=== PATIENT | female | born 1985 | race Caucasian/White ===

== ENCOUNTER 2019-06-20 13:06 | Outpatient (CLI) | payer BC, SELFPAY ==
[2019-06-20 13:31] LABS: HCT 39.7 % (36.0-46.0); HGB 13.5 g/dL (12.0-15.5); Mean Corpuscular Hemoglobin 30.3 pg (27.0-33.0); Mean Platelet Volume 10.5 fL (8.0-11.0); Platelet Count 311 x1000/uL (130-400); RBC 4.46 m/cumm (4.00-5.20); RBC Distribution Width 13.8 % (11.7-14.6); White Blood Cell Count 9.34 k/cumm (4.4-10.8)
[2019-06-20 14:52] LABS: HCG Quant, Pregnancy < 1 mIU/mL (1-3)
== END 2019-06-20 13:26 ==
PROVIDERS: PCP Nurse Practitioner Adult Health; Visit Provider Obstetrics & Gynecology
DX: Z01.818 Encounter for other preprocedural examination (principal)
CPT/HCPCS: 36415; 85027; 86850; 86900; 86901; 84702

== ENCOUNTER 2019-06-26 06:14 | Day surgery (SDC) | payer BC, SELFPAY ==
[2019-06-26] VITALS (7 sets, daily range): BP systolic 114–129; BP diastolic 65–78; PULSE 51–78; RESP 11–17; TEMP 36.3–36.9; O2SAT 96–100
[2019-06-26] MEDS: Lactated Ringers 1,000 ML 125 ML IV (07:15)
[2019-06-26] MEDS: Bupivacaine 0.25% Pres-Free 30 ML VIAL (08:11)
--- NOTE | 2019-06-26 08:25 | FALL_PTH ---
PATIENT: Juany Tristan LOC: [facility] U#:[id number] AGE/SX: 34/F ROOM: RE06/26/[address]: Milly Still MD : [id number] BED: DIS: 06/26/2019 SPEC #: [id number] RECD: 06/26/19 12:41 STATUS: [facility] #: [id number] LUDIN: 06/26/19 08:[address]: Milly Still DEPT: Surgical Specimen RECD BY: Ella Monzon ENTERED: 06/26/19 12:43 SP TYPE: Fall OTHR DR: Juany Landon Tissues: 1 - FALLOPIAN TUBE (STERILIZATION) 2 - FALLOPIAN TUBE (STERILIZATION) Procedures: GROSS AND MICRO LEVEL 2 Comments: [id number]
[2019-06-26] MEDS: oxyCODONE 5 mg/Acetaminophen 325 mg TAB PO (10:32)
--- NOTE | 2019-06-26 11:06 | ROE_ITS ---
REPORT OF OPERATIVE PROCEDURE DATE OF PROCEDURE June 26, 2019 PREOPERATIVE DIAGNOSIS Desires permanent sterilization. POSTOPERATIVE DIAGNOSIS Desires permanent sterilization. PROCEDURE Laparoscopic bilateral salpingectomy. SURGEON Milly Still M.D. ANESTHESIA General. COMPLICATIONS None. ESTIMATED BLOOD LOSS 50 cc. FLUIDS 700 cc LR. URINE OUTPUT 200 SPECIMENS Bilateral fallopian tubes. PROCEDURE DESCRIPTION The patient was taken to the Operating Room, where she was properly identified. She was then placed on the Operating Table in a dorsal supine position. General anesthesia was induced without difficult y. The patient was then placed in the dorsal lithotomy position, and prepped and draped in a normal sterile fashion. With all surgical personnel present, a forma time-out procedure was performed, confi rming the patient and the procedure. The patient had SCDs boots on. A red rubber catheter was used to drain the bladder of clear urine. A bivalved speculum was placed. The cervix was visualized, grasped on the anterior lip with a single- tooth tenaculum. The uterine manipulator was advanced without difficulty. The surgeon changed her g loves and attention was then turned to the abdomen where an infraumbilical injection of 0.25% strengt h Marcaine was made. A 5-mm incision was made. The Veress needle was advanced into the peritoneal cavity without difficulty. Location was confirmed with a fluid-filled syringe drop in pressure. The abdomen was then insufflated with CO2 gas. The Veress needle removed and under direct visualizat ion the 5-mm infraumbilical port was advanced without difficulty. The patient was then placed in Trendelenburg position. A survey of the abdomen revealed a normal live and gallbladder. Normal appendix. The ureters were identified bilaterally along their course on the pelvic sidewall. Bilateral ovaries were normal, and tubes were excised at the end of the procedure. Attention was then turned to placing the two lower 5-mm ports by first injecting with 0.25 strength M arcaine, making a 5-mm subcuticular incision and advancing the ports under direct visualization. Attention was then turned to the right, the fallopian tube was grasped on its fimbriated end. Using t he bipolar cautery, the entire tube was excised along the mesosalpinx to the level of the junction of the tube and the uterus. The tube was removed and sent to Pathology for permanent evaluation. There was a small amount of bleeding along the mesosalpinx, which was made hemostatic with cautery. Attention was then turned to the opposite tube, and again in a similar fashion, the fallopian tube wa s identified, grasped by its fimbriated end. Using the bipolar cautery, the tube was excised along t he mesosalpinx to the level of the junction with the uterus. The fallopian tube was excised at this c onjuncture, removed and sent to Pathology for permanent evaluation. The operative sites were then inspected and found to be hemostatic. Pressure was taken down and the o perative area remained hemostatic. The abdomen was desufflated of CO2 gas. Ports removed and the skin closed with #4-0 Monocryl in a subcuticular fashion. Sponge, lap, needle and instrument counts were correct x2. The uterine manipulator was removed, there was no evidence of bleeding. The patient was taken to the Recovery Room in stable condition. CC: [facility]
== END 2019-06-26 11:00 | disposition home or self-care (01) ==
PROVIDERS: PCP Nurse Practitioner Adult Health; Visit Provider Obstetrics & Gynecology
PROC: (CPT 58661; principal; 2019-06-26 07:30)
DX: Z30.2 Encounter for sterilization (principal); N83.8 Other noninflammatory disorders of ovary, fallopian tube and broad ligament
CPT/HCPCS: 58661; 88302; J0131; J1100; J1200; J1885; J2250; J2405; J3010

== ENCOUNTER 2019-09-14 16:54 | Emergency (ER) | payer MEDICAID, SELFPAY ==
[2019-09-14 16:57] VITALS: BP 136/69; PULSE 75; RESP 18; TEMP 36.7; O2SAT 100
[2019-09-14 17:11] LABS: Bilirubin Negative (Negative); Blood Small (Negative); Clarity Cloudy (Clear); Glucose 100 mg/dL (Negative); Ketones Negative (Negative); Leukocyte Esterase Trace (Negative); Nitrite Positive (Negative); Specific Gravity 1.015 (1.005-1.025); pH 8.5 (5-8)
--- NOTE | 2019-09-14 17:26 | ED.GENADUL_ITS ---
Discharge Plan Disposition Patient Disposition: HOME Discharge Details Chief Complaint: Urinary Clinical Impression: UTI (urinary tract infection) Primary Care Provider: Juany Landon ED Provider: Mohamud Pinedo Home Meds and New Rx's Prescriptions: New cephalexin [Keflex] 500 mg capsule 500 mg PO BID Qty: 9 RF: 0 Continued multivitamin [Daily Multi-Vitamin] Tablet 1 tab PO DAILY RF: 0 Denavir 1.5 GM cream 1.5 gm Topical PRN RF: 0 Discharge Instructions Instructions: Urinary Tract Infection in Women (ED) Additional Instructions: Please take full course of antibiotic as prescribed. Stop taking Azo. If symptoms persist, follow-up with your doctor or motorcycle police officer. Return to the ER for any worsening or new concerning symptoms. Discharge Data Discharge Date/Time-TO BE ENTERED AT DEPARTURE: 09/14/19 17:55 Medical Decision Making 34-year-old female here with dysuria, increased urinary frequency over the past 3 days not resolved with [id number] Azo. Patient did have low-grade fever of 99 yesterday. Patient is afebrile and well-appearing today. Urinalysis reviewed and consistent with UTI. Plan to treat with Keflex. Will initiate antibiotic treatment here. HPI General Mode of arrival: ambulatory . Date/Time Provider Initiated Documentation: 09/14/19 17:18 . Limitations to Documentation: no limitations . Information obtained by: patient . HPI Narrative: 34-year-old female here with chief complaint of urinary discomfort. Patient states burning with urination and increased urinary frequency of the past 3 days. Symptoms have persisted despite taking [id number]-[id number] Azo. She did have associated low-grade fever of 99 yesterday. No associated nausea or vomiting. She does have some back discomfort but she states this is chronic. Related Data Home Medications Medication Instructions Recorded Confirmed Denavir 1.5 gm TOPICAL PRN script 11/12/13 09/14/19 multivitamin 1 tab PO DAILY 06/12/19 09/14/19 cephalexin [Keflex] 500 mg PO BID #9 cap 09/14/19 Previous Rx's Medication Instructions Recorded cephalexin [Keflex] 500 mg PO BID #9 cap 09/14/19 Allergies Allergy/AdvReac Type Severity Reaction Status Date / Time Sulfa (Sulfonamide Allergy Severe hives,itching, Verified 07/11/19 09:18 Antibiotics) closing of the throat General Stated Complaint: Urinary MALIKA: 4 Review of Systems Constitutional Constitutional: Reports fever(s) Gastrointestinal Gastrointestinal: Denies nausea and Denies vomiting Genitourinary Genitourinary: Reports as per HPI and Reports dysuria PFSH Medical History Spontaneous early 10/2013 [facility] Quant was 71 Social History Smoking/Tobacco Use Status: Current every day Tobacco Type: e-cigarettes Tobacco: How many years used: 18 Quit status: not considering quitting Alcohol Intake: current Alcohol Intake frequency: a few times a week Drug use: Never Substance use type: does not use Details: Vapes 18mg nicotine Number of Children: 1 What is your relationship status?: Panel score (0-1 are the most socially isolated patients): 0 Seatbelt use: always Do you feel safe at home: Yes Do you feel safe in your relationship?: Yes Female Reproductive History Menstrual control method: progesterone injection History History 1 Para Hx # Term Pregnancies 1 Multiple births Hx # Pregnancies Ectopic pregnancies AB induced Hx Number of Living Children AB spontaneous Exam Const General: cooperative and no acute distress HENMT Mouth: moist mucous membranes Eyes Conjunctivae: normal conjunctivae Sclera: normal sclerae Neck Neck: trachea midline and supple Resp Auscultation: clear to auscultation bilaterally, no rales, no rhonchi and no wheezes Cardio Jugular venous pressure: no JVD Rate: regular rate and not tachycardic Rhythm: regular rhythm GI Palpation: soft, not firm, no guarding, no masses, not rigid and nontender Neuro General: alert, awake and tone normal Course Vital Signs Vital signs: Vital Signs Temperature 36.7 C 09/14/19 16:57 Pulse 75 09/14/19 16:57 Respiratory Rate 18 09/14/19 16:57 Blood Pressure 136/69 09/14/19 16:57 Pulse Oximetry 100 09/14/19 16:57 Temperature 36.7 C 09/14/19 16:57 Temperature Source Skin 09/14/19 16:57 Pulse 75 09/14/19 16:57 Respiratory Rate 18 09/14/19 16:57 Respiratory Effort Non-Labored 09/14/19 16:59 Blood Pressure 136/69 09/14/19 16:57 Blood Pressure Position Sitting 09/14/19 16:57 Pulse Oximetry 100 09/14/19 16:57 Oxygen Delivery Method Room Air 09/14/19 16:57 Oxygen Flow Rate 0 09/14/19 16:57 Pain Level 2 09/14/19 16:57
[2019-09-14 17:28] LABS: Bacteria Moderate HPF (Negative); C & S Indicated? Yes; Casts Negative LPF (Negative); Crystals Negative HPF (Negative); Epithelial Cells Rare HPF (Negative); Mucus Negative (Negative); Other Cells Negative (Negative)
[2019-09-14] MEDS: Cephalexin 500 MG CAP PO (17:33)
== END 2019-09-14 17:55 | disposition home or self-care (01) ==
PROVIDERS: Emergency Provider Student in an Organized Health Care Education/Training Program; PCP Nurse Practitioner Adult Health
DX: N39.0 Urinary tract infection, site not specified (principal); B96.20 Unspecified Escherichia coli [E. coli] as the cause of diseases classified elsewhere
CPT/HCPCS: 87077; 99283; 81003; 81015; 87086; 87186

== ENCOUNTER 2020-01-06 17:16 | Outpatient (REF) | payer MEDICAID, SELFPAY | END 2020-01-06 17:36 | LOC: NCHCN 17:16 | PROVIDERS: PCP Nurse Practitioner Adult Health; Visit Provider Nurse Practitioner Family | DX: F41.8 Other specified anxiety disorders (principal); R30.0 Dysuria | CPT/HCPCS: 87086 ==

== ENCOUNTER 2020-01-19 11:29 | Emergency (ER) | payer MEDICAID, SELFPAY ==
[2020-01-19 11:41] VITALS: BP 138/72; PULSE 75; TEMP 36.7; O2SAT 99
--- NOTE | 2020-01-19 11:55 | DI.RAD_ITS ---
EXAM: XR PORTABLE CHEST AP CLINICAL HISTORY: cough/sob/fever. TECHNIQUE: 2D digital imaging was performed. COMPARISON: No exams were available for comparison FINDINGS: LUNGS: Clear. No pleural abnormality seen. HEART: Normal. MEDIASTINUM: Normal. OTHER FINDINGS: None. IMPRESSION: No acute pulmonary findings. DATA REPOSITORY: RADIATION DOSE DELIVERED:
--- NOTE | 2020-01-19 12:16 | W.ED.GENAD ---
Discharge Plan Disposition Patient Disposition: HOME Condition: Stable Discharge Details Chief Complaint: RespSymp Clinical Impression: Cough Primary Care Provider: Juany Landon ED Provider: Blake Kothari Home Meds and New Rx's Prescriptions: No Action multivitamin [Daily Multi-Vitamin] Tablet 1 tab PO DAILY RF: 0 Denavir 1.5 GM cream 1.5 gm Topical PRN RF: 0 sertraline 50 mg Tablet 50 mg PO DAILY RF: 0 cephalexin [Keflex] 500 mg capsule 500 mg PO BID Qty: 9 RF: 0 Discharge Instructions Instructions: Acute Cough (ED) Additional Instructions: At this time your chest x-ray is unremarkable. At this time your symptoms are concerning for coronavirus. Due to the increased likelihood of your symptoms being from coronavirus the CDC does recommend testing. It takes at least 72 hours for the test results to return. You will be contacted by [facility] staff when your results return. If you do not hear from them in 72 hours, please contact [facility]. Out of an abundance of precaution it is highly recommended that you self quarantine yourself for a total of 14 days or until symptom-free for greater than 24 to 48 hours. It would be prudent to wear a mask at all times, always wash her hands frequently, and follow-up closely with your primary care provider. It is recommended that you call your primary care provider prior to reassessment. If you are going to a health facility, please call/contact them before you arrive. At this time based on your current symptoms the CDC does not recommend admission, and there is no current clinical indication for your admission here at the hospital. However it is vitally important to monitor your symptoms closely, and if you notice any worsening of your symptoms, or any new symptoms such as worsening shortness of breath, difficulty breathing, persistent fever, worsening chills, chest pain, numbness, weakness, or fainting please call and then return immediately to the emergency department for reevaluation. Please call your primary care provider as soon as possible to make them aware of your current situation and for continued monitoring. As always, it was a pleasure participating in your medical care today. Stand Alone Forms: POSITIVE COVID-19/TO BE TESTED, Work Release Medical Decision Making 34-year-old female with 3-day history of fever, cough, shortness of breath. Clinically she appears well, nontoxic. The patient demonstartes some concerning red flags as noted by the CDC for coronavirus including fever, cough, and/or shortness of breath. The patient looks notably clinically well, and does not demonstrate evidence of respiratory distress, significant or severe illness, or sepsis. Per CDC recommendations, coronavirus testing will be performed, I will set the patient up to have testing done through the tent tomorrow. Additionally, patient currently does not demonstrate symptoms indicative of admission or further observation here. At this time based on the patient's current clinical picture symptoms are likely secondary to a non-coronavirus viral illness. Out of an abundance of precaution taking into account the current level of national concern, the patient's entire clinical picture, and CDC recommendations, the patient can be discharged home. Per CDC recommendations we will recommend a 14-day quarantine of the patient I have discussed good handwashing techniques, the importance of a mask, and we have also included CDC recommendations for home monitoring and isolation. I have extensively reviewed the treatment plan and discharge instructions with the patient. I have addressed all patient concerns at this time. The patient was made aware of what symptoms to monitor for that would warrant a return to the emergency department. I also discussed the importance of calling the patients's PCP, as well as the ED for any concern on prior to return. Discussed the plan with the patient, they demonstrate verbal understanding and agreement with our assessment and plan at this time. Chest x-ray obtained in the ER negative. Will test for coronavirus and flu tomorrow. Work note given as well Medical Records Medical records reviewed: Yes I reviewed the patient's medical records. Imaging Data Radiologic Study: Attestation: I personally reviewed and interpreted this imaging study as follows: Imaging: X-Ray My impression: Chest x-ray read by me as negative, confirmed later by virtual radiology HPI General Mode of arrival: ambulatory. Date/Time Provider Initiated Documentation: 01/19/20 11:45. Limitations to Documentation: no limitations. Information obtained by: patient. HPI Narrative: 34-year-old female with no significant past medical history, who does vape daily, presents to the ER for evaluation of cough, subjective shortness of breath, fever for the past 3 days. Denies recent travel or sick contacts. Has not taken any [id number] medications for her symptoms today. Denies headache, ear pain. Does report mild sore throat. Denies abdominal pain, nausea, vomiting, back pain, bowel or bladder symptoms. Denies numbness, tingling, weakness. Denies skin rash. Related Data Home Medications Medication Instructions Recorded Confirmed Denavir 1.5 gm TOPICAL PRN script 11/12/13 01/19/20 multivitamin 1 tab PO DAILY 06/12/19 01/19/20 cephalexin [Keflex] 500 mg PO BID #9 cap 09/14/19 sertraline 50 mg PO DAILY 01/19/20 01/19/20 Previous Rx's Medication Instructions Recorded cephalexin [Keflex] 500 mg PO BID #9 cap 09/14/19 Allergies Allergy/AdvReac Type Severity Reaction Status Date / Time Sulfa (Sulfonamide Allergy Severe hives,itching, Verified 01/19/20 11:43 Antibiotics) closing of the throat General Stated Complaint: RespSymp MALIKA: 4 Review of Systems Constitutional Constitutional: Denies fatigue, Reports fever(s) and Denies weakness Eyes Eyes: Denies eye discharge ENT Ears, Nose, Mouth, and Throat: Reports sore throat Cardiovascular Cardiovascular: Denies chest pain and Reports dyspnea Respiratory Respiratory: Reports cough and Reports dyspnea Gastrointestinal Gastrointestinal: Denies abdominal pain, Denies nausea and Denies vomiting Genitourinary Genitourinary: Denies dysuria Musculoskeletal Musculoskeletal: Reports myalgias, Denies numbness and Denies tingling Integumentary/Breasts Skin/Breast: Denies rash Neurologic Neurologic: Denies numbness, Denies tingling and Denies weakness Endocrine Endocrine: Denies fatigue [facility] Medical History Spontaneous early 10/2013 [facility] [place] 71 Social History Smoking/Tobacco Use Status: Current every day Tobacco Type: e-cigarettes Tobacco: How many years used: 18 Quit status: not considering quitting Alcohol Intake: current Alcohol Intake frequency: a few times a week Drug use: Never Substance use type: does not use Details: Vapes 18mg nicotine Number of Children: 1 What is your relationship status?: Panel score (0-1 are the most socially isolated patients): 0 Seatbelt use: always Do you feel safe at home: Yes Do you feel safe in your relationship?: Yes Female Reproductive History Menstrual control method: progesterone injection History History 1 Para Hx # Term Pregnancies 1 Multiple births Hx # Pregnancies Ectopic pregnancies AB induced Hx Number of Living Children AB spontaneous Exam Const General: cooperative, healthy appearing, comfortable and no acute distress Orientation: alert and awake [facility] Head: normal to inspection, normocephalic and atraumatic Face and sinus: normal facial exam Mouth: moist mucous membranes Throat: posterior oropharynx normal Eyes Conjunctivae: conjunctivae normal Neck Neck: normal visual inspection, full ROM, no lymphadenopathy, no meningeal signs, trachea midline and supple Resp Effort & Inspection: normal respiratory effort, able to speak in complete sentences and cough Quality of cough: dry Auscultation: clear to auscultation bilaterally Cardio Rate: regular rate Rhythm: regular rhythm Skin General skin exam: no rashes or lesions noted Neuro General: patient alert, patient awake, moves all extremities and no focal motor deficits Motor: muscle tone normal throughout Sensory Exam: no sensory deficits noted Psych Appearance: grossly normal Mental Status: mental status grossly normal Course Vital Signs Vital signs: Vital Signs Temperature 36.7 C 01/19/20 11:41 Pulse 75 01/19/20 11:41 Blood Pressure 138/72 01/19/20 11:41 Pulse Oximetry 99 01/19/20 11:41 Temperature 36.7 C 01/19/20 11:41 Temperature Source Temporal Artery Scan 01/19/20 11:41 Pulse 75 01/19/20 11:41 Respiratory Effort Non-Labored 01/19/20 11:44 Respiratory Depth Normal 01/19/20 11:44 Blood Pressure 138/72 01/19/20 11:41 Blood Pressure Position Sitting 01/19/20 11:41 Pulse Oximetry 99 01/19/20 11:41 Oxygen Delivery Method Room Air 01/19/20 11:41 Oxygen Flow Rate 0 01/19/20 11:41 Pain Level 0 01/19/20 11:41
--- NOTE | 2020-01-19 12:21 | DI.VRAD_ITS ---
PROCEDURE INFORMATION: Exam: XR Chest, 1 View Exam date and time: 01/19/2020 11:56 AM Age: 34 years old Clinical indication: Type not specified; Patient HX: Tachycardia, regular chest pain, recent travel TECHNIQUE: Imaging protocol: XR of the chest Views: 1 view. COMPARISON: No relevant prior studies available. FINDINGS: Lungs: Unremarkable. No consolidation. Pleural space: Unremarkable. No pleural effusion. No pneumothorax. Heart/Mediastinum: Unremarkable. No cardiomegaly. Bones/joints: Unremarkable. IMPRESSION: No acute findings. Dictated and Authenticated by: James Wen MD. Ordering:KVNG Lozano MD
== END 2020-01-19 12:46 | disposition home or self-care (01) ==
PROVIDERS: Emergency Provider Physician Assistant; PCP Nurse Practitioner Adult Health
DX: R06.02 Shortness of breath (principal); R50.9 Fever, unspecified; R05 Cough; F17.290 Nicotine dependence, other tobacco product, uncomplicated
CPT/HCPCS: 87449; 99283; U0003; 71045

== ENCOUNTER 2020-01-20 08:27 | Outpatient (CLI) | payer MEDICAID, SELFPAY ==
[2020-01-21 19:42] LABS: SARS-CoV-2 RNA Undetected (Undetected); SARS-CoV-2 Specimen Source Nasopharynx
== END 2020-01-20 08:47 ==
PROVIDERS: PCP Nurse Practitioner Adult Health; Visit Provider Physician Assistant
DX: Z20.828 Contact with and (suspected) exposure to other viral communicable diseases (principal)
CPT/HCPCS: U0003

== ENCOUNTER 2020-05-27 14:39 | Outpatient (REF) | payer MEDICAID, SELFPAY | END 2020-05-27 14:59 | LOC: NCHCN 14:39 | PROVIDERS: PCP Nurse Practitioner Adult Health; Visit Provider Nurse Practitioner Family | DX: R30.0 Dysuria (principal) | CPT/HCPCS: 87086 ==

== ENCOUNTER 2020-06-03 12:37 | Outpatient (REF) | payer MEDICAID, SELFPAY | END 2020-06-03 12:57 | LOC: NCHCN 12:37 | PROVIDERS: PCP Nurse Practitioner Adult Health | DX: R30.0 Dysuria (principal) | CPT/HCPCS: 87480; 87510; 87660 ==

== ENCOUNTER 2021-03-01 14:09 | Outpatient (REF) | payer MEDICAID, SELFPAY ==
--- OUTSIDE RECORDS SUMMARY | 2021-03-01 14:14 | XMS_ITS | Encounter Summary ---
:1985 Author Care Team Providers Name Role Phone Patti Jj Cam SECURITY DIRECTOR Primary Care Provider [phone] [facility] Medical Records Primary Care Provider [phone] Reason for Visit Telehealth visit - Patient at home; [facility] Results for Diagnostic Polysomnogram Assessment and Plan Assessment Note I provided greater than 40 minutes in the care of this patient, more than half the time was spent in [id number] counseling. The patient is home . The provider is in the office . The patient has been positively identifi ed and has consented to a telehealth visit. This visit was performed virtually using synchronous audio-visual connection via Zoom. As such, the physical examination is necessarily limited. The risks and benefits of the use of this alternative livier tform were discussed with the parent and verbal consent was obtained. My assessment and plans are based on such examination. Further evaluation, including in-person examination, may be needed depending on the response to management or today's recommendation. 1. Obstructive sleep apnea syndr ome New Diagnosis of Mild Obstruc tive Sleep Apnea associated with nocturnal hypoxemia and sleep fragmentation, in patient presenting with loud snoring, witnessed apneas, excessive daytime sleepin ess ESS 15/24. She also reports very res tless sleep which is suspicious for PLMD. Comorbidities include nicotine dependenc e, class III obesity, anxiety, low back pain We reviewed sleep study results in detail including apnea hypopnea index, positional data and oxygen data. We reviewed discussion of Obstructiv e Sleep Apnea, including pathophysiology, associated alf cardiovascular, neurocognitive and overall health effects, and importance of treatment. Treatment options discussed. Rod serrato reviewed process of starting treatment and commonly encountered problems and ways to find support and troubleshooting problems. Avoid drowsy driving and drowsy driv ing precautions as applicable. 12/28/20: d/w pt PSG results includi ng low O2 levels. recommend apap 5 to 15cm via KMP. pt agreeable. f/u in ~2 months ? auto-Pap equipment 2. Health education given ? learning about sleeping we ll 3. Periodic limb movement disord er 11/16/20: monitor at PSG. if po sitive, will obtain labs to esequiel first. 12/28/20: moderate PLMD on PSG. no sig rylan usals. will assess after she starts cpap to see if this may improve. if not, consider labs. 4. Psychophysiologic insomnia 11/16/20: certainly RYAN can be contributing. also she doesnt have much unwinding time when she gets home from cle[employer] work at night. advised her to give herself 15 to 30 min unwinding/electroni c free time before intended sleep time. Pharmacologic vs. non pharmacologic options discussed. Patient preferred trying supplements first. Will do trial of Magnesium Gluconate 1000mg daily (or mag glycinate 400mg daily) 12/28/20 tried magnesium MG 250 4 tabs jagjit ly no perceived benefit ended up getting diarrhea so stopped. 5. Daytime hypersomnia 11/16/20 ESS 15, very high, on consult. advised drowsy driving precautions. 12/28/20: ESS 9 today. rec cpap for her os a Discussion Note Remember to always take precautio ns on drowsy driving. If you experience sleepiness while driving, find a safe area to pullman conductor and take a break. Research suggests taking a power nap (15 to 20 vijay katelynn) and/or coffee (or caffeine containi ng food such as dark chocolate) may be effective aides. As always, you should use your judgement on whether to drive at all, if you are sleep deprived or feeling sleepy. Thank you for the kind opportunity to p articipate in your medical care. You expressed good understanding of your diagnosis and treatment, and agreed to proceed with the plan we discussed together. If y ou have any questions or concerns prior to your next appointment, please call Sleep Clinic. Plan of Care Patient Instructions Your sleep study shows Obstructive Sleep Apnea and we discussed your treatment options. You expressed good understanding and agreed to proceed with CPAP/BIPAP therapy. We discussed process of initiating thera py, commonly encountered problems and ways to get help and troubleshoot them. I have sent a script for new machine to the following Durable Medical Equipment Provider. Please contact them in 2 week if you do not hear from them by then. [x ] [employer] - [facility] ry: or They will make an appointment for you to pick up driver the machine and show you how to put on the mask and operate the machine. Making the effort to use your machine ev belem time you sleep is very important, especially as you get used to therapy. Please call them if you have any questions on how to use machine or use your mask. Ca ll them if your mask is not fitting righ t and need to be fitted with a new one. This is important to do as early as possible. Please call Sleep Clinic if you have any other concerns or problems before your next appointment. Remember to bring your entire PAP recreation attendant supervisor including mask, hose, and plug to your future appointme nts. This allows me to provide you with the best patient care and address any of your questions/concerns on therapy. Reminders Provider Appointments Office 15 03/17/2021 Ye Sandoval NP 10:30AM Lab None ? ? recorded. Referral None ? ? recorded. Procedures None ? ? recorded. Surgeries None ? ? recorded. Imaging None ? ? recorded. Medications Name Start Date ? ? Denavir 1 % topical cream ? APPLY TO THE AFFECTED AREA(S) BY TOPICA L ROUTE EVERY 2 HOURS DURING WAKING HOURS FOR 4 DAYS Medications Administered None recorded. Vitals Height Weight BMI 5 ft 8 in 259 lbs 39.4 kg/m2 Results Lab Results None recorded. Allergies Code Code System Name Reaction Severity Onset 893649 RxNorm Bactrim Other Moderate ? Problems Name Status Onset Date Source ? Obesity Active 11/13/2020 ? Anxiety Disorder Active 11/13/2020 ? Nicotine Dependence Active 11/13/2020 ? Skin Tag Active 11/13/2020 ? Lumbago with Sciatica Active 11/13/2020 ? Low Back Pain Active 11/13/2020 ? Somatic Dysfunction of Lumbosacral Region Active 2020 ? Spondylolisthesis Active 11/13/2020 ? Frontal Headache Active 11/13/2020 ? Snoring Active 11/13/2020 ? Dysuria Active 11/13/2020 ? Family History of Alcoholism Active 11/13/2020 ? Disorder of Lumbosacral Intervertebral Disc Active 10/24 ? Procedures None recorded. Vaccine List None recorded. Social History Blind or serious difficulty N seeing E-cigarette/Vape Status Current user of electronic cigarettes Alcohol intake Occasional Notes: 2 beers a week Live alone or with others? with others Animal exposure? Y Notes: rabbit Hard of hearing or deaf in one N or both ears? Caffeine intake Occasional Notes: monster or coffee 1/2 a day Drug Use N Functional Status No Impairment. Past Encounters 12/28/2020 Obstructive Sleep Apnea Syndrome; Health Education Given; Periodic Limb Movement Disorder; Psychophysiologic Insomnia; Daytime Hypersomnia Will Medina MD, Board Certified Sleep Ph ysician: [address] [place] [address] [address], [place] [address], Ph. History of Present Illness Note: <p>
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
</p><p>Past medical history includes nicotine dependence, obesity, anxiety, low back pain</p><p>
</p><p><strong>PREVIOUS SLEEP EVALUATION:</strong>

<span>presents for sleep consultation at kind request of Patti </span>Cam<span> BURNING SUPERVISOR regarding snoring.</span>
<br& gt;
<strong>TODAY:</strong>

{{In-lab Sleep Study# Home SleepStudy}} was {{tolerated# well tolerated unpleasant}} and was {{close to typical# typical not typical}} night sleep for patient.

{{Patient continues to endorse symptoms above.# }}

Patient {{knows*}} {{family member / mom# friend family member friends and family members}} on {{PAP therapy# oral appliance}}.

Patient {{wishes# does not wish}} to try {{PAP therapy# Oral Appliance}}. Feels {{excited motivated*}} to start {{PAP therapy# oral appliance}}.
</p> Review of Systems ? Notes: <p>A 14-point <strong>REVIEW OF SYSTEM</strong> was obtained and reviewed, includes CONSTITUTIONAL, EYE S, ALLERGY, NEUROLOGIC, ENDOCRINE, GI, CARDIOVASCULAR, SKIN, MSK, E NT, , RESPIRATORY, HEMATOLOGIC, PSYCH systems. Pertinent symptoms are discu ssed in history, otherwise negative.</p><p>freq urination</p> Physical Exam ? Notes: <p>GENERAL: {{well appearing # chronically ill appearing}}, appearing {{stated# older than younger than}} age, no acute distress, {{obese# normal tall lean}} build
HEENT: atraumatic skull, anicteric
RESPIRATORY: qu iet respiration, able to speak in full sentences without dyspnea, no accessor y muscle use,
SKIN: no facial skin rash, no facial skin lesions
PSYCH IATRIC: well groomed, fluent speech, good insight, linear thought process, good eye contact, {{balanced# flat}} affect
NEUROLOGIC: alert, oriented, symmetric facial expression

<strong >Clinical Data Reviewed:</strong>

1. {{Modified Pediatric [place] Sleepiness Scale [place] Sleepiness Scale*}}: _15_ out of {{24# 21 due to not driving}} on consult. 9 today

2. {{Sleep study results as abo ve.# Sleep study results not available, requested Unable to obtain s leep study reports No sleep study reports}}

3. {{No per tinent labs available. # Lab results as outlined. Labs pending. }}

</p>
--- OUTSIDE RECORDS SUMMARY | 2021-03-01 14:14 | XMS_ITS ---
:1985 Author Care Team Providers Name Role Phone JORGE H CASSIE TRAINING REPRESENTATIVE Primary Care Provider [phone] [facility] MEDICAL RECORDS Primary Care Provider [phone] Allergies Code Code System Name Reaction Severity Status Onset 618450 RxNorm Bactrim Other Moderate Active ? Medications Name Status Start Date Stop Date ? ? Denavir 1 % topical cream Active ? Not av ailable APPLY TO THE AFFECTED AREA(S) BY TOPICA L ROUTE EVERY 2 HOURS DURING WAKING HOURS FOR 4 DAYS magnesium 250 mg tablet Completed ? 12/29/19 Take 4 tabs daily Multivital Completed ? 11/16/2020 Oral Tab 1 tab qd Nicorette 4 mg buccal lozenge Completed ? Take 1 tablet every 2 hours by oral route. zolpidem 5 mg tablet Completed ? 12/28/2020 FOR NIGHT OF SLEEP STUDY ONLY: take 1 t ablet as needed for insomnia after sleep study set up. may repeat 1 hour later if not effective. Problems Name Status Onset Date Source ? [...] Disc Active 10/24 ? Procedures None recorded. Results Lab Results None recorded. Past Encounters 12/28/2020 Obstructive Sleep Apnea Syndrome; Health Education Given; Periodic Limb Movement Disorder; Psychophysiologic Insomnia; Daytime Hypersomnia Will Medina MD, Board Certified Sleep Ph ysician: [address] [place] [address] [address], [place] [address], Ph. 11/16/2020 Snoring; Periodic Limb Movement Disorder ; Psychophysiologic Insomnia; Daytime Hypersomnia Will Medina MD, Board Certified Sleep Ph ysician: [address] [place] [address] [address], [place] [address], Ph. Social History None recorded. Vaccine List None recorded. Plan of Care Patient Instructions Your sleep [...] hear from them by then. [x ] [employer] - [facility] ry: or They will make an appointment for you to machine operator picker the machine and show you how to [...] appointment. Remember to bring your entire PAP supervisor cutting and boning including mask, hose, and plug to your future appointme nts. This allows me to provide you with the best patient care and address any of your questions/concerns on therapy. We discussed signs and symptoms you are exhibiting that may be due to Obstructive Sleep Apnea or other sleep disorders. We went over sleep conditions that I suspect you may have that will benefit f rom further evaluation. The next step is to diagnose your sleep disorder through sleep study testing. We will get permission from your insurance to do the sleep study. Call us back in 2 to 3 weeks if yo u do not get a call from us about schedu ling your sleep study. Bring all your home medications to the sleep study including any sleep aids. If you have further concerns on falling asleep for the sleep study, we do have Ambien 5 to 10 mg to be used as needed. Severino alison, please note you should make arrange ments for a ride home in case you get morning drowsiness from taking sleep aid. Please call [facility] if you ar e not able to make it to your sleep study Also for difficulty falling asleep and s hutting off your mind, you can try magnesium supplementation. Doctor's Best High Absorption Magnesium 100mg 2 to 4 tabs at night. I also sent a 2nd choice magnesi um product to your pharmacy, if they cov er that, you can use that instead. Reminders Provider Appointments None recorded. ? ? Lab None recorded. ? ? Referral None recorded. ? ? Procedures None recorded. ? ? Surgeries None recorded. ? ? Imaging None recorded. ? ? Vitals 12/28/2020 08:30AM Office 30 Height Weight BMI 172.72 cm 117.48 kg 39.4 kg/m2 11/16/2020 11:15AM New Patient 44 Height Weight BMI Blood Pressure 172.72 cm 128.37 kg 43 kg/m2 158/80 mm[Hg]
[2021-03-03 16:07] LABS: COVID-19 RT-PCR UVMMC Result Negative (Negative)
== END 2021-03-01 14:10 | disposition home or self-care (01) ==
LOC: NCHCN 14:09
PROVIDERS: PCP Nurse Practitioner Adult Health; Visit Provider Family Medicine
DX: Z20.822 Contact with and (suspected) exposure to COVID-19 (principal); B97.89 Other viral agents as the cause of diseases classified elsewhere
CPT/HCPCS: U0003

== ENCOUNTER 2021-03-01 23:06 | Emergency (ER) | payer MEDICAID, SELFPAY ==
[2021-03-01 23:06] VITALS: BP 119/64; PULSE 90; RESP 20; TEMP 39.8; O2SAT 94
[2021-03-01] MEDS: Normal Saline 1,000 ML 1000 ML IV (23:20)
[2021-03-01 23:39] VITALS: TEMP 39.4
[2021-03-01] MEDS: ACETAMINOPHEN 1,000 MG/100 ML BTL 400 MG IVPB (23:39)
[2021-03-01] MEDS: Ketorolac 30 MG/ML VIAL IVP (23:39)
[2021-03-01 23:40] LABS: Abs Immature Grans 0.02 10^3/uL (0.0-0.06); Absolute Basophil Count 0.04 10^3/uL (0.0-0.2); Absolute Eosinophil Count 0.02 10^3/uL (0.0-0.7); Absolute Lymphocyte Count 0.92 10^3/uL (1.2-3.4); Absolute Monocyte Count 0.74 10^3/uL (0.1-0.8); Absolute Neutrophil Count 8.48 10^3/uL (1.2-6.7); Basophils % 0.4; Eosinophils % 0.2; HCT 38.8 % (36.0-46.0); HGB 13.1 g/dL (11.2-15.7); Immature Grans % 0.2; MCH 29.6 pg (27.0-33.0); MCHC 33.8 % (32.0-36.0); MCV 87.6 fL (80-95); MPV 10.9 fL (8.0-11.0); Monocytes % 7.2; Nucleated RBC 0 %; Platelet Count 259 10^3/uL (130-400); RBC 4.43 10^6/uL (3.93-5.22); RDW 12.3 % (11.7-14.6); RDW-SD 39.8 fL; WBC 10.22 10^3/uL (4.4-10.8)
--- NOTE | 2021-03-01 23:43 | W.ED.GENAD ---
Discharge Plan Disposition Patient Disposition: HOME Condition: Good Discharge Details Clinical Impression: Atelectasis of both lungs, UTI (urinary tract infection), Fever Primary Care Provider: Juany Landon ED Provider: Power Salguero Home Meds and New Rx's Prescriptions: New levofloxacin 750 mg tablet 750 mg PO DAILY Qty: 5 RF: 0 Continued acetaminophen [Tylenol] 325 mg Tablet 1,000 mg PO PRN PRNRF: 0 Discharge Instructions Instructions: Urinary Tract Infection in Women (ED) Additional Instructions: At this time your work-up shows evidence of a mild urinary tract infection, and some mild infection in your lungs. Your Covid, flu and RSV test was negative here. We have given you the first dose of the antibiotic levofloxacin here. The prescription for levofloxacin has been sent to your [facility]. Please take the next dose tomorrow. You can take Tylenol and Motrin for your fever. You can take 800 mg of Motrin every 6 hours and 1000 mg of Tylenol every 6 hours to help control your fever. Please drink 10 to 12 cups of water every day. If you notice any worsening of your symptoms, or any new symptoms such as vomiting, diarrhea, worsening fever, neck pain, headache, chills, shortness of breath, chest pain, numbness, weakness, or fainting , please return immediately to the emergency department for reevaluation. Please follow up with your primary care provider as soon as possible for reassessment and reevaluation. As always, it was a pleasure participating in your medical care today. Referrals: Deb Jarvis DO [OSTEOPATHIC DOCTOR] - Juany Landon [Primary Care Provider] - Medical Decision Making This is a 36-year-old female with no significant past medical history who presents today for evaluation of fever, muscle aches, mild shortness of breath. Patient states that all of these came on relatively suddenly yesterday. Shortness of breath began today. She denies any chest pain. She denies any contact with Covid. She did have a Covid test already but the results are not yet back. She denies any cough or urinary complaints. She admits to a very mild frontal headache but no neck pain, neck stiffness or posterior. She has had a fever at home of 103, which has been unresponsive to Tylenol. She did take ibuprofen this morning, she took Tylenol at 6 PM tonight. Patient denies any known exposure to Covid. She did have her first shot of low during the vaccine within the past 2 weeks. No other complaints at this time. No other modifying factors. Patient does admit to seeing cloudy urine occasionally though. She denies any urinary complaints otherwise though. Physical exam is relatively unremarkable. Lung sounds are relatively clear, no neck stiffness, nuchal rigidity, negative Kernig's and Brudzinski's. Calves are nontender. Abdomen nontender. Differential includes COVID-19, she is not hypoxic here but she is definitely febrile. Subjective shortness of breath may be a component of a viral pulmonary etiology. PE is on the differential. UTI is on the differential for the cause of her fever. Clinically she shows no signs concerning for meningitis at this time, and no indication for LP. We will rehydrate, give Ofirmev and Toradol, get basic labs, D-dimer, monitor closely and reassess 2:30 AM Laboratory work-up has returned, no white count or bandemia. Mild left shift, mild lymphopenia. No transaminitis. Electrolytes stable. D-dimer is elevated at 816, CTA was ordered. Lactate is only 1.0. Urinalysis shows small amount of WBCs, small leuk esterase and positive nitrites. Concerning for infectious etiology. Influenza RSV and Covid was negative. CTA result returned, mild atelectasis in the bases of the lungs, but no other acute process. On reassessment after fluids, medicine, and testing the patient has near complete resolution of her symptoms. Current temperature is 98 ?F, headache is completely resolved, she feels well, she does not feel short of breath. Vital signs remained stable with no hypoxemia or tachycardia. Patient feels well and would like to go home. Repeat neurologic exam is normal, repeat physical exam she continues to show no meningeal signs. Suspect UTI and potential early mild atelectasis versus pneumonia as the cause of her fever. Will give Levaquin for both pulmonary and urinary coverage. Recommend continued NSAIDs at home. I did contact the significant other and discussed this with him. We will give the first dose of Levaquin here and a prescription for use. I have extensively reviewed the treatment plan and discharge instructions with the patient. I have addressed all patient concerns at this time. The patient was made aware of what symptoms to monitor for that would warrant a return to the emergency department. Discussed the plan with the patient, they demonstrate verbal understanding and agreement with our assessment and plan at this time. The documentation in this chart was dictated using [employer] dictation software. Please excuse any dictation errors. FINDINGS: Pulmonary arteries: No pulmonary embolism identified. Aorta: No thoracic aortic aneurysm or dissection. Thyroid: Thyroid gland partially excluded from view but grossly unremarkable through its visualized portion. Lungs: Symmetric dependent ground-glass pulmonary density with an appearance most suggestive of atelectasis. No region of pulmonary consolidation. Pleural spaces: No pleural effusion or pneumothorax. Heart: Normal sized heart Lymph nodes: No pathologically enlarged mediastinal or hilar lymph nodes. Clustered mildly prominent left axillary lymph nodes with the largest measuring 1.1 cm x 1.5 cm on image 83 of series 6, nonspecific. Diaphragm: Elevation of the right hemidiaphragm Bones/joints: Lower ribs partially excluded from view and incompletely evaluated. Otherwise, no acute fracture seen among the bones of the chest. Soft tissues: No gross soft tissue mass or fluid collection seen in the chest wall. IMPRESSION: No active disease is seen in the chest. Thank you for allowing us to participate in the care of your patient. Dictated and Authenticated by: Mihir Tovar MD 03/02/2021 2:24 AM Eastern Time ([place] & [place]) HPI General Date/Time Provider Initiated Documentation: 03/01/21 23:10. HPI Narrative: This is a 36-year-old female with no significant past medical history who presents today for evaluation of fever, muscle aches, mild shortness of breath. Patient states that all of these came on relatively suddenly yesterday. Shortness of breath began today. She denies any chest pain. She denies any contact with Covid. She did have a Covid test already but the results are not yet back. She denies any cough or urinary complaints. She admits to a very mild frontal headache but no neck pain. She has had a fever at home of 103, which has been unresponsive to Tylenol. She did take ibuprofen this morning, she took Tylenol at 6 PM tonight. Patient denies any known exposure to Covid. She did have her first shot of low during the vaccine within the past 2 weeks. No other complaints at this time. No other modifying factors Related Data Home Medications Medication Instructions Recorded Confirmed acetaminophen [Tylenol] 1,000 mg PO PRN PRN 03/01/21 03/01/21 levofloxacin 750 mg PO DAILY #5 tab 03/02/21 Previous Rx's Medication Instructions Recorded levofloxacin 750 mg PO DAILY #5 tab 03/02/21 Allergies Allergy/AdvReac Type Severity Reaction Status Date / Time Sulfa (Sulfonamide Allergy Severe hives,itching, Verified 01/19/20 11:43 Antibiotics) closing of the throat General MALIKA: 4 Review of Systems All systems reviewed & are unremarkable except as noted in HPI and below PFSH Medical History Spontaneous early 10/2013 BHG Quant was 71 Social History Smoking/Tobacco Use Status: Current every day Tobacco Type: e-cigarettes Tobacco: How many years used: 18 Quit status: not considering quitting Smoking risk assessment performed?: Yes Alcohol Intake: current Alcohol Intake frequency: a few times a week Drug use: Never Substance use type: does not use Details: Vapes 18mg nicotine Number of Children: 1 What is your relationship status?: Panel score (0-1 are the most socially isolated patients): 0 Seatbelt use: always Do you feel safe at home: Yes Do you feel safe in your relationship?: Yes Female Reproductive History Menstrual control method: progesterone injection History History 1 Para Hx # Term Pregnancies 1 Multiple births Hx # Pregnancies Ectopic pregnancies AB induced Hx Number of Living Children AB spontaneous Exam Narrative Exam Narrative: 1.Const: Well-nourished, Well-developed, appearing stated age 2.Eyes: PERRL, no conjunctival injection, and symmetrical lids. 3.ENT: Atraumatic external nose and ears. Moist MM. Neck: Symmetric, trachea midline, No thyromegaly. No evidence of otitis media. Patient demonstrates good movement of cervical neck. There is no nuchal rigidity, no nuchal tenderness. Patient is able to flex the neck without any difficulty or significant pain. Negative Kernig's and Brudzinski sign. 4.CVS: +S1/S2, No murmurs or gallops. Peripheral pulses 2+ and equal in all extremities. Brisk capillary refill in all extremities. 5.RESP: Unlabored respiratory effort. Clear to auscultation bilaterally. No wheezes rales or rhonchi 6.GI: Soft, Nontender/Nondistended, No hepatosplenomegaly. No guarding or rebound. 7.MSK: Normocephalic/Atraumatic, Extremities w/o deformity or ttp No cyanosis or clubbing, Normal movement of all extremities 8.Skin: Warm, Dry. No rashes or lesions. 9.Neuro: director automotive II-XII grossly intact. Sensation grossly intact, no focal neurologic deficits. All 6 cardinal planes of vision are fully intact. No evidence of rotatory or vertical nystagmus. The patient demonstrated a normal tqiyxt-aizc-tetgmb, good dexterity. There was no evidence of dysdiadochokinesia. Patient was able to ambulate without difficulty. There was no wide-based gait. Romberg testing was normal. Wtpn-wd-uccy testing was normal. Sensation was intact bilaterally as well as muscle strength bilaterally for all extremities. Patient was able to verbalize butter cup with no slurring, or miss pronunciation. 10.Psych: (AAO) x3. Appropriate mood and affect Course Vital Signs Vital signs: Vital Signs Temperature 39.4 C H 03/01/21 23:39 Temperature 39.4 C H 03/01/21 23:39 Lab/Test Results Lab/Test Results: 03/01/21 23:30 Blood Blood Culture - Pending 03/01/21 23:21 Blood Blood Culture - Pending Laboratory Tests Range/Units 03/01/21 03/01/21 23:30 23:30 WBC (4.4-10.8) 10^3/uL 10.22 RBC (3.93-5.22) 10^6/uL 4.43 Hgb (11.2-15.7) g/dL 13.1 Hct (36.0-46.0) % 38.8 MCV (80-95) fL 87.6 MCH (27.0-33.0) pg 29.6 MCHC (32.0-36.0) % 33.8 RDW (11.7-14.6) % 12.3 Plt Count (130-400) 10^3/uL 259 MPV (8.0-11.0) fL 10.9 Immature Gran % 0.2 Neutrophils % 83.0 Lymphocytes % 9.0 Monocytes % 7.2 Eosinophils % 0.2 Basophils % 0.4 Nucleated RBC % % 0 Absolute Neutrophils (1.2-6.7) 10^3/uL 8.48 H Absolute Lymphocytes (1.2-3.4) 10^3/uL 0.92 L Absolute Monocytes (0.1-0.8) 10^3/uL 0.74 Absolute Eosinophils (0.0-0.7) 10^3/uL 0.02 Absolute Basophils (0.0-0.2) 10^3/uL 0.04 VBG Lactate (0.6-1.4) mmol/L 1.0
[2021-03-01 23:46] VITALS: BP 124/63; PULSE 90; RESP 23; O2SAT 95
[2021-03-01 23:53] LABS: ALT 28 U/L (14-59); AST 22 U/L (15-37); Albumin 3.4 g/dL (3.4-5.0); Alkaline Phosphatase 82 U/L (46-116); Anion Gap 11.9 mmol/L (3-11); BUN 7 mg/dL (7-18); Bilirubin, Total 0.5 mg/dL (0.2-1.0); CO2 25.1 mmol/L (21.0-32.0); CREATININE 0.9 mg/dL (0.55-1.02); Chloride 101 mmol/L (98-107); Glucose 150 mg/dL (74-106); Potassium 3.4 mmol/L (3.5-5.1); Sodium 138 mmol/L (136-145); Total Protein 7.5 g/dL (6.4-8.2)
[2021-03-02] VITALS (11 sets, daily range): BP systolic 94–124; BP diastolic 50–94; PULSE 54–89; RESP 16–19; TEMP 37–37.1; O2SAT 93–96
--- NOTE | 2021-03-02 | DI.CT_ITS ---
Exam(s) CT CHEST PE CTA EXAM: CT CHEST PE CTA CLINICAL HISTORY: fever, sob, covid, dimer high, r/o pe. TECHNIQUE: Imaging Protocol: Axial CT angiography was performed with multi-slice acquisition and mu lti-planar and/or 3D reconstructions. CONTRAST MATERIAL: Intravenous: Omnipaque 350 Contrast volume:structured data in ml COMPARISON: No exams were available for comparison FINDINGS: CT angiography of the chest was performed with intravenous infusion of 100 cc of Omnipaque 350. The lungs are clear except for mild dependent atelectasis.. No pleural effusion. Tracheobronchial tr ee appears intact. No evidence of pulmonary embolic disease. Thoracic aorta is of normal diameter, no thoracic aortic an eurysm or dissection, major branch vessels appear intact. No mediastinal or hilar adenopathy. Images obtained through the upper abdomen show unremarkable appearance of the visualized portions of the liver, and spleen. IMPRESSION: Negative CT angiogram of the chest. No evidence of pulmonary embolic disease. RADIATION DOSE DELIVERED: 456.69mGy.cm Total DLP 456.69mGy.cm Total DLP DATA REPOSITORY: All CT scans at this facility are submitted to the National Radiology Data Registry (NRDR) Dose Index Registry (DIR) with the [employer] (ACR). RADIATION OPTIMIZATION: All CT scans at this facility use at least one of these dose optimization te chniques: automated exposure control; mA and/or kV adjustment per patient size (includes targeted exa ms where dose is matched to clinical indication); or iterative reconstruction.
[2021-03-02 00:07] LABS: D-Dimer 816 ng/mlFEU (<500)
[2021-03-02 00:29] LABS: Bilirubin Negative (Negative); Blood Small (Negative); Clarity Sl Cloudy (Clear); Glucose Negative (Negative); Ketones Negative (Negative); Leukocyte Esterase Small (Negative); Nitrite Positive (Negative); Urobilinogen 0.2 EU/dL (Up TO 0.2)
[2021-03-02 00:34] LABS: Bacteria Many HPF (Negative); C & S Indicated? Yes; Casts Negative LPF (Negative); Crystals Negative HPF (Negative); Epithelial Cells Rare HPF (Negative); Mucus Negative (Negative)
[2021-03-02 00:40] LABS: COVID-19 PCR Negative (Negative); Influenza A PCR Negative (Negative); Influenza B PCR Negative (Negative); RSV PCR Negative (Negative)
[2021-03-02] MEDS: Omnipaque 350 MG/ML 100 ML BTL IJ (00:52)
[2021-03-02] MEDS: Normal Saline Flush 10 ML SYR IVP (01:09)
[2021-03-02] MEDS: Normal Saline - Diluent 50 ML VIAL IV (01:09)
--- NOTE | 2021-03-02 02:24 | DI.VRAD_ITS ---
PROCEDURE INFORMATION: Exam: CTA Chest With Contrast Exam date and time: 03/02/2021 1:07 AM Age: 36 years old Clinical indication: Fever and shortness of breath; Patient HX: Fever, SOB, covid, dimer high, R/O pe TECHNIQUE: Imaging protocol: Computed tomographic angiography of the chest with contrast. 3D rendering (Not supervised by radiologist): MIP and/or 3D reconstructed images were created by the technologist. Radiation optimization: All CT scans at this facility use at least one of these dose optimization techniques: automated exposure control; mA and/or kV adjustment per patient size (includes targeted exams where dose is matched to clinical indication); or iterative reconstruction. Contrast material: OMNIPAQUE 350; Contrast volume: 100 ml; Contrast route: INTRAVENOUS (IV); COMPARISON: CR XR PORTABLE CHEST AP 01/19/2020 11:52 AM FINDINGS: Pulmonary arteries: No pulmonary embolism identified. Aorta: No thoracic aortic aneurysm or dissection. Thyroid: Thyroid gland partially excluded from view but grossly unremarkable through its visualized portion. Lungs: Symmetric dependent ground-glass pulmonary density with an appearance most suggestive of atelectasis. No region of pulmonary consolidation. Pleural spaces: No pleural effusion or pneumothorax. Heart: Normal sized heart. Lymph nodes: No pathologically enlarged mediastinal or hilar lymph nodes. Clustered mildly prominent left axillary lymph nodes with the largest measuring 1.1 cm x 1.5 cm on image 83 of series 6, nonspecific. Diaphragm: Elevation of the right hemidiaphragm Bones/joints: Lower ribs partially excluded from view and incompletely evaluated. Otherwise, no acute fracture seen among the bones of the chest. Soft tissues: No gross soft tissue mass or fluid collection seen in the chest wall. IMPRESSION: No active disease is seen in the chest. Dictated and Authenticated by: Mihir Tovar MD. Ordering:TATE Steve MD
[2021-03-02] MEDS: levoFLOXacin 500 MG, levoFLOXacin 250 MG 750 MG PO (02:52)
== END 2021-03-02 03:00 | disposition home or self-care (01) ==
LOC: ER 03-02 03:01
PROVIDERS: Emergency Provider Student in an Organized Health Care Education/Training Program; PCP Nurse Practitioner Family
DX: J98.11 Atelectasis (principal); N39.0 Urinary tract infection, site not specified; R06.02 Shortness of breath; R79.1 Abnormal coagulation profile; Z03.818 Encounter for observation for suspected exposure to other biological agents ruled out
CPT/HCPCS: 36415; 71275; 80053; 87040; 87077; 87637; 96361; 96374; 96375; 99285; 81003; 81015; 83605; 85025; 85379; 87086; 87186; J0131; J1885; J3490

== ENCOUNTER → 2022-08-03 01:42 | Outpatient (CLI) | payer OTHER, MEDICAID, SELFPAY ==
--- NOTE | 2022-08-03 | DI.US_ITS ---
Exam(s) US BREAST RT COMPLETE EXAM: US BREAST RT COMPLETE CLINICAL HISTORY: GALACTORRHEA NOT ASSOCIATED WITH CHILDBIRTH, SKIN LESION TECHNIQUE: Ultrasound performed using standard protocol. COMPARISON: US US BREAST LT COMPLETE from 08/03/2022 FINDINGS: Ultrasound examination of the right breast was performed utilizing whole breast screening protocol. There is a 3 millimeter in diameter simple cyst in the 3 o'clock position in the breast. No solid ma ss identified in the right breast. IMPRESSION: Negative right breast ultrasound, no evidence of malignancy. DATA REPOSITORY:
--- NOTE | 2022-08-03 | DI.US_ITS ---
Exam(s) US BREAST LT COMPLETE EXAM: US BREAST LT COMPLETE CLINICAL HISTORY: GALACTORRHEA NOT ASSOCIATED WITH CHILDBIRTH, SKIN LESION TECHNIQUE: Ultrasound performed using standard protocol. COMPARISON: No exams were available for comparison FINDINGS: Left breast ultrasound was performed utilizing whole breast screening. Patient had a skin lesion in the 12 o'clock position 7 cm from the nipple, there is a small well-circumscribed horizontally orient ed homogeneous 5 millimeter avascular nodule in the subcutaneous tissue associated with the skin lesi on. This may represent a small sebaceous cyst. No suspicious mass identified in the left breast, a couple of small cysts are seen, the largest measuring about 6 millimeters in diameter in the 5 o'cloc k position 4 cm from the nipple. IMPRESSION: No specific evidence of malignancy. Negative left breast ultrasound. DATA REPOSITORY:
--- NOTE | 2022-08-03 09:25 | DI.MAMMO_ITS ---
Exam(s) MAMMO DIAGNOSTIC BI EXAM: MAMMO DIAGNOSTIC BI CLINICAL HISTORY: GALACTORRHEA NOT ASSOCIATED WITH CHILDBIRTH, N64.3; SKIN LESION, L98.9 TECHNIQUE: Mammograms were interpreted according to the usual protocol including computer analysis w [employer] CAD system, tomosynthesis and C-view imaging. COMPARISON: FINDINGS: The breasts are of moderate density with fairly symmetrical distribution of fibroglandular tissue. N o dominant mass or clumped microcalcification is identified in either breast. Today's examination is a baseline diagnostic examination. IMPRESSION: No specific evidence of malignancy at this time. Routine screening examinations are suggested beginn ing at age 40 according to the ACS ACR guidelines BI-RADS Category 1 - Negative Breast Density - Category B - Scattered areas of fibroglandular density
== END ==
PROVIDERS: PCP Nurse Practitioner Family; Visit Provider Nurse Practitioner Family
DX: N64.3 Galactorrhea not associated with childbirth (principal); N60.01 Solitary cyst of right breast
CPT/HCPCS: 76642; 77062; 77066; G0279

== ENCOUNTER 2023-02-01 01:26 | Outpatient (CLI) | payer OTHER, MEDICAID, SELFPAY ==
[2023-02-01] MEDS: Omnipaque 350 MG/ML 500 ML BTL-Imaging package IJ (08:56)
[2023-02-01] MEDS: Normal Saline Flush 10 ML SYR IVP (08:58)
--- NOTE | 2023-02-01 08:58 | DI.CT_ITS ---
Exam(s) CT NECK W EXAM: CT NECK W INDICATION: TONSIL ASYMMETRY, J35.8. COMPARISON: No exams were available for comparison TECHNIQUE: FINDINGS: VISUALIZED PARANASAL SINUSES: Unremarkable. NASOPHARYNX: Unremarkable ORODENTAL: Unremarkable. OROPHARYNX: Right pharyngeal tonsil is larger than the left, measuring approximately 1.6 cm AP by 1.5 cm wide by 2 cm craniocaudal. It exhibits uniform density. No ring enhancement to suggest abscess. No calcifications within the tonsil. The left tonsil exhibits normal size. No nearby enlarged lym ph nodes evident. Uvula is midline. HYPOPHARYNX: Unremarkable. Valleculae and epiglottis and aryepiglottic folds appear normal. VOCAL CORDS: Unremarkable. No masses evident. Subglottic airway appears unremarkable. THYROID GLAND: Unremarkable. Normal size and no obvious nodules. SALIVARY GLANDS: Unremarkable. No significant findings in the parotid and submandibular glands. LYMPH NODES: Minimally prominent ipsilateral jugulodigastric lymph node. No gross lymphadenopathy. OTHER: VISUALIZED LUNG APICES: No significant findings. IMPRESSION: 1. The right pharyngeal tonsil is significantly larger than the left. No obvious abscess appearance nor internal calcification. Close follow-up recommended. 2. Slightly asymmetric jugulodigastric lymph node on the right side. No gross lymphadenopathy evide nt. 3. RADIATION DOSE DELIVERED: 509.32mGy.cm Total DLP DATA REPOSITORY: All CT scans at this facility are submitted to the National Radiology Data Registry (NRDR) Dose Index Registry (DIR) with the [employer] (ACR). RADIATION OPTIMIZATION: All CT scans at this facility use at least one of these dose optimization te chniques: automated exposure control; mA and/or kV adjustment per patient size (includes targeted exa ms where dose is matched to clinical indication); or iterative reconstruction.
== END 2023-02-01 01:46 ==
LOC: DI 01:26
PROVIDERS: PCP Nurse Practitioner Family; Visit Provider Physician Assistant
DX: R59.0 Localized enlarged lymph nodes (principal); J35.8 Other chronic diseases of tonsils and adenoids
CPT/HCPCS: 70491

== ENCOUNTER 2023-06-20 20:31 | Outpatient (REF) | payer OTHER, MEDICAID, SELFPAY ==
--- NOTE | 2023-06-20 12:14 | PAPFT_PTH ---
PATIENT: Juany Tristan LOC: [facility]#:[id number] AGE/SX: 38/F ROOM: RE06/20/[address]: Palmira Hartley : 1985 BED: DIS: 06/20/2023 SPEC #: [id number] RECD: 06/21/23 12:52 STATUS: MOI REGia #: [id number] LUDIN: 06/20/23 12:[address]: Palmira Hartley DEPT: [facility] Cytology RECD BY: Ella Monzon Tissues: 1 - CX/ENDOCX FOR PAP SMEARS Procedures: PAP THIN PREP/UVM Screening HPV DNA PROBE Comments: [id number]
[2023-06-20 20:52] LABS: HGB 14.7 g/dL (11.2-15.7); MCH 29.2 pg (27.0-33.0); MCHC 33.4 % (32.0-36.0); MCV 87 fL (80-95); MPV 10.4 fL (8.0-11.0); Platelet Count 421 10^3/uL (130-400); RBC 5.04 10^6/uL (3.93-5.22); RDW 12.7 % (11.7-14.6); RDW-SD 40.5 fL; WBC 9.63 10^3/uL (4.4-10.8)
[2023-06-20 21:27] LABS: ALT 24 U/L (14-59); AST 17 U/L (15-37); Albumin 4.1 g/dL (3.4-5.0); Alkaline Phosphatase 91 U/L (46-116); Anion Gap 9.7 mmol/L (3-11); BUN 5 mg/dL (7-18); Bilirubin, Total 0.5 mg/dL (0.2-1.0); CO2 27.3 mmol/L (21.0-32.0); CREATININE 0.8 mg/dL (0.55-1.02); Calcium 9.3 mg/dL (8.5-10.1); Calculated LDL 102 mg/dL (<100); Chloride 100 mmol/L (98-107); Cholesterol 179 mg/dL (<200); Estimated GFR 96.06 (mL/min/1.73m2); Ferritin 143 ng/mL (8-252); Glucose 81 mg/dL (74-106); HDL Cholesterol 61 mg/dL (40-60); Potassium 3.6 mmol/L (3.5-5.1); Sodium 137 mmol/L (136-145); TSH (W/Ref FT4) 1.85 uIU/mL (0.36-3.74); Total Protein 7.5 g/dL (6.4-8.2); Triglyceride 80 mg/dL (<150)
[2023-06-20 22:27] LABS: Iron 90 ug/dL (50-170)
== END 2023-06-20 20:32 | disposition home or self-care (01) ==
LOC: NCHCN 20:31
PROVIDERS: PCP Nurse Practitioner Family; Visit Provider Nurse Practitioner Family
DX: Z00.00 Encounter for general adult medical examination without abnormal findings (principal)
CPT/HCPCS: 80053; 80061; 85027; 88142; 82728; 83540; 84443; 87624

== ENCOUNTER 2023-11-24 20:59 | Outpatient (REF) | payer OTHER, MEDICAID, SELFPAY | END 2023-11-24 21:00 | disposition home or self-care (01) | LOC: NCHCN 20:59 | PROVIDERS: PCP Nurse Practitioner Family; Visit Provider Family Medicine | DX: N39.0 Urinary tract infection, site not specified (principal) | CPT/HCPCS: 87086 ==

== ENCOUNTER → 2023-12-22 07:11 | Outpatient (CLI) | payer OTHER, MEDICAID, SELFPAY ==
--- NOTE | 2023-12-22 12:45 | DI.RAD_ITS ---
Exam(s) XR CHEST 2V PA LATERAL EXAM: XR CHEST 2V PA LATERAL CLINICAL HISTORY: R05.9cough, R06.02 sob TECHNIQUE: 2D digital imaging was performed of the chest. Two images were obtained. PA and lateral views were obtained. COMPARISON: CR,XR XR PORTABLE CHEST AP from 01/19/2020 FINDINGS: MEDIASTINUM: Normal. HEART: Normal. PULMONARY VASCULATURE: Normal. LUNGS: Clear. PLEURAL SPACE: No pleural effusion or pneumothorax. BONE:Within normal limits for the patient's age. OTHER FINDINGS:Normal. IMPRESSION: No acute pulmonary findings. DATA REPOSITORY: RADIATION DOSE DELIVERED:
== END ==
PROVIDERS: PCP Nurse Practitioner Family; Visit Provider Nurse Practitioner Acute Care
DX: R05.9 Cough, unspecified (principal); R06.02 Shortness of breath
CPT/HCPCS: 71046

== ENCOUNTER 2024-10-25 22:01 | Outpatient (REF) | payer OTHER, SELFPAY ==
[2024-10-25 22:03] LABS: HCT 45.1 % (36.0-46.0); HGB 15.1 g/dL (11.2-15.7); MCH 29.8 pg (27.0-33.0); MCHC 33.5 % (32.0-36.0); MCV 89 fL (80-95); MPV 10.1 fL (8.0-11.0); Platelet Count 371 10^3/uL (130-400); RBC 5.06 10^6/uL (3.93-5.22); RDW 12.1 % (11.7-14.6); RDW-SD 39.7 fL; WBC 7.07 10^3/uL (4.4-10.8)
--- OUTSIDE RECORDS SUMMARY | 2024-10-25 22:03 | XMS_ITS | Clinical Summary ---
Author Organization [facility] Address [address] [place] [address] Care Team Providers Care Visual Merchandising Coordinator Name Role Phone Juany Landon Primary Care Provider Un available Social History Tobacco Use Types Packs/Day Years Used Date Smoking Tobacco: Never Assessed Interpersonal Safety Answer Date Record ed Physically Hurt Never 05/24/2020 Verbally Threaten Not on file 05/24/2020 Comments Unknown Sex and Gender Information Value Date Recorded Sex Assigned at Not on file Legal Sex Female 18:53 EST Gender Identity Not on file Sexual Orientation Not on file Plan of Treatment Health Maintenance Due Date Last Done Comments Hepatitis C Screen 1985 Hepatitis B Vaccine (1 of 3 - 19+ 3-dose series) 01/23 COVID-19 Vaccine ( season) 2024 Care Teams Visual Merchandising Coordinator Relationship Specialty Start Date End Date Juany Landon ARNP [address] [address] PCP - General 06/28/19
--- OUTSIDE RECORDS SUMMARY | 2024-10-25 22:03 | XMS_ITS | Referral Summary ---
Author Organization [facility] Address [address] [place] [address] Care Team Providers Care Director Of Field Coordination Name Role Phone Juany Landon Primary Care [...] Orientation Not on file Plan of Treatment Not on file Care Teams Director Of Field Coordination Relationship Specialty Start Date End Date Juany Landon ARNP [address] [id number] PCP - General 06/28/19
--- OUTSIDE RECORDS SUMMARY | 2024-10-25 22:04 | XMS_ITS | Encounter Summary ---
Author Organization [facility] [place] [address] [place] [address] Care Team Providers Care Marine Engineering Professor Name Role Phone Palmira Hartley APRN Primary Care Provider [phone] Encounter Details Date Type Department Care Team (Latest Contact Info) Description 08/07/2023 Travel Social History Tobacco Use Types Packs/Day Years Used Date Smoking Tobacco: Former Cigarettes e-Cigarettes Smokeless Tobacco: Never Alcohol Use Standard Drinks/Week Comments Yes 2 (1 standard drink = 0.6 oz pur e alcohol) twisted tea x2/daily DH IPV Inpatient Questions Answer Date Recorded Does Anyone Try to Keep You From Having Contact with Others or Doing Things Outside Your Home? no 07/14/2023 Feels Threatened by Someone no 06/24 Feels Unsafe at Home or Work/School no 07/14/2023 Physical Signs of Abuse Present no 07/14/2023 Sex and Gender Information Value Date Recorded Sex Assigned at Not on file Gender Identity Not on file Sexual Orientation Not on file documented as of this encounter Plan of Treatment Not on file documented as of this encounter Visit Diagnoses Not on filedocumented in this encounter Care Teams Marine Engineering Professor Relationship Specialty Start Date End Date Palmira Hartley APRN [address] [place] [address] PCP - General Family Medicine 02/25/22 documented as of this encounter
--- OUTSIDE RECORDS SUMMARY | 2024-10-25 22:04 | XMS_ITS | Encounter Summary ---
Author Organization [facility] Address [address] [place] [address] Care Team Providers Care Adult Family Home Program Manager Name Role Phone Unknown, Provider Primary Care Provider Juany Reeves Primary Care Provider Un available Encounter Details Date Type Department Care Team (Late st Contact Info) Description 10/25/2016 Historical Results Only [facility] [place] [address] [place] [phone] Mitzi Wiley MD [address] [place] [address]-, [address] [place] [address] Social History Tobacco Use Types Packs/Day Years Used Date Smoking Tobacco: Never Assessed Comments Unknown Sex and Gender Information Value Date Recorded Sex Assigned at Not on file Legal Sex Female 18:53 EST Gender Identity Not on file Sexual Orientation Not on file documented as of this encounter Plan of Treatment Not on file documented as of this encounter Procedures Procedure Name Priority Date/Time Associated Diagnosis Comments GROUP B STREP PCR Routine 10/25/2016 8:10 EST documented in this encounter Results * GROUP B STREP PCR (10/25/2016 8:10 EST) Group B Strep PCR Group B Strep Not-Detect ed by PCR 10/26/2016 14:24 EST [facility] Group B Strep PCR 10/26/2016 14:24 EST [facility] Group B Strep PCR Not Done 10/26/2016 14:24 EST [facility] 10/25/2016 8:10 EST 10/25/2016 8:50 EST Narrative [facility] - 10/26/2016 14:24 EST Does PT Have a Latex Allergy? NO us Mitzi Wiley MD MICROBIOLOGY - GENERAL ORDERA BLES Final Result [facility] documented in this encounter Visit Diagnoses Not on filedocumented in this encounter Care Teams Adult Family Home Program Manager Relationship Specialty Start Date End Date Unknown, Provider, PCP - General 05/20/11 06/27/19 Juany Landon ARNP [address] [address] PCP - General 06/28/19 documented as of this encounter
--- OUTSIDE RECORDS SUMMARY | 2024-10-25 22:04 | XMS_ITS | Encounter Summary ---
Author Organization [facility] Address [address] [place] [address] Care Team Providers Care Manager Insurance Name Role Phone Unknown, Provider Primary Care Provider Adilene jacob Encounter Details Date Type Department Care Team (Late st Contact Info) Description 05/19/2011 Results Only [facility] Laboratory Services - [facility] ([facility]) [address] [place], [place] [address] Erik Billings, [facility] [address] [place] [phone] Social History Tobacco Use Types Packs/Day Years [...] Procedure Name Priority Date/Time Associated Diagnosis Comments PAP TEST- RESULT ONLY Routine 05/19/2011 0:00 EDT documented in this encounter Results * PAP TEST- RESULT ONLY (05/19/2011 0:00 EDT) Pathology Report: CYTOPATHOLOGY REPORT ? Reports generated via electronic interface contain original data; ? however they are lacking the format of the original report. ? Caution should be taken when reading/interpreti ng unformatted reports. ? Name: ? SHAYNA GOODE ? Accession #: ? [id number] ? : ? 1985 (Age: 26) ??F ?Collect Date: ? 05/19/2011 ? Location: ? [facility] ? Receive Date: ? 05/20/2011 ? Provider: ?ERIK DEVON LABOR TRAINING MANAGER ? Copy to: ?JUAN GREENFIELD MANUFACTURING QUALITY ENGINEER ? Specimen/Source: ?Pap Test, Cervix/Endocervix, ThinPrep Imaging System ? with manual evaluation ? Last Menstrual Period: ? 07/21/11 ? SPECIMEN ADEQUACY ? Satisfactory for Evaluation ? - transformation zone component present ? GENERAL CATEGORIZATION ? Negative for Intraepithelial Lesion or Malignancy ? INTERPRETATION ? Shift in gerry present suggestive of bacterial vaginosis. ? Document reviewed and electronically signed by: ? Lynan Mandeep, CT(ASCP) ? Report Date: ??05/24/2011 13:48 ? End of Report ? ALOK PEÑALOZA 05/19/2011 05/20/2011 us Erik Billings LABOR TRAINING MANAGER PATHOLOGY ORDERABLES Final R esult ALOK PEÑALOZA [address] [place] [address] documented in this encounter Visit Diagnoses Not on filedocumented in this encounter Care Teams Manager Insurance Relationship Specialty Start Date End Date Unknown, Provider, PCP - General 05/20/11 06/27/19 documented as of this encounter
--- OUTSIDE RECORDS SUMMARY | 2024-10-25 22:04 | XMS_ITS | Encounter Summary ---
Author Organization [facility] Address [address] [place] [address] Care Team Providers Care Knocker Out Name Role Phone Unknown, Provider Primary Care Provider Unava ilable Encounter Details Date Type Department Care Team (Latest Contact Info) Description 04/29/2016 7:48 EDT - 04/29/2016 23:59 EDT Hospital Encounter [facility] [address] [place] [address] Unknown, Provider, Discharge Disposition: Home or Self Care Social History Tobacco Use Types Packs/Day Years Used Date Smoking Tobacco: Never Assessed Comments Unknown Sex and Gender Information Value Date Recorded Sex Assigned at Not on file Legal Sex Female 18:53 EST Gender Identity Not on file Sexual Orientation Not on file documented as of this encounter Discharge Disposition Disposition Code Departure Means Destination Home or Self Correction documented in this encounter Plan of Treatment Not on file documented as of this encounter Visit Diagnoses Not on filedocumented in this encounter Care Teams Knocker Out Relationship Specialty Start Date End Date Unknown, Provider, PCP - General 05/20/11 06/27/19 documented as of this encounter
--- OUTSIDE RECORDS SUMMARY | 2024-10-25 22:04 | XMS_ITS | Encounter Summary ---
Author Organization [facility] Address [address] [place] [address] Care Team Providers Care Paint Dipper Name Role Phone Unknown, Provider Primary Care Provider Juany Reeves Primary Care Provider Un available Encounter Details Date Type Department Care Team (Late st Contact Info) Description 10/07/2016 Historical Results Only [facility] Lab - Main [address] [id number] Barbra Regan MD [address] [facility] [address] [place] [address] Social History Tobacco Use Types Packs/Day Years [...] Procedure Name Priority Date/Time Associated Diagnosis Comments CREATININE, URINE RANDOM Routine 10/07/2016 11:50 EST documented in this encounter Results * CREATININE, URINE RANDOM (10/07/2016 11:50 EST) URINE CREATININE RANDOM - [facility] 78.60 30 - 125 mg/dL 10/07/2016 12:26 EST [facility] 10/07/2016 11:5 0 EST 10/07/2016 12:00 EST Narrative [facility] - 10/07/2016 12:26 EST Does PT Have a Latex Allergy? NO us Barbra Regan MD URINALYSIS ORDERABLES Final Re sult [facility] documented in this encounter Visit Diagnoses Not on filedocumented in this encounter Care Teams Paint Dipper Relationship Specialty Start Date End Date Unknown, Provider, PCP - General 05/20/11 06/27/19 Juany Landon ARNP [address] [address] PCP - General 06/28/19 documented as of this encounter
--- OUTSIDE RECORDS SUMMARY | 2024-10-25 22:04 | XMS_ITS | Encounter Summary ---
Author Organization [facility] [address] Care Team Providers Care Conciliator Name Role Phone Naeem Palmira GOOD Primary Care Provider [phone] Encounter Details Date Type Department Care Team (Late st Contact Info) Description 07/14/2023 Orders Only [place] [address] Isabelle Salmon MD [facility] [place] [address] Social History Tobacco Use Types Packs/Day Years Used Date Smoking Tobacco: Former Cigarettes e-Cigarettes Smokeless Tobacco: Never Alcohol Use Standard Drinks/Week Comments Yes 2 (1 standard drink = 0.6 oz pur e alcohol) twisted tea x2/daily [facility] Inpatient Questions Answer Date Recorded Does Anyone [...] on filedocumented in this encounter Care Teams Conciliator Relationship Specialty Start Date End Date Palmira Hartley APRN [address] [place] [address] PCP - General Family Medicine 02/25/22 documented as of this encounter
--- OUTSIDE RECORDS SUMMARY | 2024-10-25 22:04 | XMS_ITS | Encounter Summary ---
Author Organization [facility] Address [address] [place] [address] Care Team Providers Care Manufacturing Process Technician Name Role Phone Unknown, Provider Primary Care Provider Juany Reeves Primary Care Provider Un available Encounter Details Date Type Department Care Team (Late st Contact Info) Description 11/07/[address] [facility] - Main [place] [address] [place] [address] [phone] Mitzi Wiley MD [address] [place] [address], [address] [place] [address] Social History Tobacco Use Types [...] Procedure Name Priority Date/Time Associated Diagnosis Comments COMPLETE BLOOD COUNT WITH DIFFERENTIAL (AUTO) Routine 11/07/2016 18:21 EST HEPATITIS B SURFACE ANTIGEN Routine 11/07/2016 18:21 EST BLOOD BANK HOLD Routine 11/07/2016 18:21 EST documented in this encounter Results * HEPATITIS B SURFACE ANTIGEN (11/07/2016 18:21 EST) Hep B Surface Ag Negative 11/07/2016 20:06 [facility] Comment:Expected Values: Neg ative. 11/07/2016 18:2 1 EST 11/07/2016 19:27 EST us Mitzi Wiley MD CHEMISTRY & BLOOD GAS ORDERAB LES Final Result [facility] * (ABNORMAL) COMPLETE BLOOD COUNT WITH DIFFERENTIAL (AUTO) (11/07/2016 18:21 EST) ABSOLUTE NEUTROPHIL COUN - [facility] 8.28(H) 1.7 - 7.0 10e3/ul 11/07/2016 19:35 [facility] BASO # - [facility] 0.02 0.0 - 0.3 10e3/uL 11/07/2016 19:35 [facility] BASO % - [facility] 0 0 - 2 % 11/07/2016 19:35 [facility] EOS # - [facility] 0.13 0.05 - 0.5 10e3/uL 11/07/2016 19:35 [facility] EOS % - [facility] 1 0 - 5 % 11/07/2016 19:35 [facility] GRAN % - [facility] 68 40 - 80 % 11/07/2016 19:35 [facility] HEMATOCRIT - [facility] 32.9(L) 34.0 - 47.0 % 11/07/2016 19:35 [facility] HEMOGLOBIN - [facility] 11.2 11.2 - 15.7 g/dl 11/07/2016 19:35 [facility] IG# - [facility] 0.08(H) 0 - 0.07 10e3/uL 11/07/2016 19:35 [facility] IG% - [facility] 0.7 0 - 0.9 % 11/07/2016 19:35 [facility] LYMPH # - [facility] 3.03(H) 0.9 - 2.9 10e3/uL 11/07/2016 19:35 [facility] LYMPH% - [facility] 25 20 - 40 % 11/07/2016 19:35 [facility] MEAN CORPUSCULAR HGB - [facility] 29.3 26 - 34 pg 11/07/2016 19:35 [facility] MEAN CORPUSCULAR HGB CONC - [facility] 34.0 31 - 36 g/dL 11/07/2016 19:35 [facility] MEAN CELL VOLUME - [facility] 86.1 77 - 100 fl 11/07/2016 19:35 [facility] MONO # - [facility] 0.64 0.3 - 0.9 10e3/uL 11/07/2016 19:35 [facility] MONO% - [facility] 5 0 - 12 % 11/07/2016 19:35 [facility] PLATELET COUNT 296 150 - 400 10e3/ul 11/07/2016 19:35 [facility] RED BLOOD COUNT - [facility] 3.82 3.8 - 5.2 10e6/ul 11/07/2016 19:35 [facility] RED CELL DISTRI WIDTH - [facility] 13.4 11.8 - 15.6 % 11/07/2016 19:35 [facility] WHITE BLOOD COUNT - [facility] 12.2(H) 3.5 - 10.5 10e3/ul 11/07/2016 19:35 [facility] 11/07/2016 18:2 1 EST 11/07/2016 19:27 EST Mitzi Wiley MD HEMATOLOGY & PF4 ORDERABLES F inal Result [facility] * BLOOD BANK HOLD (CLOT) (11/07/2016 18:21 EST) CLOT TO HOLD - [facility] See Note [facility] Comment: CLOT TO HOLD WILL IN 48 HOURS FROM DATE ?AND TIME OF COLLECTION ?BLOOD BANK HISTORY HAS BEEN CHECKED 11/07/2016 18:2 1 EST 11/07/2016 19:27 EST Mitzi Wiley MD BLOOD BANK TESTS Final Result [facility] documented in this encounter Visit Diagnoses Not on filedocumented in this encounter Care Teams Manufacturing Process Technician Relationship Specialty Start Date End Date Unknown, Provider, PCP - General 05/20/11 06/27/19 Juany Landon ARNP [address] [address] PCP - General 06/28/19 documented as of this encounter
--- OUTSIDE RECORDS SUMMARY | 2024-10-25 22:04 | XMS_ITS | Encounter Summary ---
Author Organization [facility] [place] [address] Care Team Providers Care Electric Bath Attendant Name Role Phone Naeem Palmira GOOD Primary Care Provider [phone] Encounter Details Date Type Department Care Team (Late st Contact Info) Description 07/19/2023 Orders Only [place] [address] Isabelle Salmon MD [facility] [place] [address] Social History Tobacco Use Types Packs/Day Years Used Date Smoking Tobacco: Former Cigarettes e-Cigarettes Smokeless Tobacco: Never Alcohol Use Standard Drinks/Week Comments Yes 2 (1 standard drink = 0.6 oz pur e alcohol) twisted tea x2/daily [facility] Inpatient Questions Answer Date Recorded Does Anyone [...] on filedocumented in this encounter Care Teams Electric Bath Attendant Relationship Specialty Start Date End Date Palmira Hartley APRN [address] [place] [address] PCP - General Family Medicine 02/25/22 documented as of this encounter
--- OUTSIDE RECORDS SUMMARY | 2024-10-25 22:04 | XMS_ITS | Encounter Summary ---
Author Organization [facility] Address [address] [place] [address] Care Team Providers Care Relocation Coordinator Name Role Phone Unknown, Provider Primary Care Provider Juany Reeves Primary Care Provider Un available Encounter Details Date Type Department Care Team (Late st Contact Info) Description 11/04/2016 Historical Results Only [facility] - [facility] Lab - Main [place] [address] [place] [address] Queta Tiwari MD [address] [place] [address]-, [address] [place] [address] Social History Tobacco Use Types [...] COMPLETE BLOOD COUNT WITH DIFFERENTIAL (AUTO) Routine 11/04/2016 8:54 EST URIC ACID Routine 11/04/2016 8:54 EST COMPREHENSIVE METABOLIC PANEL (CMP) Routine 11/04/2016 8:54 EST PROTEIN/CREATININE RATIO, URINE Routine 11/04/2016 8:45 EST documented in this encounter Results * URIC ACID (11/04/2016 8:54 EST) Pathologist [facility] URIC ACID - [facility] 3.2 2.6 - 7.2 mg/dl 11/04/2016 9:30 [facility] 11/04/2016 8:54 EST 11/04/2016 9:07 EST Narrative [facility] - 11/04/2016 9:30 EST Does PT Have a Latex Allergy? NO us Queta Tiwari MD CHEMISTRY & BLOOD GAS ORDERAB LES Final Result [facility] * (ABNORMAL) COMPREHENSIVE METABOLIC PANEL (CMP) (11/04/2016 8:54 EST) [facility] Albumin % 2.5(L) 3.4 - 5.0 g/dL 11/04/2016 9:30 [facility] ALKALINE PHOSPHATASE - [facility] 116 41 - 126 U/L 11/04/2016 9:30 [facility] BILIRUBIN TOTAL 0.2 0.0 - 1.0 mg/dL 11/04/2016 9:30 [facility] BUN - [facility] 5(L) 7 - 18 mg/dL 11/04/2016 9:30 [facility] CALCIUM - [facility] 8.8 8.5 - 10.1 mg/dL 11/04/2016 9:30 [facility] Chloride 106 98 - 107 mEq/L 11/04/2016 9:30 [facility] CO2 Total 22 21 - 32 mEq/L 11/04/2016 9:30 [facility] CREATININE 0.57 0.5 - 1.3 mg/dL 11/04/2016 9:30 [facility] eGFR >60 11/04/2016 9:30 [facility] Comment: Chronic renal impairment is defined as GFR <60 Multiply result by 1.210 for patients. eGFR calculated using the IDMS-traceable MDRD Study Equation. ??(effective 08/25/2014) Anion Gap 10 5 - 15 11/04/2016 9:30 [facility] GLUCOSE - [facility] 98 70 - 100 mg/dL 11/04/2016 9:30 [facility] Potassium 3.7 3.5 - 5.0 mEq/L 11/04/2016 9:30 [facility] Sodium 138 135 - 145 mEq/L 11/04/2016 9:30 [facility] TOTAL PROTEIN - [facility] 6.0(L) 6.4 - 8.2 gm/dl 11/04/2016 9:30 [facility] SGOT/AST - [facility] 13 10 - 37 U/L 11/04/2016 9:30 [facility] SGPT/ALT - [facility] 13 12 - 78 U/L 11/04/2016 9:30 [facility] 11/04/2016 8:54 EST 11/04/2016 9:07 EST [facility] - 11/04/2016 9:30 EST Does PT Have a Latex Allergy? NO us Queta Tiwari MD CHEMISTRY & BLOOD GAS ORDERAB LES Final Result [facility] * (ABNORMAL) COMPLETE BLOOD COUNT WITH DIFFERENTIAL (AUTO) (11/04/2016 8:54 EST) ABSOLUTE NEUTROPHIL COUN - [facility] 9.45(H) 1.7 - 7.0 10e3/ul 11/04/2016 9:15 [facility] BASO # - [facility] 0.02 0.0 - 0.3 10e3/uL 11/04/2016 9:15 [facility] BASO % - [facility] 0 0 - 2 % 11/04/2016 9:15 [facility] EOS # - [facility] 0.15 0.05 - 0.5 10e3/uL 11/04/2016 9:15 [facility] EOS % - [facility] 1 0 - 5 % 11/04/2016 9:15 [facility] GRAN % - [facility] 70 40 - 80 % 11/04/2016 9:15 [facility] HEMATOCRIT - [facility] 34.6 34.0 - 47.0 % 11/04/2016 9:15 [facility] HEMOGLOBIN - [facility] 12.1 11.2 - 15.7 g/dl 11/04/2016 9:15 [facility] IG# - [facility] 0.09(H) 0 - 0.07 10e3/uL 11/04/2016 9:15 [facility] IG% - [facility] 0.7 0 - 0.9 % 11/04/2016 9:15 [facility] LYMPH # - [facility] 2.83 0.9 - 2.9 10e3/uL 11/04/2016 9:15 [facility] LYMPH% - [facility] 21 20 - 40 % 11/04/2016 9:15 [facility] MEAN CORPUSCULAR HGB - [facility] 30.0 26 - 34 pg 11/04/2016 9:15 [facility] MEAN CORPUSCULAR HGB CONC - [facility] 35.0 31 - 36 g/dL 11/04/2016 9:15 [facility] MEAN CELL VOLUME - [facility] 85.6 77 - 100 fl 11/04/2016 9:15 [facility] MONO # - [facility] 1.03(H) 0.3 - 0.9 10e3/uL 11/04/2016 9:15 [facility] MONO% - [facility] 8 0 - 12 % 11/04/2016 9:15 [facility] PLATELET COUNT 311 150 - 400 10e3/ul 11/04/2016 9:15 [facility] RED BLOOD COUNT - [facility] 4.04 3.8 - 5.2 10e6/ul 11/04/2016 9:15 [facility] RED CELL DISTRI WIDTH - [facility] 13.3 11.8 - 15.6 % 11/04/2016 9:15 [facility] WHITE BLOOD COUNT - [facility] 13.6(H) 3.5 - 10.5 10e3/ul 11/04/2016 9:15 [facility] 11/04/2016 8:54 EST 11/04/2016 9:08 [facility] - 11/04/2016 9:15 EST Does PT Have a Latex Allergy? NO Queta Tiwari MD HEMATOLOGY & PF4 ORDERABLES F inal Result [facility] * PROTEIN/CREATININE RATIO, URINE (11/04/2016 8:45 EST) URINE PROTEIN: CREAT RATIO - [facility] 0.139 0 - 0.2 11/04/2016 10:41 EST [facility] 11/04/2016 8:45 EST 11/04/2016 9:12 EST Narrative [facility] - 11/04/2016 10:41 EST Does PT Have a Latex Allergy? NO Queta Tiwari MD URINALYSIS ORDERABLES Final R esult Performing Organization Address City/[facility]/ZIP Co de Phone Number [facility] documented in this encounter Visit Diagnoses Not on filedocumented in this encounter Care Teams Relocation Coordinator Relationship Specialty Start Date End Date Unknown, Provider, PCP - General 05/20/11 06/27/19 Juany Landon ARNP [address] [address] PCP - General 06/28/19 documented as of this encounter
--- OUTSIDE RECORDS SUMMARY | 2024-10-25 22:04 | XMS_ITS | Encounter Summary ---
[place] [address] Care Team Providers Care Party Plan Sales Unit Advisor Name Role Phone Palmira Hartley APRN Primary Care Provider [phone] Encounter Details Date Type Department Care Team (Late st Contact Info) Description 07/14/2023 [place] [phone] Katia Ordaz RN Social History Tobacco Use Types Packs/Day Years Used Date Smoking Tobacco: Former Cigarettes e-Cigarettes Smokeless Tobacco: Never Alcohol Use Standard Drinks/Week Comments Yes 2 (1 standard drink = 0.6 oz pur e alcohol) twisted tea x2/daily [facility] Inpatient Questions Answer Date Recorded [...] on file documented as of this encounter Miscellaneous Notes * Telephone Encounter - Katia Ordaz RN - 07/14/2023 4:59 PM EDTSummary: RN called patient to alert to prescription sent to pharmacy. RN called patient to alert to prescription ordered. Patient to greens picker at pharmacy. documented in this encounter Plan of Treatment Not on file documented as of this encounter Visit Diagnoses Not on filedocumented in this encounter Care Teams Party Plan Sales Unit Advisor Relationship Specialty Start Date End Date Palmira Hartley APRN [address] [place] [address] PCP - General Family Medicine 02/25/22 documented as of this encounter
--- OUTSIDE RECORDS SUMMARY | 2024-10-25 22:04 | XMS_ITS | Encounter Summary ---
Author Organization [facility] Address [address] [place] [address] Care Team Providers Care Psych Nurse Name Role Phone Unknown, Provider Primary Care Provider Juany Reeves Primary Care Provider Un available Encounter Details Date Type Department Care Team (Late st Contact Info) Description 10/14/2016 Historical Results Only [facility] Lab - Main [address] [address] Mitzi Wiley MD [address] [place] [address], [address] [place] [address] Social History Tobacco Use Types [...] Procedure Name Priority Date/Time Associated Diagnosis Comments PROTEIN, TOTAL, RANDOM, URINE Routine 10/14/2016 10:59 EST documented in this encounter Results * PROTEIN, TOTAL, RANDOM, URINE (10/14/2016 10:59 EST) URINE PROTEIN RANDOM - [facility] 10.0 0 - 11.9 mg/DL 10/14/2016 14:55 EST [facility] 10/14/2016 10:5 9 EST 10/14/2016 14:11 EST us Mitzi Wiley MD URINALYSIS ORDERABLES Final R esult [facility] documented in this encounter Visit Diagnoses Not on filedocumented in this encounter Care Teams Psych Nurse Relationship Specialty Start Date End Date Unknown, Provider, PCP - General 05/20/11 06/27/19 Juany Landon ARNP [address] [address] PCP - General 06/28/19 documented as of this encounter
--- OUTSIDE RECORDS SUMMARY | 2024-10-25 22:04 | XMS_ITS | Encounter Summary ---
Author Organization [facility] Address [address] [place] [address] Care Team Providers Care Reproduction Production Manager Name Role Phone Unknown, Provider Primary Care Provider Unava ilable Encounter Details Date Type Department Care Team (Late st Contact Info) Description 11/12/2013 Results Only [facility] Laboratory Services - [facility] ([facility] [address], [place] [address] Ita Billings, [facility] [address] [place] [address] [phone] Social History Tobacco Use Types Packs/Day Years [...] Diagnosis Comments PAP TEST- RESULT ONLY Routine 11/12/2013 0:00 EST documented in this encounter Results * PAP TEST- RESULT ONLY (11/12/2013 0:00 EST) Pathology Report: CYTOPATHOLOGY REPORT Reports generated via electronic interface contain original data; however they are lacking the format of the original report. Caution should be taken when reading/interpreti ng unformatted reports. Name: ? SHAYNA GOODE ? Accession #: ? [id number] : ? 1985 (Age: 28) ??F ?Collect Date: ? 11/12/2013 Location: ? [facility] ? Receive Date: ? 11/13/2013 Provider: ?ITA BILLINGS TAG MAKER Copy to: ?NATALIA LARA DO ? Specimen/Source: ?Pap Test, Cervix/Endocervix, ThinPrep Imaging System with manual evaluation Last Menstrual Period: ? 10/11/13 with SAB ? SPECIMEN ADEQUACY ? Satisfactory for Evaluation - transformation zone component present GENERAL CATEGORIZATION ? Negative for Intraepithelial Lesion or Malignancy ? Document reviewed and electronically signed by: ? CARA Dawkins(ASCP) ? Report Date: ??11/15/2013 12:50 End of Report [facility] PE[facility] 11/12/2013 11/13/2013 Ita Billings TAG MAKER PATHOLOGY ORDERABLES Final R esult [facility] [address] [place] [address] documented in this encounter Visit Diagnoses Not on filedocumented in this encounter Care Teams Reproduction Production Manager Relationship Specialty Start Date End Date Unknown, Provider, PCP - General 05/20/11 06/27/19 documented as of this encounter
--- OUTSIDE RECORDS SUMMARY | 2024-10-25 22:04 | XMS_ITS | Encounter Summary ---
[place] [address] Care Team Providers Care Hydroelectric Plant Operator Name Role Phone Palmira Hartley APRN Primary Care Provider [phone] Reason for Visit * Auth/Cert (Routine) Specialty Diagnoses / Procedures Referred By Gregg barraza Referred To Contact Diagnoses Tonsil asymmetry tonsil asymmetry Procedures PRO REMOVAL OF TONSILS, 12+ Y/O TONSILLECTOMY AGE 12 AND OVER (WRVU 3.45) Isabelle Salmon MD [facility] [place] [address] [facility] Referral ID Status Reason Start Date Expiration Date Visits Re quested Visits Authorized [id number] 1 1 Encounter Details Date Type Department Care Team (Late st Contact Info) Description 07/14/2023 10:25 AM EDT Anesthesia Event [facility] [place] [phone] Elle Garcia MD [facility] [place] [address] Anesthesia Record Procedure Summary Procedure Name Responsible Anesthesiologist Anesthesia Start Time Anesthesia Stop Time TONSILLECTOMY AGE 12 AND OVER (WRVU 3.45) (Mouth) Elle Garcia MD 07/14/23 1025 07/14/23 1104 Events Date Time Event Comment 07/14/2023 1025 1025 AN Verify 1025 Start 1027 An Start Data 1030 An Induction 1034 An Intubation 1037 Anesthesia Ready 1101 Extubation/LMA Out 1101 an stop data 1101 Recovery or ICU Handoff Jennifer ent care was transferred to the destination unit staff after review of the patient's medical history, current anesthetic/surgical status and plan, according to the Provider Handoff Checklist. 1104 Stop Meds Name Total Midazolam 2 mg fentaNYL 100 mcg IV Lidocaine 70 mg Propofol 250 mg Propofol INF 277.16 mg Dexmedetomidine 4 mcg Dexamethasone 8 mg Ondansetron 8 mg Succinylcholine 100 mg Labetalol 10 mg lactated ringers infusion 600 mL * Agents Name O2 * Blood No blood administrations on file. Lines, Drains, and Airways Type Details Placement Removal Incision 07/14/23; Bilateral; throat 07/14/23 0000 by Astrid Villa, VANESSA (RETIRED) Peripheral IV Line - Single Lumen 07/14/23; 0951; metacarpal vein (top of hand), right; [id number] catheter system; Anatomical Landmarks, Transillumination; 22 gauge, 3/4 in length; cavalier; distraction, intradermal injection, tolerated well; 07/14/23; 1148 07/14/23 0951 by Josseline Mc RN 07/14/23 1148 by Marleny Granado RN ETT Mask Ventilation: Ea sy (1); ETT Type: Cuffed; ETT Size: 6.5 mm; Mac Blade: 3; Attempts: 1; Secured at Teeth: 19 cm; Inserted by: elle garcia MD; Removal Date: 07/14/23; Removal Time: 1101 07/14/23 1030 by Lela Ivey CRNA 07/14/23 1101 by Elle Garcia MD documented in this encounter Social History Tobacco Use Types Packs/Day Years [...] on file documented as of this encounter OR Notes * Anesthesia Postprocedure Evaluation - Elle Garcia MD - 07/14/2023 11:39 AM EDT Department of Anesthesiology Post-procedure Note Patient: Juany Tristan Procedure Summary Date: 07/14/23 Room / Location: [address] [facility] Anesthesia Start: 1025 Anesthesia Stop: 1104 Procedure: TONSILLECTOMY AGE 12 AND OVER (WRVU 3.45) (Mouth) Diagnosis: Tonsil asymmetry (tonsil asymmetry) Surgeons: Isabelle Salmon MD Responsible Provider: Elle Garcia MD Anesthesia Type: general ASA Status: 2 All Anesthesia Providers: Anesthesiologist: Elle Garcia MD COMMUNITY RELATIONS LIAISON: Lela Ivey CRNA Vitals Value Taken Time BP 128/87 07/14/23 1130 Temp Pulse 73 07/14/23 1139 Resp 18 07/14/23 1115 SpO2 95 % 07/14/23 1139 Pain Level Vitals shown include unvalidated device data. Patient Location: PACU/[facility] Level of Consciousness: Awake and Alert Pain Management: Satisfactory Analgesia PONV: None Cardiovascular Status: At Baseline and Hemodynamically Stable Respiratory Status: At Baseline and Room Air Postoperative Fluid Status: Intravascular EUvolemia Possible Anesthetic Complications: NONE apparent at time of evaluation Final Primary Anesthesia Type: General (The anesthetic type performed was the same as planned.) Comments: ELLE GARCIA MD * Anesthesia Preprocedure Evaluation - Elle Garcia MD - 07/14/2023 9:56 AM EDT Pre-Anesthesia Evaluation for: Juany Tristan a 38 y.o. female. Procedure(s): TONSILLECTOMY AGE 12 AND OVER (WRVU 3.45) Patient Active Problem List Diagnosis Date Noted ??? Alopecia areata 11/13/2012 History reviewed. No pertinent past medical history. History reviewed. No pertinent surgical history. Social History Tobacco Use ??? Smoking status: Former Types: Cigarettes, e-Cigarettes ??? Smokeless tobacco: Never Substance Use Topics ??? Alcohol use: Yes Alcohol/week: 2.0 standard drinks Types: 2 Drinks containing 0.5 oz of alcohol per week Comment: twisted tea x2/daily Social History Substance and Sexual Activity Drug Use Not Currently Allergies Allergen Reactions ??? Bactrim [Sulfamethoxazole-Trimethoprim] ??? Sulfa (Sulfonamide Antibiotics) Medications: MAR and/or home medications have been reviewed. Physical Exam: Preprocedure Vitals Current as of 07/14/23 0956 BP: 127/85 Pulse: 86 Resp: 18 SpO2: 98 Temp: 36.8 ??C (98.2 ??F) Height: 172.7 cm (5' 8) (07/14/23) Weight: 106.6 kg (235 lb) (07/14/23) BMI: 35.73 IBW: 63.9 kg (140 lb 13.3 oz) Last edited 07/14/23 0939 by CC Airway Assessment: Mallampati: II TM distance: >3 FB Neck ROM: full Cardiovascular Assessment: Rhythm: regular Pulmonary Assessment: breath sounds clear to auscultation Dental Assessment: Misc Assessment: IV access: Peripheral line Other exam findings: Large right tonsil Last Filed Perioperative Cognitive Screening None Anesthesia Plan: ASA 2 general, with a(n) intravenous induction 38 y/o here for tonsillectomy PMH: obesity, ADHD, pre-HTN. On Wegovy for weight loss, last dose 07/03. No EtOH or smoking, does vape PSH: tubal, no issues Plan: denies , GA ETT oral DEBBIE The patient was informed of the risks of anesthesia, and consent was obtained. The risks of anesthesia include, but are not limited to, PONV, pain, sore throat, and other rare but serious complications such as major organ damage, allergies, blood transfusions, intraoperative awareness, and dental/lip trauma. Region - Other Informed Consent: Anesthetic plan and risks discussed with patient. Use of blood products discussed with patient who. Plan discussed with COMMUNITY RELATIONS LIAISON. Anesthesia Screening documented in this encounter Plan of Treatment Not on file documented as of this encounter Visit Diagnoses Not on filedocumented in this encounter Administered Medications Inactive Administered Medications - up to 3 most recent administrations Medication Order MAR Action Action Date Dose Rate Site dexAMETHasone (Decadron) injection Intravenous, PRN, Starting on Mon07/14/23 at 1041, Until Mon07/14/23 at 1139, Anesthesia Intra-op, Routine Given 07/14/2023 10:41 AM EDT 8 mg dexmedeTOMIDine (Precedex) (4 mcg/mL) bolus injection (Anesthsia) Intravenous, PRN, Starting on Mon07/14/23 at 1025, Until Mon07/14/23 at 1139, Anesthesia Intra-op, Routine Given 07/14/2023 10:25 AM EDT 4 mcg fentaNYL (pf) (50 mcg/mL) multi-dose injection Intravenous, PRN, Starting on Mon07/14/23 at 1025, Until Mon07/14/23 at 1139, Anesthesia Intra-op, Routine Given 07/14/2023 10:34 AM EDT 50 mcg Given 07/14/2023 10:25 AM EDT 50 mcg labetaloL (Normodyne) (5 mg/mL) multi-dose injection Intravenous, PRN, Starting on Mon07/14/23 at 1040, Until Mon07/14/23 at 1139, Anesthesia Intra-op, Routine Given 07/14/2023 10:40 AM EDT 10 mg lactated ringers infusion 1,000 mL, at 100 mL/hr, Intravenous, CONTINUOUS, Starting on Mon07/14/23 at 0945, Until Mon07/14/23 at 1151, Day of Surgery (Day of Procedure) Restarted 07/14/2023 10:25 AM EDT New Bag 07/14/2023 9:57 AM EDT 1,000 mLs 100 mL/hr lidocaine (pf) (Xylocaine) (20 mg/mL) 2% injection syringe Intravenous, PRN, Starting on Mon07/14/23 at 1025, Until Mon07/14/23 at 1139, Anesthesia Intra-op, Routine Given 07/14/2023 10:25 AM EDT 70 mg midazolam (pf) (Versed) (1 mg/mL) multi-dose injection Intravenous, PRN, Starting on Mon07/14/23 at 1025, Until Mon07/14/23 at 1139, Anesthesia Intra-op, Routine Given 07/14/2023 10:25 AM EDT 2 mg ondansetron (pf) (Zofran) (2 mg/mL) injection Intravenous, PRN, Starting on Mon07/14/23 at 1046, Until Mon07/14/23 at 1139, Anesthesia Intra-op, Routine Given 07/14/2023 10:46 AM EDT 8 mg propofoL (Diprivan) (10 mg/mL) infusion Intravenous, CONTINUOUS PRN, Starting on Mon07/14/23 at 1025, Until Mon07/14/23 at 1139, Anesthesia Intra-op, Routine New Bag 07/14/2023 10:25 AM EDT 100 mcg/kg/min 63.96 mL/hr propofoL (Diprivan) 10 mg/mL bolus injection (Anesthesia) Intravenous, PRN, Starting on Mon07/14/23 at 1031, Until Mon07/14/23 at 1139, Anesthesia Intra-op Given 07/14/2023 10:33 AM EDT 50 mg Given 07/14/2023 10:32 AM EDT 50 mg Given 07/14/2023 10:31 AM EDT 150 mg succinylcholine (Anectine;Quelicin) (20 mg/mL) injection Intravenous, PRN, Starting on Mon07/14/23 at 1030, Until Mon07/14/23 at 1139, Anesthesia Intra-op, Routine Given 07/14/2023 10:30 AM EDT 100 mg documented in this encounter Care Teams Hydroelectric Plant Operator Relationship Specialty Start Date End Date Palmira Hartley APRN [address] [place] [address] PCP - General Family Medicine 02/25/22 documented as of this encounter
--- OUTSIDE RECORDS SUMMARY | 2024-10-25 22:04 | XMS_ITS | Encounter Summary ---
Author Organization [facility] Address [address] [place] [address] Care Team Providers Care Stapler Coil Unit Name Role Phone Unknown, Provider Primary Care Provider Juany Reeves Primary Care Provider Un available Encounter Details Date Type Department Care Team (Late st Contact Info) Description 11/04/2016 Historical Results Only [facility] - Main [address] [address] Queta Tiwari MD [address] [place] [address], [address] [place] [address] Social History Tobacco Use Types [...] Diagnosis Comments PROTEIN, TOTAL, RANDOM, URINE Routine 11/04/2016 8:45 EST documented in this encounter Results * (ABNORMAL) PROTEIN, TOTAL, RANDOM, URINE (11/04/2016 8:45 EST) URINE PROTEIN RANDOM - [facility] 20.5(H) 0 - 11.9 mg/DL 11/04/2016 10:40 EST [facility] 11/04/2016 8:45 EST 11/04/2016 9:12 EST Narrative [facility] - 11/04/2016 10:41 EST Does PT Have a Latex Allergy? NO us Queta Tiwari MD URINALYSIS ORDERABLES Final R esult [facility] documented in this encounter Visit Diagnoses Not on filedocumented in this encounter Care Teams Stapler Coil Unit Relationship Specialty Start Date End Date Unknown, Provider, PCP - General 05/20/11 06/27/19 Juany Landon ARNP [address] [address] PCP - General 06/28/19 documented as of this encounter
--- OUTSIDE RECORDS SUMMARY | 2024-10-25 22:04 | XMS_ITS | Encounter Summary ---
Author Organization [facility] Address [address] [place] [address] Care Team Providers Care Potato Bucker Name Role Phone Unknown, Provider Primary Care Provider Juany Reeves Primary Care Provider Un available Encounter Details Date Type Department Care Team (Late st Contact Info) Description 07/05/2016 Historical Results Only [facility] Radiology Results [address] [place] [phone] Mitzi Wiley MD [address] [facility], [address] [place] [address] Social History Tobacco Use Types [...] Procedure Name Priority Date/Time Associated Diagnosis Comments US OB ROUTINE (GREATER THAN 14 WEEKS) 07/05/2016 15:56 EDT documented in this encounter Results * US OB ROUTINE (GREATER THAN 14 WEEKS) (07/05/2016 15:56 EDT) Anatomical Region Laterality Modality Pelvis Other 07/05/2016 15:5 6 EDT Narrative 07/06/2016 11:32 EDT ? EXAM: ULTRASOUND/OB LEVEL 2 WITH TRANSVAG EX. D/ (1556) ? CLINICAL INFORMATION: ? Z33.1 GROWTH AND DEV, DIONY 11/27/16 BY LMP 02/21/16 ? See attached report. ??Report also available in PACS. ? BBL:kad ?Reported By: Reji Townsend MD ? CC: ? Transcribed Date/Time: 07/06/2016 (1132) ? Specifications Checker: OVIDIO ? Printed Date/Time: 04/05/2019 (8235) ? PAGE 1 ? Signed Report ? Procedure Note Reji Townsend MD - 08/28/2019 EXAM: ULTRASOUND/OB LEVEL 2 WITH TRANSVAG EX. D/ (1556) CLINICAL INFORMATION: Z33.1 GROWTH AND DEV, DIONY 11/27/16 BY LMP 02/21/16 See attached report. Report also available in PACS. BBL:jing Reported By: Reji Townsend MD CC: Transcribed Date/Time: 07/06/2016 (1132) Specifications Checker: OVIDIO Printed Date/Time: 04/05/2019 (6790) PAGE 1 Signed Report us Mitzi Wiley MD IMG OB ORDERABLES Final Re sult documented in this encounter Visit Diagnoses Not on filedocumented in this encounter Care Teams Potato Bucker Relationship Specialty Start Date End Date Unknown, Provider, PCP - General 05/20/11 06/27/19 Juany Landon ARNP [address] [address] PCP - General 06/28/19 documented as of this encounter
--- OUTSIDE RECORDS SUMMARY | 2024-10-25 22:04 | XMS_ITS | Encounter Summary ---
Author Organization [facility] Address [address] [place] [address] Care Team Providers Care Trucking Contractor Name Role Phone Unknown, Provider Primary Care Provider Juany Reeves Primary Care Provider Un available Encounter Details Date Type Department Care Team (Late st Contact Info) Description 10/14/[address] [facility] Lab - Main [place] [address] [place] [phone] Mitzi Wiley MD [address] [place] [address], [address] [place] [address] Social History Tobacco Use Types [...] Associated Diagnosis Comments CREATININE, URINE RANDOM Routine 10/14/2016 10:59 EST documented in this encounter Results * CREATININE, URINE RANDOM (10/14/2016 10:59 EST) URINE CREATININE RANDOM - [facility] 55.70 30 - 125 mg/dL 10/14/2016 14:55 EST [facility] 10/14/2016 10:5 9 EST 10/14/2016 14:11 EST us Mitzi Wiley MD URINALYSIS ORDERABLES Final R esult [facility] documented in this encounter Visit Diagnoses Not on filedocumented in this encounter Care Teams Trucking Contractor Relationship Specialty Start Date End Date Unknown, Provider, PCP - General 05/20/11 06/27/19 Juany Landon ARNP [address] [address] PCP - General 06/28/19 documented as of this encounter
--- OUTSIDE RECORDS SUMMARY | 2024-10-25 22:04 | XMS_ITS | Encounter Summary ---
Author Organization [facility] Address [address] [place] [address] Care Team Providers Care Outside Industrial Sales Representative Name Role Phone Unknown, Provider Primary Care Provider Juany Reeves Primary Care Provider Un available Encounter Details Date Type Department Care Team (Late st Contact Info) Description 10/28/2016 Historical Results Only [facility] - Main [address] [phone] Ellyn Quarles MD [address] [place] [address], [address] [place] [address] Social History Tobacco Use Types [...] Diagnosis Comments PROTEIN, TOTAL, RANDOM, URINE Routine 10/28/2016 8:40 EST documented in this encounter Results * (ABNORMAL) PROTEIN, TOTAL, RANDOM, URINE (10/28/2016 8:40 EST) URINE PROTEIN RANDOM - [facility] 18.3(H) 0 - 11.9 mg/DL 10/28/2016 9:25 EST [facility] 10/28/2016 8:40 EST 10/28/2016 8:51 EST Narrative [facility] - 10/28/2016 10:58 EST Does PT Have a Latex Allergy? NO us Ellyn Quarles MD URINALYSIS ORDERABLES Final Res ult [facility] documented in this encounter Visit Diagnoses Not on filedocumented in this encounter Care Teams Outside Industrial Sales Representative Relationship Specialty Start Date End Date Unknown, Provider, PCP - General 05/20/11 06/27/19 Juany Landon ARNP [address] [address] PCP - General 06/28/19 documented as of this encounter
--- OUTSIDE RECORDS SUMMARY | 2024-10-25 22:04 | XMS_ITS | Encounter Summary ---
Author Organization [facility] Address [address] [place] [address] Care Team Providers Care Lead Clinical Research Coordinator Name Role Phone Unknown, Provider Primary Care Provider Shayna Reeves Primary Care Provider Un available Encounter Details Date Type Department Care Team (Late st Contact Info) Description 04/29/2016 Historical Results Only [facility] Radiology Results [address] [place], [place] [phone] Ludivina Callejas, RECONSIGNMENT CLERK [address] [facility], [address] [place] [address] Social History Tobacco Use Types [...] Priority Date/Time Associated Diagnosis Comments US OB FIRST TRIMESTER (LESS THAN 14 WEEKS) TRANSVAGINAL 04/29/2016 15:13 EDT PAP TEST Routine 04/29/2016 documented in this encounter Results * US OB FIRST TRIMESTER (LESS THAN 14 WEEKS) TRANSVAGINAL (04/29/2016 15:13 EDT) Anatomical Region Laterality Modality Pelvis Other 04/29/2016 15:1 3 EDT Narrative 05/02/2016 9:51 EDT ? EXAM: ULTRASOUND/TRANSVAGINAL - OB (LEVEL EX. D/ (1513) ? CLINICAL INFORMATION: ? DATING AND VIABILITY ? Z34.90 ? See attached report. ??Report also available in PACS. ? DOCUMENT MANAGEMENT ANALYST:dnl ?Reported By: Po Forrest MD ? CC: ? Transcribed Date/Time: 05/02/2016 (950) ? Weir Fisherman: [email or web address] ? Printed Date/Time: 04/05/2019 (0107) ? PAGE 1 ? Signed Report ? Procedure Note Po Forrest MD - 08/28/2019 EXAM: ULTRASOUND/TRANSVAGINAL - OB (LEVEL EX. D/ (1513) CLINICAL INFORMATION: DATING AND VIABILITY Z34.90 See attached report. Report also available in PACS. DOCUMENT MANAGEMENT ANALYST:dnl Reported By: Po Forrest MD CC: Transcribed Date/Time: 05/02/2016 (950) Weir Fisherman: BETTYE Printed Date/Time: 04/05/2019 (0100) PAGE 1 Signed Report us Ludivina Callejas RECONSIGNMENT CLERK IMG US OB ORDERABLES Final Re sult * PAP TEST (04/29/2016) 04/29/2016 05/02/2016 10: 24 EDT Narrative [facility] - 05/06/2016 16:31 EDT ----- ------- Name: RUPASHAYNA ?: [birth year] ?Age/Sex: 34/F ?Unit#: [id number] ? Loc: AGO ? Status: REG POV ?? Reg Date: 04/29/16 ? Pt.Phone Number: ? ----- ------- This is an Amended or Addendum report. Any previous versions are stored internally and are available if necessary by calling the [facility] Pathology Dept at [phone] Specimen: [id number] ?STATUS: SOUT ?Spec Date:04/29/16 ? Physician Copies: ?Ludivina Callejas ? Tissues: ? Cervical/Endo Pap ?SHAYNA HALL CPT: 91227 ?? Units: ??1 ----- ------- ? CYTOLOGY DIAGNOSIS SPECIMEN ADEQUACY: ?Satisfactory for evaluation. Transformation zone component ABSENT. GENERAL CATEGORIZATION: ?Negative for Intraepithelial Lesion or Malignancy DESCRIPTIVE DIAGNOSIS: ? Negative for Intraepithelial Lesion or Malignancy. Comment: ?HPV positive/Pap NIL. HPV 16/18 genotyping addendum to follow. ----- ------- ?HPV DNA RESULTS ?? 04/29/16 1026 HPV DNA RESULT ??POS ? Positive for one or more of HPV types 16, 18, 31, 33, 35, ? 39, 45, 51, 52, 56, 58, 59, 66, or 68. ? Method: Cervista HPV HR (High Risk) DNA test. ----- ------- ? HPV 16 ?? 18 GENOTYPING ?? 07/08/16 0828 HPV 16 DNA ?Negative ? (Negative) ?? 07/08/16 0828 HPV 18 DNA ?Negative ? (Negative) ? Although HPV Genotypes 16 or 18 were Not Detected in this ? patient's sample, the patient may still be at risk for ? disease that could progress to high-grade cervical ? intraepithelial neoplasia or cervical cancer. HPV ? Genotypes ??16 and 18 only account for 65-75% of the cases of ? cervical ??cancer. There are multiple other types of HPV ? associated ??with a High Risk for the progression to cervical ? cancer. ??Therefore, it is important to correlate the HPV ? Genotypes ??results for this patient with the results of ? cytologic ??examination or other diagnostics findings. ----- ------- Patient: SHAYNA GOODE ?#[id number] ? (Continued) ----- ------- Specimen: [id number] ?Received: 05/02/16-1023 ?(Continued) ? HPV 16 ?? 18 GENOTYPING ? (Continued) ? Methodology: Cervista (TM) HPV 16/18 Invader test. ----- ------- ORDER QUERIES: LMP: 02/21/16- ? Y Post ? N ??PREVIOUS ATYPICAL: N BCP/HRT? N Rad Rx? N IUD? N ??PAP PLUS HPV? Y ??REFLEX TO HR-HPV IF ASCUS Y REFLEX TO HPV 16/18 IF HPV POS/PAP NEG Y HPV REGARDLESS? Y ??RFLX HPV IF LSIL ?? Signed Carmen Ambrose CT(ASCP) 05/06/16 By the signature above, the attending physician certifies that he/she has personally conducted a gross and/or microscopic examination of the described specimens and rendered or confirmed the above diagnosis. Test Performed by [facility], [address] [place] [address] Senior Ui Ux Designer: Alysha Kline MD PHD ----- ------- us Ludivina Callejas RECONSIGNMENT CLERK PATHOLOGY ORDERABLES Final Re sult [facility] documented in this encounter Visit Diagnoses Not on filedocumented in this encounter Care Teams Lead Clinical Research Coordinator Relationship Specialty Start Date End Date Unknown, Provider, PCP - General 05/20/11 06/27/19 Shayna Hall ARNP [address] [address] PCP - General 06/28/19 documented as of this encounter
--- OUTSIDE RECORDS SUMMARY | 2024-10-25 22:04 | XMS_ITS | Encounter Summary ---
Author Organization [facility] Address [facility] [place] [address] Care Team Providers Care Assistant Broker Name Role Phone Palmira Hartley APRN Primary Care Provider [phone] Reason for Visit * Consultation (Routine) - Closed Specialty Diagnoses / Procedures Referred By Gregg barraza Referred To Contact Otolaryngology Diagnoses Tonsil asymmetry Palmira Hartley APRN [address] [place] [address] [facility] [address] [place] [phone] Referral ID Status Reason Start Date Expiration Date V isits Requested Visits Authorized [id number] Closed Consult, Test & Treat PCP Updated and/or Approved 04/12/2023 04/12/2024 12 12 Encounter Details Date Type Department Care Team (Late st Contact Info) Description 08/07/2023 3:40 PM EDT Office [place] [address] Isabelle Salmon MD [facility] [place] [address] Tonsil asymmetry Social History Tobacco Use Types Packs/Day Years [...] on file documented as of this encounter Last Filed Vital Signs Vital Sign Reading Time Taken Comments Blood Pressure - - Pulse - - Temperature - - Respiratory Rate - - Oxygen Saturation - - Inhaled Oxygen Concentration - - Weight 107 kg (236 lb) 08/07/2023 3:39 PM EDT Height 172.7 cm (5' 8) 08/07/2023 3:39 PM EDT Body Mass Index 35.88 08/07/2023 3:39 PM EDT documented in this encounter Progress Notes * Isabelle Salmon MD - 08/07/2023 3:40 PM EDT [facility] Otolaryngology - Head and Neck Surgery Isabelle Salmon MD 08/07/23 3:43 PM [place] [address] Office Patient Name: Juany Tristan Date of : 1985 PCP: Palmira Hartley APRN Chief Complaint/History of Present Illness: Juany Tristan is a 38 y.o. year old seen in follow up. History was obtained from the patient as well as through chart review. She is about 2 weeks s/p tonsillectomy for asymmetric tonsils. The tonsils were of symmetric size when comparing them grossly after excision, there was a tonsil stone notedembedded in the right superior tonsil pole. She is recovering well, but did need a few days of oxycodone. No bleeding episodes. Otherwise doing ok. 10 point Review of Systems was normal except for pertinent positives and negatives included in the History of Present Illness. 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 50 mL 0 Wegovy 2.4 mg/0.75 mL Pen Injector dextroamphetamine-amphetamine (Adderall) 5 mg tablet Vyvanse 40 mg Capsule Take 1 capsule by mouth daily. No current facility-administered medications on file prior to visit. Allergies: Bactrim [sulfamethoxazole-trimethoprim] and Sulfa (sulfonamide antibiotics) Surgical History: Past Surgical History: Procedure Laterality Date PRO REMOVAL OF TONSILS, 12+ Y/O N/A 07/14/2023 TONSILLECTOMY AGE 12 AND OVER (WRVU 3.45) performed by Isabelle Salmon MD at [facility] Family and Social History Family History: No family history on file. Social History: Lives in [facility] [address] Social History Socioeconomic History Marital status: Spouse name: Not on file Number of children: Not on file Years of education: Not on file Highest education level: Not on file Occupational History Not on file Tobacco Use Smoking status: Former Types: Cigarettes, e-Cigarettes Smokeless tobacco: Never Vaping Use Vaping Use: Every day Substances: Nicotine Substance and Sexual Activity Alcohol use: Yes Alcohol/week: 2.0 standard drinks of alcohol Types: 2 Drinks containing 0.5 oz of alcohol per week Comment: twisted tea x2/daily Drug use: Not Currently Sexual activity: Not on file Other Topics Concern Not on file Social History Narrative Not on file Social Determinants of Health Financial Resource Strain: Not on file Food Insecurity: Not on file Transportation Needs: Not on file Physical Activity: Not on file Housing Stability: Not on file Physical Exam Temperature: Heart Rate: Blood Pressure: Respiratory Rate: SpO2: General: Awake, alert, and oriented to person, place and time. No acute distress Head and Face: Head is normocephalic, atraumatic. Facial resting tone symmetric. Eyes: Conjugate gaze, ocular motility intact bilaterally. PERRL. Neurologic: Cranial Nerves II-XII grossly intact and symmetric. Ears: External ear and ear canal are without deformity. Hearing is grossly normal. Nose: External nose is midline without deformity or lesion. Anterior rhinoscopy reveals a straight septum, healthy mucosa, turbinates normal in size. Oral: There are no visible or palpable buccal, gingival, lingual, or palatal lesions. The floor of mouth is soft and flat. Oropharynx: Tonsil fossae are well healed with minimal fibrinous exudate. Larynx:No hoarseness or stridor. Skin: Good skin turgor, no pallor, no icterus. Extremities: No gross deformities, no peripheral edema. 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 Electronically signed by: MD Tico, Tavares Mccrary Verified: 07/19/2023 10:27 Pathologist Performed at: -[facility] [place], [place] [address] Roving Machine Operator: Frandy Villanueva MD, FCAP, [place] Certificate: [id number] SPECIMEN(S) SUBMITTED A - RIGHT TONSIL, other (1) B - LEFT TONSIL, other (1) I reviewed the following imaging studies: Procedures ASSESSMENT & RECOMMENDATIONS Juany Tristan is a 38 y.o. s/p tonsillectomy for tonsil asymmetry, doing well. Recommendations: Pathology was reviewed with the patient, she will f/u with us prn. 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
--- OUTSIDE RECORDS SUMMARY | 2024-10-25 22:04 | XMS_ITS | Encounter Summary ---
Author Organization [facility] Address [address] [place] [address] Care Team Providers Care Sweater Designer Name Role Phone Unknown, Provider Primary Care Provider Juany Reeves Primary Care Provider Un available Encounter Details Date Type Department Care Team (Late st Contact Info) Description 10/18/2016 Historical Results Only [facility] Radiology Results [address] [place] [id number] Queta Tiwari MD [address] [place] [address], [address] [place] [address] Social History Tobacco Use Types [...] Priority Date/Time Associated Diagnosis Comments US OB FOLLOWUP 10/18/2016 13:38 EST COMPLETE BLOOD COUNT WITH DIFFERENTIAL (AUTO) Routine 10/18/2016 9:00 EST URIC ACID Routine 10/18/2016 9:00 EST LDH Routine 10/18/2016 9:00 EST COMPREHENSIVE METABOLIC PANEL (CMP) Routine 10/18/2016 9:00 EST PROTEIN/CREATININE RATIO, URINE Routine 10/18/2016 8:44 EST PROTEIN, TOTAL, RANDOM, URINE Routine 10/18/2016 8:44 EST CREATININE, URINE RANDOM Routine 10/18/2016 8:44 EST documented in this encounter Results * US OB FOLLOWUP (10/18/2016 13:38 EST) Anatomical Region Laterality Modality Pelvis Other 10/18/2016 13:3 8 EST Narrative 10/19/2016 11:50 EST ? EXAM: ULTRASOUND/OB LEVEL 2 FOLLOW UP ? EX. D/ (1338) ? CLINICAL INFORMATION: ? 013.3 ELEVATED BLOOD PRESSURE AFFECTING ? IN THIRD TRIMESTER, ANTEPARTUM ? CHECK GROWTH AND DEVELOPMENT ? See attached report. ??Report also available in PACS. ? DELIVERY DRIVER/SUPERVISOR:kad ?Reported By: Po Forrest MD ? CC: ? Transcribed Date/Time: 10/19/2016 (1150) ? Organ Tuner: [email or web address] ? Printed Date/Time: 04/06/2019 (0008) ? PAGE 1 ? Signed Report ? Procedure Note Po Forrest MD - 08/28/2019 EXAM: ULTRASOUND/OB LEVEL 2 FOLLOW UP EX. D/ (1337) CLINICAL INFORMATION: 013.3 ELEVATED BLOOD PRESSURE AFFECTING IN THIRD TRIMESTER, ANTEPARTUM CHECK GROWTH AND DEVELOPMENT See attached report. Report also available in PACS. DELIVERY DRIVER/SUPERVISOR:[email or web address] Reported By: Po Forrest MD CC: Transcribed Date/Time: 10/19/2016 (5130) Organ Tuner: OVIDIO Printed Date/Time: 04/06/2019 (5455) PAGE 1 Signed Report us Queta Tiwari MD [facility] OB ORDERABLES Final Re sult * URIC ACID (10/18/2016 9:00 EST) [facility] URIC ACID - [facility] 3.0 2.6 - 7.2 mg/dl 10/18/2016 9:33 EST [facility] 10/18/2016 9:00 EST 10/18/2016 9:09 EST Narrative [facility] - 10/18/2016 9:33 EST Does PT Have a Latex Allergy? NO Barbra Regan MD CHEMISTRY & BLOOD GAS ORDERABL ES Final Result Performing Organization Address City/[facility]/ZIP Co de Phone Number [facility] * LDH (10/18/2016 9:00 EST) [facility] LDH - [facility] 150 100 - 190 U/L 10/18/2016 9:33 EST [facility] 10/18/2016 9:00 EST 10/18/2016 9:09 EST [facility] - 10/18/2016 9:33 EST Does PT Have a Latex Allergy? NO Barbra Regan MD CHEMISTRY & BLOOD GAS ORDERABL ES Final Result [facility] * (ABNORMAL) COMPREHENSIVE METABOLIC PANEL (CMP) (10/18/2016 9:00 EST) [facility] Albumin % 2.6(L) 3.4 - 5.0 g/dL 10/18/2016 9:33 [facility] ALKALINE PHOSPHATASE - [facility] 110 41 - 126 U/L 10/18/2016 9:33 [facility] BILIRUBIN TOTAL 0.2 0.0 - 1.0 mg/dL 10/18/2016 9:33 [facility] BUN - [facility] 5(L) 7 - 18 mg/dL 10/18/2016 9:33 [facility] CALCIUM - [facility] 8.6 8.5 - 10.1 mg/dL 10/18/2016 9:33 [facility] Chloride 108(H) 98 - 107 mEq/L 10/18/2016 9:33 [facility] CO2 Total 22 21 - 32 mEq/L 10/18/2016 9:33 [facility] CREATININE 0.49(L) 0.5 - 1.3 mg/dL 10/18/2016 9:33 [facility] eGFR >60 10/18/2016 9:33 [facility] Comment: Chronic renal impairment is defined as GFR <60 Multiply result by 1.210 for patients. eGFR calculated using the IDMS-traceable MDRD Study Equation. ??(effective 08/25/2014) Anion Gap 9 5 - 15 10/18/2016 9:33 [facility] GLUCOSE - [facility] 93 70 - 100 mg/dL 10/18/2016 9:33 [facility] Potassium 3.7 3.5 - 5.0 mEq/L 10/18/2016 9:33 [facility] Sodium 139 135 - 145 mEq/L 10/18/2016 9:33 [facility] TOTAL PROTEIN - [facility] 6.8 6.4 - 8.2 gm/dl 10/18/2016 9:33 [facility] SGOT/AST - [facility] 9(L) 10 - 37 U/L 10/18/2016 9:33 [facility] SGPT/ALT - [facility] 13 12 - 78 U/L 10/18/2016 9:33 [facility] 10/18/2016 9:00 EST 10/18/2016 9:09 EST [facility] - 10/18/2016 9:33 EST Does PT Have a Latex Allergy? NO us Barbra eRgan MD CHEMISTRY & BLOOD GAS ORDERABL ES Final Result [facility] * (ABNORMAL) COMPLETE BLOOD COUNT WITH DIFFERENTIAL (AUTO) (10/18/2016 9:00 EST) ABSOLUTE NEUTROPHIL COUN - [facility] 10.42(H) 1.7 - 7.0 10e3/ul 10/18/2016 9:16 [facility] BASO # - [facility] 0.03 0.0 - 0.3 10e3/uL 10/18/2016 9:16 [facility] BASO % - [facility] 0 0 - 2 % 10/18/2016 9:16 [facility] EOS # - [facility] 0.17 0.05 - 0.5 10e3/uL 10/18/2016 9:16 [facility] EOS % - [facility] 1 0 - 5 % 10/18/2016 9:16 [facility] GRAN % - [facility] 73 40 - 80 % 10/18/2016 9:16 [facility] HEMATOCRIT - [facility] 35.0 34.0 - 47.0 % 10/18/2016 9:16 [facility] HEMOGLOBIN - [facility] 12.2 11.2 - 15.7 g/dl 10/18/2016 9:16 [facility] IG# - [facility] 0.14(H) 0 - 0.07 10e3/uL 10/18/2016 9:16 [facility] IG% - [facility] 1.0(H) 0 - 0.9 % 10/18/2016 9:16 [facility] LYMPH # - [facility] 2.67 0.9 - 2.9 10e3/uL 10/18/2016 9:16 [facility] LYMPH% - [facility] 19(L) 20 - 40 % 10/18/2016 9:16 [facility] MEAN CORPUSCULAR HGB - [facility] 30.0 26 - 34 pg 10/18/2016 9:16 [facility] MEAN CORPUSCULAR HGB CONC - [facility] 34.9 31 - 36 g/dL 10/18/2016 9:16 [facility] MEAN CELL VOLUME - [facility] 86.2 77 - 100 fl 10/18/2016 9:16 [facility] MONO # - [facility] 0.92(H) 0.3 - 0.9 10e3/uL 10/18/2016 9:16 [facility] MONO% - [facility] 6 0 - 12 % 10/18/2016 9:16 [facility] PLATELET COUNT 316 150 - 400 10e3/ul 10/18/2016 9:16 [facility] RED BLOOD COUNT - [facility] 4.06 3.8 - 5.2 10e6/ul 10/18/2016 9:16 [facility] RED CELL DISTRI WIDTH - [facility] 13.1 11.8 - 15.6 % 10/18/2016 9:16 [facility] WHITE BLOOD COUNT - [facility] 14.4(H) 3.5 - 10.5 10e3/ul 10/18/2016 9:16 [facility] 10/18/2016 9:00 EST 10/18/2016 9:10 EST [facility] - 10/18/2016 9:16 EST Does PT Have a Latex Allergy? NO Barbra Regan MD HEMATOLOGY & PF4 ORDERABLES Fi nal Result [facility] * PROTEIN/CREATININE RATIO, URINE (10/18/2016 8:44 EST) URINE PROTEIN: CREAT RATIO - [facility] 0.175 0 - 0.2 10/18/2016 9:41 [facility] 10/18/2016 8:44 EST 10/18/2016 9:19 EST Narrative [facility] - 10/18/2016 9:41 EST Does PT Have a Latex Allergy? NO us Barbra Regan MD URINALYSIS ORDERABLES Final Re sult [facility] * (ABNORMAL) PROTEIN, TOTAL, RANDOM, URINE (10/18/2016 8:44 EST) URINE PROTEIN RANDOM - [facility] 27.8(H) 0 - 11.9 mg/DL 10/18/2016 9:41 EST [facility] 10/18/2016 8:44 EST 10/18/2016 9:19 EST Narrative [facility] - 10/18/2016 9:41 EST Does PT Have a Latex Allergy? NO us Barbra Regan MD URINALYSIS ORDERABLES Final Re sult Performing Organization Address [facility]/ZIP Co de Phone Number [facility] * (ABNORMAL) CREATININE, URINE RANDOM (10/18/2016 8:44 EST) URINE CREATININE RANDOM - [facility] 158.00(H) 30 - 125 mg/dL 10/18/2016 9:41 EST [facility] 10/18/2016 8:44 EST 10/18/2016 9:19 EST Narrative [facility] - 10/18/2016 9:41 EST Does PT Have a Latex Allergy? NO us Barbra Regan MD URINALYSIS ORDERABLES Final Re sult Performing Organization Address City/[facility]/ZIP Co de Phone Number [facility] documented in this encounter Visit Diagnoses Not on filedocumented in this encounter Care Teams Sweater Designer Relationship Specialty Start Date End Date Unknown, Provider, PCP - General 05/20/11 06/27/19 Juany Landon ARNP [address] [place] [address] PCP - General 06/28/19 documented as of this encounter
--- OUTSIDE RECORDS SUMMARY | 2024-10-25 22:04 | XMS_ITS | Encounter Summary ---
Author Organization [facility] Address [address] [place] [address] Care Team Providers Care Credit Investigator Name Role Phone Unknown, Provider Primary Care Provider Juany Reeves Primary Care Provider Un available Encounter Details Date Type Department Care Team (Late st Contact Info) Description 10/07/2016 Historical Results Only [facility] - Main [address] [address] Barbra Regan MD [address] [facility] [address] [place] [address] Social History Tobacco Use Types Packs/Day Years [...] Diagnosis Comments PROTEIN, TOTAL, RANDOM, URINE Routine 10/07/2016 11:50 EST documented in this encounter Results * PROTEIN, TOTAL, RANDOM, URINE (10/07/2016 11:50 EST) URINE PROTEIN RANDOM - [facility] 11.9 0 - 11.9 mg/DL 10/07/2016 12:26 EST [facility] 10/07/2016 11:5 0 EST 10/07/2016 12:00 EST Narrative [facility] - 10/07/2016 12:26 EST Does PT Have a Latex Allergy? NO us Barbra Regan MD URINALYSIS ORDERABLES Final Re sult [facility] documented in this encounter Visit Diagnoses Not on filedocumented in this encounter Care Teams Credit Investigator Relationship Specialty Start Date End Date Unknown, Provider, PCP - General 05/20/11 06/27/19 Juany Landon ARNP [address] [place] [address] PCP - General 06/28/19 documented as of this encounter
--- OUTSIDE RECORDS SUMMARY | 2024-10-25 22:04 | XMS_ITS | Encounter Summary ---
Author Organization [facility] Address [address] [place] [address] Care Team Providers Care Benefits Processor Name Role Phone Unknown, Provider Primary Care Provider Juany Reeves Primary Care Provider Un available Encounter Details Date Type Department Care Team (Late st Contact Info) Description 12/29/[address] [facility] - Main [address] [id number] Mitzi Wiley MD [address] [place] [address], [address] [place] [address] Social History Tobacco Use Types [...] Procedure Name Priority Date/Time Associated Diagnosis Comments CHLAMYDIA/GC AMPLIFIED PROBE, URINE Routine 12/29/2016 11:47 EST documented in this encounter Results * CHLAMYDIA/GC AMPLIFIED PROBE, URINE (12/29/2016 11:47 EST) Chlamydia trachomatis Result SEE COMMENTS () 12/30/2016 12:46 EST [facility] Comment: No Chlamydia trachomatis DNA detected by corporate associate attorney mediated amplification. This test was developed and its performance characteristics determined by [facility]. It has not been cleared or approved by the US Food and Drug Administration. FDA does not require this test to go through premarket FDA review. This test is used for clinical purposes. It should not be regarded as investigational or for research. This laboratory is certified under the Clinical Laboratory Improvement Amendments (CLIA) as qualified to perform high complexity clinical laboratory testing. A first catch urine specimen is acceptable for detection of Gonorrhea and Chlamydia, but might detect up to 10% fewer infections when compared with vaginal and endocervical swab samples. GC Result SEE COMMENTS () 12/30/2016 12:46 [facility] Comment: No Neisseria gonorrhoeae DNA detected by corporate associate attorney mediated amplification. This test was developed and its performance characteristics determined by [facility]. It has not been cleared or approved by the US Food and Drug Administration. FDA does not require this test to go through premarket FDA review. This test is used for clinical purposes. It should not be regarded as investigational or for research. This laboratory is certified under the Clinical Laboratory Improvement Amendments (CLIA) as qualified to perform high complexity clinical laboratory testing. A first catch urine specimen is acceptable for detection of Gonorrhea and Chlamydia, but might detect up to 10% fewer infections when compared with vaginal and endocervical swab samples. Test Performed by: [place] [address] Locomotive Driver: Skip Hernandez MD , Ph D SPECIMEN DESCRIP - [facility]INE () 12/30/2016 12:46 [facility] 12/29/2016 11:4 7 EST 12/29/2016 14:45 EST Mitzi Wiley MD MICROBIOLOGY - GENERAL DILLON RODRIGUEZ Final Result [facility] documented in this encounter Visit Diagnoses Not on filedocumented in this encounter Care Teams Benefits Processor Relationship Specialty Start Date End Date Unknown, Provider, PCP - General 05/20/11 06/27/19 Juany Landon ARNP [address] [address] PCP - General 06/28/19 documented as of this encounter
--- OUTSIDE RECORDS SUMMARY | 2024-10-25 22:04 | XMS_ITS | Encounter Summary ---
Author Organization [facility] Address [address] [place] [address] Care Team Providers Care Emery Grinder Name Role Phone Unknown, Provider Primary Care Provider Unasugar ilable Encounter Details Date Type Department Care Team (Late st Contact Info) Description 06/07/2012 Results Only [facility] - [facility] ([facility]) [address] [place], [place] [address] Erik Billings, [facility] [address] [place] [phone] Social History Tobacco Use Types Packs/Day Years [...] Diagnosis Comments PAP TEST- RESULT ONLY Routine 06/07/2012 0:00 EDT documented in this encounter Results * PAP TEST- RESULT ONLY (06/07/2012 0:00 EDT) Pathology Report: CYTOPATHOLOGY REPORT Reports generated via electronic interface contain original data; however they are lacking the format of the original report. Caution should be taken when reading/interpreti ng unformatted reports. Name: ? SHAYNA GOODE ? Accession #: ? [id number] : ? 1985 (Age: 27) ??F ?Collect Date: ? 06/07/2012 Location: ? [facility] ? Receive Date: ? 06/08/2012 Provider: ?ERIK BILLINGS PAPER PRODUCTS MACHINE OPERATOR Copy to: ? Specimen/Source: ?Pap Test, Cervix/Endocervix, ThinPrep Imaging System with manual evaluation Last Menstrual Period: ? 05/28/12 ? SPECIMEN ADEQUACY ? Satisfactory for Evaluation - transformation zone component present GENERAL CATEGORIZATION ? Negative for Intraepithelial Lesion or Malignancy INTERPRETATION ? Shift in gerry present suggestive of bacterial vaginosis. ? Document reviewed and electronically signed by: ? CARA Jaquez(ASCP) ? Report Date: ??06/15/2012 10:45 End of Report [facility] 06/07/2012 06/08/2012 Erik Billings PAPER PRODUCTS MACHINE OPERATOR PATHOLOGY ORDERABLES Final R esult [facility] [address] [place] [address] documented in this encounter Visit Diagnoses Not on filedocumented in this encounter Care Teams Emery Grinder Relationship Specialty Start Date End Date Unknown, Provider, PCP - General 05/20/11 06/27/19 documented as of this encounter
--- OUTSIDE RECORDS SUMMARY | 2024-10-25 22:04 | XMS_ITS | Encounter Summary ---
[place] [address] Care Team Providers Care Care Taker Name Role Phone Palmira Hartley APRN Primary Care Provider [phone] Reason for Visit * Auth/Cert (Routine) Specialty Diagnoses / Procedures Referred By Gregg barraza Referred To Contact Diagnoses Tonsil asymmetry tonsil asymmetry Procedures PRO REMOVAL OF TONSILS, 12+ Y/O TONSILLECTOMY AGE 12 AND OVER (WRVU 3.45) Isabelle Salmon MD [facility] [place] [address] [facility] Referral ID Status Reason Start Date Expiration Date Visits Re quested Visits Authorized [id number] 1 1 Encounter Details Date Type Department Care Team (Latest Contact Info) Description 07/14/2023 9:15 AM EDT - 07/14/2023 11:50 AM EDT Hospital Encounter Outpatient [place] [address] Isabelle Salmon MD [facility] [place] [address] [address] Tonsil asymmetry Discharge Disposition: Home Social History Tobacco Use Types Packs/Day Years Used Date Smoking Tobacco: Former Cigarettes e-Cigarettes Smokeless Tobacco: Never Tobacco Cessation:Counseling Given: Not Answered Alcohol Use Standard Drinks/Week Comments Yes 2 [...] Sign Reading Time Taken Comments Blood Pressure 128/87 07/14/2023 11:30 AM EDT Pulse 73 07/14/2023 11:30 AM EDT Temperature 36.5 ??C (97.7 ??F) 07/14/2023 11:00 AM E DT Respiratory Rate 18 07/14/2023 11:15 AM EDT Oxygen Saturation 95% 07/14/2023 11:30 AM EDT Inhaled Oxygen Concentration - - Weight 106.6 kg (235 lb) 07/14/2023 9:39 AM EDT Height 172.7 cm (5' 8) 07/14/2023 9:39 AM EDT Body Mass Index 35.73 07/14/2023 9:39 AM EDT documented in this encounter Discharge Instructions * Discharge Instructions* Josseline Mc RN - 07/14/2023 9:59 AM EDT General Anesthesia Discharge Instructions Go home and rest. You may be sleepy for several hours. Take it easy as sudden position changes may cause nausea and/or dizziness. Use caution on stairs. Do not smoke if you are alone. Follow a light to regular diet as tolerated today. If nausea occurs, start with clear liquids, and progress slowly to a regular diet. Do not drive, operate machinery, drink alcoholic beverages or make any legal decisions after havinggeneral anesthesia. The medications given change your reaction time and alter your judgement. IV site -- slight redness is normal, you can use warm compresses. If tenderness and redness increases or foul drainage occurs, please contact your M.D. Patients who have had endotracheal tubes/LMA (tubes used by the anesthesia staff to ensure a safe airway during your operation) may have a sore throat. This is normal and cold liquids or soothing lozenges will help ease this discomfort. Narcotic pain medications can cause constipation, please ask the surgeons office what they recommend for prevention of this. Some non-pharmaceutical means of constipation prevention include increasing intake of fluids, eating more fruits and vegetables as well as fruit juices. If you are uncomfortable and/or unable to urinate within 8 hours of discharge and it is before 5 pm, call your physician. If it is after 5pm go to the closest emergency room or call the hospital portable sawmill operator at [phone] and ask for physician operations and maintenance manager covering for your physician. Questions or problems after 5pm or on a weekend: Call the [facility] portable sawmill operator at and ask for the physician operations and maintenance manager covering for your doctor. At ~ 9:30 am you received 975 mg of acetaminophen- Your next dose should not be taken before 6-8 hours have passed. Next dose not before- 3:30 pm You should not take more than a total of 3000 mg of acetaminophen in a 24 hour period. * Patient Instructions* Isabelle Salmon MD - 07/14/2023 10:53 AM EDT Go home and rest Avoid heavy lifting, straining, and bending for 2 weeks [place] streaks in your saliva is normal, but notify us or go to the nearest ER if you cough up shani blood or clots. Soft diet for 2 weeks. Staying hydrated is melchor! Try to be sipping liquids at all times. The more dehydrated you get, the worse the pain gets, the less you want to drink, and things snowball from there. Take regularly scheduled doses of tylenol and ibuprofen for pain. Call Dr. Salmon's office if you think you may need something stronger. Ear pain is normal after this type of surgery A low grade fever is also normal in the days after surgery. Notify us if your fever is above 101.3For occurs more than 72 hours after surgery. documented in this encounter Medications at Time of Discharge Medication Sig Dispensed Refills Start Date End Date Wegovy 2.4 mg/0.75 mL Pen Injector 05/29/2023 dextroamphetamine-ampheta mine (Adderall) 5 mg tablet 01/10/2023 Vyvanse 40 mg Capsule Take 1 capsule by mouth daily. 10/05/2021 documented as of this encounter Progress Notes * Marleny Granado RN - 07/14/2023 11:52 AM EDT Pt c/o throat pain, swelling. She was encouraged to drink water and was given a popsicle for comfort. VSS, no c/o nausea or dizziness. Discharge instructions and medications reviewed with patient and escort. All questions answered andwritten copy sent home with patient. Patient ambulated to car for discharge accompanied by [facility] staff member. All belongings with pt at discharge. documented in this encounter H&P Notes * Isabelle Salmon MD - 07/14/2023 10:13 AM EDT INTERVAL H&P S: Juany Tristan's condition unchanged since H&P originally performed Denies any new ED visits, hospitalizations, trauma, or new events. Has been overall doing well. O: Patient Vitals for the past 24 hrs: BP Temp Temp src Pulse Resp SpO2 Height Weight 07/14/23 0939 127/85 36.8 ??C (98.2 ??F) Temporal 86 18 98 % 172.7 cm (5' 8) 106.6 kg (235 lb) NAD, A&Ox3 Non-labored respirations, clear to auscultation bilaterally Regular rate and rhythm, no murmur on auscultation Site marked AP: 38 y.o. female with tonsil asymmetry. - After extensive discussion of the risks, benefits, and alteratives of surgical intervention, the patient consented to proceed with surgery. - IV antibiotics ordered - Proceed to OR for: Procedure(s): TONSILLECTOMY AGE 12 AND OVER (WRVU 3.45) Isabelle Salmon MD documented in this encounter Miscellaneous Notes * Op Note - Isabelle Salmon MD - 07/14/2023 10:39 AM EDT [facility] Operative Note Patient Name: Juany Tristan : [id number] MR#: [id number] Case Date: 07/14/2023 Surgeon: Surgeon(s) and Role: * Isabelle Salmon MD - Primary Preoperative diagnosis: tonsil asymmetry Postoperative diagnosis: tonsil asymmetry Procedure(s) (LRB): TONSILLECTOMY AGE 12 AND OVER (WRVU 3.45) (N/A) Anesthesia: General Estimated Blood Loss: Specimens removed during surgery: Order Name Source Comment Collection Info Order Time SPECIMEN TO PATHOLOGY tonsil asymmetry RIGHT TONSIL other No 07/14/2023 10:44 AM Time specimen removed from patient: 10:43 AM Number of tissue samples (in container) 1 SPECIMEN TO PATHOLOGY tonsil asymmetry LEFT TONSIL other 07/14/2023 10:45 AM Time specimen removed from patient: 10:45 AM Number of tissue samples (in container) 1 Drains: * No LDAs found * Surgical Closure: n/a Disposition: awakened from anesthesia, extubated and taken to the recovery room in a stable condition, having suffered no apparent untoward event. Condition: doing well without problems (Please see the Surgical Encounter Summary for any Implant and Specimen details pertinent to this patient.) HPI/Surgical Indications: 38 y/o with tonsil asymmetry right > left. Procedure Description: After informed consent was obtained, patient was brought to the operating room and placed supine on the operating room table. A time-out was performed and confirmed amongst theoperating room staff. General anesthesia was administered. Patient was prepped and draped in standard sterile fashion. McIvor retractor was used to expose the oropharynx, this was then suspended on to towels. Upon examination there were found to be no aberrant carotid arteries and no submucous cleft. The right tonsilwas grasped with a Allis clamp and retracted medially. Protected tip bovie cautery was used to makean incision through the anterior superior tonsillar pole and carried in an avascular plane until the tonsil was freed from the tonsil bed. Any areas of bleeding were cauterized with suction tip bovie. The left tonsil was grasped with an Allis clamp and removed in identical fashion. Oropharynx was then irrigated with normal saline, stomach was suctioned using an orogastric tube, and patient awoke from general anesthesia in stable condition, extubated. Surgical Infection Prevention Bundle Used? N/A Attestation: Case Date: 07/14/2023 I performed this procedure without the involvement of a resident. Isabelle Salmon MD 07/14/2023 documented in this encounter Plan of Treatment Not on file documented as of this encounter Procedures Procedure Name Priority Date/Time Associated Diagnosis Comments SPECIMEN TO PATHOLOGY Routine 07/14/2023 10:45 AM EDT SURGICAL PATHOLOGY REPORT Routine 07/14/2023 10:44 AM EDT SPECIMEN TO PATHOLOGY Routine 07/14/2023 10:44 AM EDT Removal Of Tonsils, 12+ Y/O (68049) 07/14/2023 10:26 AM EDT Tonsil asymmetry TONSILLECTOMY OVER AGE 12 Routine 07/14/2023 9:18 AM EDT Tonsil asymmetry documented in this encounter Results * Specimen to Pathology (07/14/2023 10:45 AM EDT) AP Specimen 07/14/2023 10:4 5 AM EDT 07/14/2023 10:45 AM EDT Narrative [facility] - 07/14/2023 10:45 AM EDT Specimen requisition ordered. ??Separate Pathology report to follow Isabelle Salmon MD PATHOLOGY/CYTOLOGY O RDERABLES [facility] [place] [address] * Surgical Pathology Report (07/14/2023 10:44 AM EDT) Final Diagnosis [id number] ? Location: [facility] The signing pathologist has (i) examined the relevant preparation(s) for the specimen(s) and (ii) rendered or confirmed the diagnosis(es). . 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 Electronically signed by: ?MD Tico, Tavares Mccrary Verified: ??07/19/2023 10:27 ??Pathologist Performed at: ??-[facility] Dept. of Pathology, [place] [address] [facility] Specialist: Frandy Villanueva MD, FCAP, ??CLIA Certificate: [id number] SPECIMEN(S) SUBMITTED A - RIGHT TONSIL, other (1) B - LEFT TONSIL, other (1) CLINICAL INFORMATION Tonsil asymmetry SPECIMEN PROCESSING A - Labeled/Fixative: Right tonsil, fresh. Quantity/Size: Single, 3.5 x 1.8 x 1.8 cm. Tissue Description: [place]-pink, rubbery, focally hemorrhagic tonsil. Cut surfaces are congested, redding-pink with deep tonsillar crypts with fragmented grumous contents. Sections/Processi ng: Gravel Hauler sections in 2 cassettes labeled A1-A2. B - Labeled/Fixative: Left tonsil, fresh. Quantity/Size: Single, 2.5 x 1.8 x 1.5 cm. Tissue Description: [place]-pink, rubbery, focally hemorrhagic tonsil. Cut surfaces are congested, redding-pink with deep tonsillar crypts with fragmented grumous contents. Sections/Processi ng: Gravel Hauler sections in 2 cassettes labeled B1-B2. ??pps 07/19/2023 10:27 AM EDT [facility] BILATERAL PALATINE TONSILS / Unknown 07/14/2023 10:44 AM EDT 07/14/2023 10:44 AM EDT BILATERAL PALATINE TONSILS / Unknown 07/14/2023 10:44 AM EDT 07/14/2023 10:44 AM EDT Isabelle Salmon MD PATHOLOGY/CYTOLOGY O MARTIN [facility] [place] [address] [facility] [place] [place] [address] * Specimen to Pathology (07/14/2023 10:44 AM EDT) AP Specimen 07/14/2023 10:4 4 AM EDT 07/14/2023 10:44 AM EDT Narrative [facility] - 07/14/2023 10:44 AM EDT Specimen requisition ordered. ??Separate Pathology report to follow Isabelle Salmon MD PATHOLOGY/CYTOLOGY O MARTIN Performing Organization Address City/[facility]/ZIP Co de Phone Number [facility] [place] [address] documented in this encounter Visit Diagnoses Diagnosis Tonsil asymmetry Other chronic disease of tonsils and adenoids documented in this encounter Administered Medications Inactive Administered Medications - up to 3 most recent administrations Medication Order MAR Action Action Date Dose Rate Site acetaminophen (Tylenol) tablet 975 mg 975 mg, Oral, ONCE, 1 dose, On Mon07/14/23 at 0945, Administer with a SIP of water only. Maximum dose of acetaminophen is 4,000 mg from all sources in 24 hours., Day of Surgery (Day of Procedure), Routine Given 07/14/2023 9:35 AM EDT 975 mg lactated ringers infusion 1,000 mL, at 100 mL/hr, Intravenous, CONTINUOUS, Starting on Mon07/14/23 at 0945, Until Mon07/14/23 at 1151, Day of Surgery (Day of Procedure) Restarted 07/14/2023 10:25 AM EDT New Bag 07/14/2023 9:57 AM EDT 1,000 mLs 100 mL/hr documented in this encounter Active and Recently Administered Medications Times are shown in EDT. Scheduled Medication Order 07/12/2023 07/13/2023 07/14/2023 acetaminophen (Tylenol) tablet 975 mg (COMPLETED) 975 mg, Oral, ONCE, 1 dose, On Mon07/14/23 at 0945, Administer with a SIP of water only. Maximum dose of acetaminophen is 4,000 mg from all sources in 24 hours., Day of Surgery (Day of Procedure), Routine 0935 (Given - Provid er: Josseline Mc RN) Continuous Medication Order 07/12/2023 07/13/2023 07/14/2023 lactated ringers infusion (CANCELED) 1,000 mL, at 100 mL/hr, Intravenous, CONTINUOUS, Starting on Mon07/14/23 at 0945, Until Mon07/14/23 at 1151, Day of Surgery (Day of Procedure) 0957 (New Bag - Prov ider: Josseline Mc RN)1024 (Paused - Provider: Lela Ivey CRNA - Comment: Switch to gravity)1025 (Restarted - Provider: Lela Ivey CRNA)1046 (Anesthesia Volume Adjustment - Provider: Lela Ivey CRNA) documented in this encounter Care Teams Care Taker Relationship Specialty Start Date End Date Palmira Hartley APRN [address] [place] [address] PCP - General Family Medicine 02/25/22 documented as of this encounter
--- OUTSIDE RECORDS SUMMARY | 2024-10-25 22:04 | XMS_ITS | Encounter Summary ---
[place] [address] Care Team Providers Care Lens Inserter Name Role Phone Palmira Hartley APRN Primary Care Provider [phone] Reason for Visit * Auth/Cert (Routine) Specialty Diagnoses / Procedures Referred By Gregg barraza Referred To Contact Diagnoses Tonsil asymmetry tonsil asymmetry Procedures PRO REMOVAL OF TONSILS, 12+ Y/O TONSILLECTOMY AGE 12 AND OVER (WRVU 3.45) Isabelle Salmon MD [facility] [place] [address] [facility] Referral ID Status Reason Start Date Expiration Date Visits Re quested Visits Authorized [id number] 1 1 Encounter Details Date Type Department Care Team (Late st Contact Info) Description 07/14/2023 10:33 AM EDT - 07/14/2023 11:53 AM EDT Surgery [place] [address] Isabelle Salmon MD [facility] [address] TONSILLECTOMY AGE 12 AND OVER (WRVU 3.45) Social History Tobacco Use Types Packs/Day Years [...] closest emergency room or call the hospital planishing hammer operator at [phone] and ask for physician instructional support services director covering for your physician. Questions or problems after 5pm or on a weekend: Call the [facility] planishing hammer operator at and ask for the physician instructional support services director covering for your doctor. At ~ 9:30 [...] lifting, straining, and bending for 2 weeks [place] streaks in your saliva is normal, but [...] Salmon MD - 07/14/2023 10:39 AM EDT [facility] [place] Operative Note Patient Name: Juany Tristan : [id number] MR#: [id number] Case Date: 07/14/2023 Surgeon: Surgeon(s) and Role: [...] AM EDT Removal Of Tonsils, 12+ Y/O (27468) 07/14/2023 10:26 AM EDT Tonsil asymmetry TONSILLECTOMY OVER AGE 12 Routine 07/14/2023 9:18 AM EDT Tonsil asymmetry documented in this encounter Results * Specimen to Pathology (07/14/2023 10:45 AM EDT) AP Specimen 07/14/2023 10:4 5 AM EDT 07/14/2023 10:45 AM EDT Narrative [facility] - 07/14/2023 10:45 AM EDT Specimen requisition ordered. ??Separate Pathology report to follow Isabelle Salmon MD PATHOLOGY/CYTOLOGY O RDERABLES [facility] [place] [address] * Surgical Pathology Report (07/14/2023 10:44 AM EDT) Final Diagnosis [id number] ? Location: [facility] The signing pathologist has [...] Mccrary Verified: ??07/19/2023 10:27 ??Pathologist Performed at: ??-[facility] Dept. of Pathology, [place] [address] Web Project Manager: Frandy Villanueva MD, FCAP, ??CLIA Certificate: [id number] SPECIMEN(S) SUBMITTED A - RIGHT TONSIL, other (1) B - LEFT TONSIL, other (1) CLINICAL INFORMATION Tonsil asymmetry SPECIMEN PROCESSING A - Labeled/Fixative: Right tonsil, fresh. Quantity/Size: Single, 3.5 x 1.8 x 1.8 cm. Tissue Description: [place]-pink, rubbery, focally hemorrhagic tonsil. Cut surfaces are congested, redding-pink with deep tonsillar crypts with fragmented grumous contents. Sections/Processi ng: Director Manufacturing Engineering sections in 2 cassettes labeled A1-A2. B - Labeled/Fixative: Left tonsil, fresh. Quantity/Size: Single, 2.5 x 1.8 x 1.5 cm. Tissue Description: [place]-pink, rubbery, focally hemorrhagic tonsil. Cut surfaces are congested, redding-pink with deep tonsillar crypts with fragmented grumous contents. Sections/Processi ng: Director Manufacturing Engineering sections in 2 cassettes labeled B1-B2. ??pps 07/19/2023 10:27 AM EDT [facility] BILATERAL PALATINE TONSILS / Unknown 07/14/2023 10:44 AM EDT 07/14/2023 10:44 AM EDT BILATERAL PALATINE TONSILS / Unknown 07/14/2023 10:44 AM EDT 07/14/2023 10:44 AM EDT Isabelle Salmon MD PATHOLOGY/[place] [address] [facility] [place] [address] * Specimen to Pathology (07/14/2023 10:44 AM EDT) AP Specimen 07/14/2023 10:4 4 AM EDT 07/14/2023 10:[address] [facility] - 07/14/2023 10:44 AM EDT Specimen requisition ordered. ??Separate Pathology report to follow Isabelle Salmon MD PATHOLOGY/CYTOLOGY O MARTIN Performing Organization Address City/[facility]/ZIP Co de Phone Number [facility] [place] [address] documented in this encounter Visit Diagnoses Diagnosis Tonsil asymmetry Other chronic disease of tonsils and adenoids Tonsil asymmetry Other chronic disease of tonsils [...] CRNA) documented in this encounter Care Teams Lens Inserter Relationship Specialty Start Date End Date Palmira Hartley APRN [address] [place] [address] PCP - General Family Medicine 02/25/22 documented as of this encounter
--- OUTSIDE RECORDS SUMMARY | 2024-10-25 22:04 | XMS_ITS | Encounter Summary ---
Author Organization [facility] Address [address] [place] [address] Care Team Providers Care Farrowing Manager Name Role Phone Unknown, Provider Primary Care Provider Juany Reeves Primary Care Provider Un available Encounter Details Date Type Department Care Team (Late st Contact Info) Description 10/28/[address] [facility] - [facility] Lab - Main [place] [address] [place] [address] [phone] Ellyn Quarles MD [address] [place] [address], [address] [place] [address] Social History Tobacco Use Types [...] COMPLETE BLOOD COUNT WITH DIFFERENTIAL (AUTO) Routine 10/28/2016 9:16 EST URIC ACID Routine 10/28/2016 9:16 EST BUN Routine 10/28/2016 9:16 EST ALT Routine 10/28/2016 9:16 EST AST Routine 10/28/2016 9:16 EST CREATININE Routine 10/28/2016 9:16 EST PROTEIN/CREATININE RATIO, URINE Routine 10/28/2016 8:40 EST documented in this encounter Results * URIC ACID (10/28/2016 9:16 EST) Pathologist [facility] URIC ACID - [facility] 3.0 2.6 - 7.2 mg/dl 10/28/2016 9:37 EST [facility] 10/28/2016 9:16 EST 10/28/2016 9:20 EST [facility] - 10/28/2016 10:59 EST Does PT Have a Latex Allergy? NO AOT: 10/28/16 1058: CREAT Ellyn Quarles MD CHEMISTRY & BLOOD GAS ORDERABLE S Final Result Performing Organization Address City/[facility]/ZIP Co de Phone Number [facility] * (ABNORMAL) ALT (10/28/2016 9:16 EST) Pathologist [facility] SGPT/ALT - [facility] 11(L) 12 - 78 U/L 10/28/2016 9:37 EST [facility] 10/28/2016 9:16 EST 10/28/2016 9:20 EST [facility] - 10/28/2016 10:59 EST Does PT Have a Latex Allergy? NO AOT: 10/28/16 1058: CREAT us Ellyn Quarles MD CHEMISTRY & BLOOD GAS ORDERABLE S Final Result [facility] * AST (10/28/2016 9:16 EST) Pathologist [facility] SGOT/AST - [facility] 11 10 - 37 U/L 10/28/2016 9:37 EST [facility] 10/28/2016 9:16 EST 10/28/2016 9:20 EST [facility] - 10/28/2016 10:59 EST Does PT Have a Latex Allergy? NO AOT: 10/28/16 1058: CREAT Ellyn Quarles MD CHEMISTRY & BLOOD GAS ORDERABLE S Final Result Performing Organization Address [facility]/ZIP Co de Phone Number [facility] * CREATININE (10/28/2016 9:16 EST) [facility] CREATININE 0.50 0.5 - 1.3 mg/dL 10/28/2016 10:59 EST [facility] eGFR >60 10/28/2016 10:59 EST [facility] Comment: Chronic renal impairment is defined as GFR <60 Multiply result by 1.210 for patients. eGFR calculated using the IDMS-traceable MDRD Study Equation. ??(effective 08/25/2014) 10/28/2016 9:16 EST 10/28/2016 9:20 EST [facility] - 10/28/2016 10:59 EST Does PT Have a Latex Allergy? NO AOT: 10/28/16 1058: CREAT Ellyn Quarles MD CHEMISTRY & BLOOD GAS ORDERABLE S Final Result Performing Organization Address [facility] de Phone Number [facility] * (ABNORMAL) BUN (10/28/2016 9:16 EST) [facility] BUN [facility] 6(L) 7 - 18 mg/dL 10/28/2016 9:37 EST [facility] 10/28/2016 9:16 EST 10/28/2016 9:20 EST Narrative [facility] - 10/28/2016 10:59 EST Does PT Have a Latex Allergy? NO AOT: 10/28/16 1058: CREAT Ellyn Quarles MD CHEMISTRY & BLOOD GAS ORDERABLE S Final Result Performing Organization Address [facility]/ZIP Co de Phone Number [facility] * (ABNORMAL) COMPLETE BLOOD COUNT WITH DIFFERENTIAL (AUTO) (10/28/2016 9:16 EST) ABSOLUTE NEUTROPHIL COUN - [facility] 8.35(H) 1.7 - 7.0 10e3/ul 10/28/2016 9:29 [facility] BASO # - [facility] 0.02 0.0 - 0.3 10e3/uL 10/28/2016 9:29 [facility] BASO % - [facility] 0 0 - 2 % 10/28/2016 9:29 [facility] EOS # - [facility] 0.16 0.05 - 0.5 10e3/uL 10/28/2016 9:29 [facility] EOS % - [facility] 1 0 - 5 % 10/28/2016 9:29 [facility] GRAN % - [facility] 72 40 - 80 % 10/28/2016 9:29 [facility] HEMATOCRIT - [facility] 35.2 34.0 - 47.0 % 10/28/2016 9:29 [facility] HEMOGLOBIN - [facility] 12.0 11.2 - 15.7 g/dl 10/28/2016 9:29 [facility] IG# - [facility] 0.10(H) 0 - 0.07 10e3/uL 10/28/2016 9:29 [facility] IG% - [facility] 0.9 0 - 0.9 % 10/28/2016 9:29 [facility] LYMPH # - [facility] 2.19 0.9 - 2.9 10e3/uL 10/28/2016 9:29 [facility] LYMPH% - [facility] 19(L) 20 - 40 % 10/28/2016 9:29 [facility] MEAN CORPUSCULAR HGB - [facility] 29.5 26 - 34 pg 10/28/2016 9:29 [facility] MEAN CORPUSCULAR HGB CONC - [facility] 34.1 31 - 36 g/dL 10/28/2016 9:29 [facility] MEAN CELL VOLUME - [facility] 86.5 77 - 100 fl 10/28/2016 9:29 [facility] MONO # - [facility] 0.76 0.3 - 0.9 10e3/uL 10/28/2016 9:29 [facility] MONO% - [facility] 7 0 - 12 % 10/28/2016 9:29 EST [facility] PLATELET COUNT 312 150 - 400 10e3/ul 10/28/2016 9:29 EST [facility] RED BLOOD COUNT - [facility] 4.07 3.8 - 5.2 10e6/ul 10/28/2016 9:29 [facility] RED CELL DISTRI WIDTH - [facility] 13.3 11.8 - 15.6 % 10/28/2016 9:29 [facility] WHITE BLOOD COUNT - [facility] 11.6(H) 3.5 - 10.5 10e3/ul 10/28/2016 9:29 [facility] 10/28/2016 9:16 EST 10/28/2016 9:20 EST Narrative [facility] - 10/28/2016 9:29 EST Does PT Have a Latex Allergy? NO us Ellyn Quarles MD HEMATOLOGY & PF4 ORDERABLES Fin al Result [facility] * PROTEIN/CREATININE RATIO, URINE (10/28/2016 8:40 EST) URINE PROTEIN: CREAT RATIO - [facility] 0.147 0 - 0.2 10/28/2016 9:25 EST [facility] 10/28/2016 8:40 EST 10/28/2016 8:51 EST Narrative [facility] - 10/28/2016 10:58 EST Does PT Have a Latex Allergy? NO us Ellyn Quarles MD URINALYSIS ORDERABLES Final Res ult [facility] documented in this encounter Visit Diagnoses Not on filedocumented in this encounter Care Teams Farrowing Manager Relationship Specialty Start Date End Date Unknown, Provider, PCP - General 05/20/11 06/27/19 Juany Landon ARNP [address] [address] PCP - General 06/28/19 documented as of this encounter
--- OUTSIDE RECORDS SUMMARY | 2024-10-25 22:04 | XMS_ITS | Encounter Summary ---
Author Organization [facility] Address [address] [place] [address] Care Team Providers Care Paint Sprayer Sandblaster Name Role Phone Unknown, Provider Primary Care Provider Juany Reeves Primary Care Provider Un available Encounter Details Date Type Department Care Team (Late st Contact Info) Description 11/04/2016 Historical Results Only [facility] Lab - Main [address] [address] Queta Tiwari MD [address] [place] [address], [address] [place] [address] Social History Tobacco Use Types [...] Associated Diagnosis Comments CREATININE, URINE RANDOM Routine 11/04/2016 8:45 EST documented in this encounter Results * (ABNORMAL) CREATININE, URINE RANDOM (11/04/2016 8:45 EST) URINE CREATININE RANDOM - [facility] 147.00(H) 30 - 125 mg/dL 11/04/2016 10:40 EST [facility] 11/04/2016 8:45 EST 11/04/2016 9:12 EST Narrative [facility] - 11/04/2016 10:41 EST Does PT Have a Latex Allergy? NO us Queta Tiwari MD URINALYSIS ORDERABLES Final R esult [facility] documented in this encounter Visit Diagnoses Not on filedocumented in this encounter Care Teams Paint Sprayer Sandblaster Relationship Specialty Start Date End Date Unknown, Provider, PCP - General 05/20/11 06/27/19 Juany Landon ARNP [address] [address] PCP - General 06/28/19 documented as of this encounter
--- OUTSIDE RECORDS SUMMARY | 2024-10-25 22:04 | XMS_ITS | Encounter Summary ---
Author Organization [facility] Address [address] [place] [address] Care Team Providers Care Boulevard Glassware Replacer Name Role Phone Unknown, Provider Primary Care Provider Adilene jacob Encounter Details Date Type Department Care Team ([facility] st Contact Info) Description 06/26/2019 Results Only [facility] [phone] Cheryl Still MD [address] [place] [id number] Social History Tobacco Use Types Packs/Day Years [...] Procedure Name Priority Date/Time Associated Diagnosis Comments SURGICAL PATHOLOGY Routine 06/26/2019 16 :59 EDT documented in this encounter Results * SURGICAL PATHOLOGY (06/26/2019 16:59 EDT) Pathology Report: SURGICAL PATHOLOGY REPORT Reports generated via electronic interface contain original data; however they are lacking the format of the original report. Caution should be taken when reading/interpret ing unformatted reports. Name: ? SHAYNA GOODE ? Accession #: ? [id number] ? : ? 1985 (Age: 34) ??F ? Collect Date: ? 06/26/2019 ? Location: ? [facility] ? Receive Date: ? 06/26/2019 ? Provider: CHERYL STILL MD Copy to: SHAYNA RAFAEL FITNESS FLOOR ATTENDANT ? Final Pathologic Diagnosis: A. FALLOPIAN TUBE, RIGHT, RESECTION: - Fallopian tube with intact lumen and fimbriated end. - Paratubal cysts. B. FALLOPIAN TUBE, LEFT, RESECTION: - Fallopian tube with intact lumen and fimbriated end. Document reviewed and electronically signed by: Albert Nash MD Report ??Date: 06/30/2019 07:52 By the signature above, the attending physician certifies that he/she has personally conducted a gross and/or microscopic examination of the described specimens and rendered or confirmed the above diagnosis. Specimen(s) Received: A. ??Right fallopian tube B. ??Left fallopian tube Clinical History: Desire for permanent sterilization Gross Description: A. ?Received in formalin labelled with proper patient identification (initials S, J) and R fallopian tube is a 6.0 cm in length x 0.4 cm in diameter fimbriated fallopian tube. The serosa is smooth and herbal amin with a single pedunculated paratubal cyst (0.7 cm in greatest dimension). Sectioning reveals a patent, unremarkable lumen. Brazing Machine Operator Automatic sections, to include bisected fimbria, are submitted in A1-A2. B. ?Received in formalin labelled with proper patient identification (initials S, J) and L fallopian tube is a 5.5 cm in length x 0.5 cm in diameter fimbriated fallopian tube. The serosa is smooth and pink-redding. Sectioning reveals a patent, unremarkable lumen. Brazing Machine Operator Automatic sections, to include bisected fimbria, are submitted in B1-B2. RENETTA Garcia (ASCP) 06/27/2019 8:24 AM End of Report [facility] 06/26/2019 16:5 9 EDT 06/26/2019 16:59 EDT us Cheryl Still MD PATHOLOGY ORDERABLES Final Resul t [facility] [address] [place] [address] documented in this encounter Visit Diagnoses Not on filedocumented in this encounter Care Teams Boulevard Glassware Replacer Relationship Specialty Start Date End Date Unknown, Provider, PCP - General 05/20/11 06/27/19 documented as of this encounter
--- OUTSIDE RECORDS SUMMARY | 2024-10-25 22:04 | XMS_ITS | Encounter Summary ---
[place] [address] Care Team Providers Care Lamp Replacer Name Role Phone Palmira Hartley APRN Primary Care Provider [phone] Encounter Details Date Type Department Care Team (Late st Contact Info) Description 07/19/2023 Telephone [place] [phone] Katia Ordaz RN Social History Tobacco Use Types Packs/Day Years Used Date Smoking Tobacco: Former Cigarettes e-Cigarettes Smokeless Tobacco: Never Alcohol Use Standard Drinks/Week Comments Yes 2 (1 standard drink = 0.6 oz pur e alcohol) twisted tea x2/daily [facility] Inpatient Questions Answer Date Recorded [...] Telephone Encounter - Katia Ordaz RN - 07/19/2023 3:00 PM EDTSummary: RN called patient to alert to prescription sent to pharmacy. RN called patient to alert to prescription sent to pharmacy. Patient to call if additional assistance needed. documented in this encounter Plan of Treatment Not on file documented as of this encounter Visit Diagnoses Not on filedocumented in this encounter Care Teams Lamp Replacer Relationship Specialty Start Date End Date Palmira Hartley APRN [address] [place] [address] PCP - General Family Medicine 02/25/22 documented as of this encounter
--- OUTSIDE RECORDS SUMMARY | 2024-10-25 22:04 | XMS_ITS | Encounter Summary ---
Author Organization [facility] Address [address] [place] [address] Care Team Providers Care Diesel Instructor Name Role Phone Unknown, Provider Primary Care Provider Juany Reeves Primary Care Provider Un available Encounter Details Date Type Department Care Team (Late st Contact Info) Description 10/28/2016 Historical Results Only [facility] Lab - Main [address] [id number] Ellyn Quarles MD [address] [place] [address], [address] [place] [address] Social History Tobacco Use Types [...] Associated Diagnosis Comments CREATININE, URINE RANDOM Routine 10/28/2016 8:40 EST documented in this encounter Results * CREATININE, URINE RANDOM (10/28/2016 8:40 EST) URINE CREATININE RANDOM - [facility] 124.00 30 - 125 mg/dL 10/28/2016 9:24 EST [facility] 10/28/2016 8:40 EST 10/28/2016 8:51 EST Narrative [facility] - 10/28/2016 10:58 EST Does PT Have a Latex Allergy? NO us Ellyn Quarles MD URINALYSIS ORDERABLES Final Res ult [facility] documented in this encounter Visit Diagnoses Not on filedocumented in this encounter Care Teams Diesel Instructor Relationship Specialty Start Date End Date Unknown, Provider, PCP - General 05/20/11 06/27/19 Juany Landon ARNP [address] [address] PCP - General 06/28/19 documented as of this encounter
--- OUTSIDE RECORDS SUMMARY | 2024-10-25 22:04 | XMS_ITS | Encounter Summary ---
Author Organization [facility] Address [address] [place] [address] Care Team Providers Care Hand Glass Cutter Name Role Phone Unknown, Provider Primary Care Provider Unava ilable Encounter Details Date Type Department Care Team (Latest Contact Info) Description 06/26/2019 15:52 EDT - 06/26/2019 23:59 EDT Hospital Encounter [address] [address] Unknown, Provider, Discharge Disposition: Home or Self [...] Code Departure Means Destination Home or Self Group Home documented in this encounter Plan of Treatment Not on file documented as of this encounter Visit Diagnoses Not on filedocumented in this encounter Care Teams Hand Glass Cutter Relationship Specialty Start Date End Date Unknown, ProviderMD PCP - General 05/20/11 06/27/19 documented as of this encounter
--- OUTSIDE RECORDS SUMMARY | 2024-10-25 22:04 | XMS_ITS | Encounter Summary ---
[place] [address] Care Team Providers Care Fruit Raiser Name Role Phone Palmira Hartley APRN Primary Care Provider [phone] Encounter Details Date Type Department Care Team (Late st Contact Info) Description 06/27/2023 [place] [phone] Maral Damico Social History Tobacco Use Types Packs/Day Years Used Date Smoking Tobacco: Former Cigarettes Smokeless Tobacco: Never Sex and Gender Information Value Date Recorded Sex Assigned at Not on file Gender Identity Not on file Sexual Orientation Not on file documented as of this encounter Miscellaneous Notes * Telephone Encounter - Maral Arevalo - 06/27/2023 9:03 AM EDT NURSES PLEASE CALL PATIENT IN REGARDS TO A MEDICATION QUESTION. SHE IS ON A MEDICATION THAT HAS STUDIES OF VOMITTING UNDER ANESTHESIA AND HER PCP WANTS HER TO STOP IT BUT SHE WANTS TO CONFIRM FOR HOWLONG PRIOR. PLEASE CALL RONAL. THANKS! documented in this encounter Plan of Treatment Not on file documented as of this encounter Visit Diagnoses Not on filedocumented in this encounter Care Teams Fruit Raiser Relationship Specialty Start Date End Date Palmira Hartley APRN [address] [place] [address] PCP - General Family Medicine 02/25/22 documented as of this encounter
--- OUTSIDE RECORDS SUMMARY | 2024-10-25 22:04 | XMS_ITS | Encounter Summary ---
[place] [address] Care Team Providers Care Specimen Preparation Assistant Name Role Phone Palmira Hartley APRN Primary Care Provider Encounter Details Date Type Department Care Team (Late st Contact Info) Description 07/14/2023 Telephone [place] [phone] Katia Ordaz RN Social History Tobacco Use Types Packs/Day Years Used Date Smoking Tobacco: Former Cigarettes e-Cigarettes Smokeless Tobacco: Never Alcohol Use Standard Drinks/Week Comments Yes 2 (1 standard drink = 0.6 oz pur e alcohol) twisted tea x2/daily [facility] Inpatient Questions Answer Date Recorded [...] Encounter - Katia Ordaz RN - 07/14/2023 3:14 PM EDTSummary: RN Returned call to patient requesting stronger pain medication following surgery. RN Returned call to patient requesting stronger pain medication following surgery. Informed would relay message and call back when response known. documented in this encounter Plan of Treatment Not on file documented as of this encounter Visit Diagnoses Not on filedocumented in this encounter Care Teams Specimen Preparation Assistant Relationship Specialty Start Date End Date Palmira Hartley APRN [address] [place] [address] PCP - General Family Medicine 02/25/22 documented as of this encounter
--- OUTSIDE RECORDS SUMMARY | 2024-10-25 22:04 | XMS_ITS | Encounter Summary ---
Author Organization [facility] Address [address] [place] [address] Care Team Providers Care Case Consultant Name Role Phone Unknown, Provider Primary Care Provider Juany Reeves Primary Care Provider Un available Encounter Details Date Type Department Care Team (Late st Contact Info) Description 10/14/[address] [facility] Lab - Main [address] [place] [address] Mitzi Wiley MD [address] [place] [address]-, [address] [place] [address] Social History Tobacco Use Types [...] COMPLETE BLOOD COUNT WITH DIFFERENTIAL (AUTO) Routine 10/14/2016 12:45 EST URIC ACID Routine 10/14/2016 12:45 EST COMPREHENSIVE METABOLIC PANEL (CMP) Routine 10/14/2016 12:45 EST PROTEIN/CREATININE RATIO, URINE Routine 10/14/2016 10:59 EST documented in this encounter Results * (ABNORMAL) URIC ACID (10/14/2016 12:45 EST) Pathologist [facility] URIC ACID - [facility] 2.4(L) 2.6 - 7.2 mg/dl 10/14/2016 13:10 [facility] 10/14/2016 12:4 5 EST 10/14/2016 12:45 EST Narrative [facility] - 10/14/2016 13:10 EST ORDERED ROUT, NURSE WANTED STAT AFTER PATIENT DRAWN. COMMENTS: Preg 33.6 with elevated BP Does PT Have a Latex Allergy? NO us Mitzi Wiley MD CHEMISTRY & BLOOD GAS ORDERAB LES Final Result [facility] * (ABNORMAL) COMPREHENSIVE METABOLIC PANEL (CMP) (10/14/2016 12:45 EST) [facility] Albumin % 2.5(L) 3.4 - 5.0 g/dL 10/14/2016 13:10 [facility] ALKALINE PHOSPHATASE - [facility] 101 41 - 126 U/L 10/14/2016 13:10 [facility] BILIRUBIN TOTAL 0.2 0.0 - 1.0 mg/dL 10/14/2016 13:10 [facility] BUN - [facility] 6(L) 7 - 18 mg/dL 10/14/2016 13:10 [facility] CALCIUM - [facility] 8.8 8.5 - 10.1 mg/dL 10/14/2016 13:10 [facility] Chloride 105 98 - 107 mEq/L 10/14/2016 13:10 [facility] CO2 Total 22 21 - 32 mEq/L 10/14/2016 13:10 [facility] CREATININE 0.45(L) 0.5 - 1.3 mg/dL 10/14/2016 13:10 [facility] eGFR >60 10/14/2016 13:10 [facility] Comment: Chronic renal impairment is defined as GFR <60 Multiply result by 1.210 for patients. eGFR calculated using the IDMS-traceable MDRD Study Equation. ??(effective 08/25/2014) Anion Gap 11 5 - 15 10/14/2016 13:10 [facility] GLUCOSE - [facility] 79 70 - 100 mg/dL 10/14/2016 13:10 [facility] Potassium 3.9 3.5 - 5.0 mEq/L 10/14/2016 13:10 [facility] Sodium 138 135 - 145 mEq/L 10/14/2016 13:10 [facility] TOTAL PROTEIN - [facility] 5.9(L) 6.4 - 8.2 gm/dl 10/14/2016 13:10 [facility] SGOT/AST - [facility] 14 10 - 37 U/L 10/14/2016 13:10 [facility] SGPT/ALT - [facility] 15 12 - 78 U/L 10/14/2016 13:10 [facility] 10/14/2016 12:4 5 EST 10/14/2016 12:45 EST [facility] - 10/14/2016 13:10 EST ORDERED ROUT, NURSE WANTED STAT AFTER PATIENT DRAWN. COMMENTS: Preg 33.6 with elevated BP Does PT Have a Latex Allergy? NO us Mitzi Wiley MD CHEMISTRY & BLOOD GAS ORDERAB LES Final Result [facility] * (ABNORMAL) COMPLETE BLOOD COUNT WITH DIFFERENTIAL (AUTO) (10/14/2016 12:45 EST) ABSOLUTE NEUTROPHIL COUN - [facility] 9.29(H) 1.7 - 7.0 10e3/ul 10/14/2016 12:51 [facility] BASO # - [facility] 0.02 0.0 - 0.3 10e3/uL 10/14/2016 12:51 [facility] BASO % - [facility] 0 0 - 2 % 10/14/2016 12:51 [facility] EOS # - CV 0.16 0.05 - 0.5 10e3/uL 10/14/2016 12:51 [facility] EOS % - [facility] 1 0 - 5 % 10/14/2016 12:51 [facility] GRAN % - [facility] 70 40 - 80 % 10/14/2016 12:51 [facility] HEMATOCRIT - CV 33.9(L) 34.0 - 47.0 % 10/14/2016 12:51 [facility] HEMOGLOBIN - CV 11.6 11.2 - 15.7 g/dl 10/14/2016 12:51 [facility] IG# - [facility] 0.13(H) 0 - 0.07 10e3/uL 10/14/2016 12:51 [facility] IG% - [facility] 1.0(H) 0 - 0.9 % 10/14/2016 12:51 [facility] LYMPH # - [facility] 2.84 0.9 - 2.9 10e3/uL 10/14/2016 12:51 [facility] LYMPH% - [facility] 21 20 - 40 % 10/14/2016 12:51 [facility] MEAN CORPUSCULAR HGB - CV 29.6 26 - 34 pg 10/14/2016 12:51 [facility] MEAN CORPUSCULAR HGB CONC - CV 34.2 31 - 36 g/dL 10/14/2016 12:51 [facility] MEAN CELL VOLUME - [facility] 86.5 77 - 100 fl 10/14/2016 12:51 [facility] MONO # - [facility] 0.87 0.3 - 0.9 10e3/uL 10/14/2016 12:51 [facility] MONO% - [facility] 7 0 - 12 % 10/14/2016 12:51 [facility] PLATELET COUNT 318 150 - 400 10e3/ul 10/14/2016 12:51 [facility] RED BLOOD COUNT - [facility] 3.92 3.8 - 5.2 10e6/ul 10/14/2016 12:51 [facility] RED CELL DISTRI WIDTH - [facility] 13.1 11.8 - 15.6 % 10/14/2016 12:51 [facility] WHITE BLOOD COUNT - [facility] 13.3(H) 3.5 - 10.5 10e3/ul 10/14/2016 12:51 EST [facility] 10/14/2016 12:4 5 EST 10/14/2016 12:46 EST Narrative [facility] - 10/14/2016 12:51 EST COMMENTS: Preg 33.6 with elevated BP Does PT Have a Latex Allergy? NO Mitzi Wiley MD HEMATOLOGY & PF4 ORDERABLES F inal Result Performing Organization Address City/[facility]/ZIP Co de Phone Number [facility] * PROTEIN/CREATININE RATIO, URINE (10/14/2016 10:59 EST) URINE PROTEIN: CREAT RATIO - [facility] 0.179 0 - 0.2 10/14/2016 14:56 EST [facility] 10/14/2016 10:5 9 EST 10/14/2016 14:11 EST Mitzi Wiley MD URINALYSIS ORDERABLES Final R esult [facility] documented in this encounter Visit Diagnoses Not on filedocumented in this encounter Care Teams Case Consultant Relationship Specialty Start Date End Date Unknown, Provider, PCP - General 05/20/11 06/27/19 Juany Landon ARNP [address] [address] PCP - General 06/28/19 documented as of this encounter
--- OUTSIDE RECORDS SUMMARY | 2024-10-25 22:04 | XMS_ITS | Encounter Summary ---
[place] [address] Care Team Providers Care Chemical Preparer Name Role Phone Palmira Hartley APRN Primary Care Provider [phone] Encounter Details Date Type Department Care Team (Late st Contact Info) Description 07/19/2023 Telephone [place] [phone] Katia Ordaz RN Social History Tobacco Use Types Packs/Day Years Used Date Smoking Tobacco: Former Cigarettes e-Cigarettes Smokeless Tobacco: Never Alcohol Use Standard Drinks/Week Comments Yes 2 (1 standard drink = 0.6 oz pur e alcohol) twisted tea x2/daily [facility] Inpatient Questions Answer Date Recorded Does Anyone [...] Encounter - Katia Ordaz RN - 07/19/2023 9:25 AM EDTSummary: RN Returned call to patient requesting additional pain medication. RN Returned call to patient requesting additional pain medication. Patient informs pain is impairing sleep. RN informed would relay to provider. Patient to await call back. documented in this encounter Plan of Treatment Not on file documented as of this encounter Visit Diagnoses Not on filedocumented in this encounter Care Teams Chemical Preparer Relationship Specialty Start Date End Date Palmira Hartley APRN [address] [place] [address] PCP - General Family Medicine 02/25/22 documented as of this encounter
--- OUTSIDE RECORDS SUMMARY | 2024-10-25 22:04 | XMS_ITS | Encounter Summary ---
Author Organization [facility] Address [address] [place] [address] Care Team Providers Care Experience Designer Name Role Phone Juany Landon Primary Care Provider Un available Reason for Visit * Reason Onset Date Comments Other 09/02/2019 needs all vacina tions for her new job. Encounter Details Date Type Department Care Team (Late st Contact Info) Description 09/02/[address] [facility] [address] [place], [place] [id number] Queta Tiwari MD [address] [facility], [address] [place] [address] Other (needs all vacinations for her new job. ) Social History Tobacco Use Types Packs/Day Years Used Date Smoking Tobacco: Never Assessed Comments Unknown Sex and Gender Information Value Date Recorded Sex Assigned at Not on file Legal Sex Female 18:53 EST Gender Identity Not on file Sexual Orientation Not on file documented as of this encounter Miscellaneous Notes * Telephone Encounter - Genevieve Farooq RN - 09/02/2019 1706 EST L/M for pt to call her PCP in regards to her questions. documented in this encounter Plan of Treatment Not on file documented as of this encounter Visit Diagnoses Not on filedocumented in this encounter Care Teams Experience Designer Relationship Specialty Start Date End Date Juany Landon ARNP [address] [address] PCP - General 06/28/19 documented as of this encounter
--- OUTSIDE RECORDS SUMMARY | 2024-10-25 22:04 | XMS_ITS | Encounter Summary ---
Author Organization [facility] Address [address] [place] [address] Care Team Providers Care Geotechnicial Properties Technician Name Role Phone Unknown, Provider Primary Care Provider Juany Reeves Primary Care Provider Un available Encounter Details Date Type Department Care Team (Late st Contact Info) Description 11/11/2016 Historical Results Only [facility] Lab - Main [address] [address] Mitzi Wiley MD [address] [place] [address], [address] [place] [address] Social History Tobacco Use Types [...] Procedure Name Priority Date/Time Associated Diagnosis Comments TYPE AND SCREEN Routine 11/11/2016 0:05 EST documented in this encounter Results * TYPE AND SCREEN (11/11/2016 0:05 EST) [facility] BLOOD TYPE [facility] A Positive [facility] Antibody Screen NEGATIVE [facility] Comment: PATIENT'S RESPONSES INDICATE A HISTORY OF SURGERY, TRANSFUSION OR WITHIN THE LAST 3 MONTHS. FOR BLOOD PRODUCTS, THIS SPECIMEN WILL OUTDATE 72 HOURS FROM THE TIME IT WAS COLLECTED. ??ANY BLOOD PRODUCTS ORDERED AFTER 72 HOURS MUST BE WORKED UP ON A NEW SPECIMEN. Specimen Expires: 11-14-16 [id number] [facility] 11/11/2016 0:05 EST 11/11/2016 0:09 EST Narrative [facility] - 11/10/2016 23:43 EST Does PT Have a Latex Allergy? NO IS THIS A PREOPERATIVE PATIENT? Y IF YES, DATE OF SURGERY: 11/10/16 Mitzi Wiley MD BLOOD BANK TESTS Final Result [facility] documented in this encounter Visit Diagnoses Not on filedocumented in this encounter Care Teams Geotechnicial Properties Technician Relationship Specialty Start Date End Date Unknown, Provider, PCP - General 05/20/11 06/27/19 Juany Landon ARNP [address] [address] PCP - General 06/28/19 documented as of this encounter
--- OUTSIDE RECORDS SUMMARY | 2024-10-25 22:04 | XMS_ITS | Encounter Summary ---
[place] [address] Care Team Providers Care Garde Manager Name Role Phone Palmira Hartley APRN Primary Care Provider [phone] Encounter Details Date Type Department Care Team (Late st Contact Info) Description 07/17/2023 Telephone [facility] [place] [phone] Farzaneh Palomino RN Social History Tobacco Use Types Packs/Day [...] on filedocumented in this encounter Care Teams Garde Manager Relationship Specialty Start Date End Date Palmira Hartley APRN [address] [place] [address] PCP - General Family Medicine 02/25/22 documented as of this encounter
--- OUTSIDE RECORDS SUMMARY | 2024-10-25 22:04 | XMS_ITS | Encounter Summary ---
Author Organization [facility] Address [address] [place] [address] Care Team Providers Care Plush Finisher Name Role Phone Unknown, Provider Primary Care Provider Juany Reeves Primary Care Provider Un available Encounter Details Date Type Department Care Team (Late st Contact Info) Description 09/19/2016 Historical Results Only [facility] Radiology Results [address] [place], [place] [phone] Ludivina Callejas, [employer] [address] [facility], [address] [place] [address] Social History Tobacco Use Types [...] Date/Time Associated Diagnosis Comments US OB FOLLOWUP 09/19/2016 9:52 EST documented in this encounter Results * US OB FOLLOWUP (09/19/2016 9:52 EST) Anatomical Region Laterality Modality Pelvis Other 09/19/2016 9:52 EST Narrative 09/21/2016 10:52 EST ? EXAM: ULTRASOUND/OB LEVEL 2 FOLLOW UP ? EX. D/ (0952) ? CLINICAL INFORMATION: ? SIZE greater DATES ? Z33.1 ? See attached report. ??Report also available in PACS. ? [email or web address] ?Reported By: Rob Palma MD ? CC: ? Transcribed Date/Time: 09/21/2016 (1052) ? Manager Respiratory Care: OVIDIO ? Printed Date/Time: 04/06/2019 (0008) ? PAGE 1 ? Signed Report ? Procedure Note Rob Palma E - 08/28/2019 EXAM: ULTRASOUND/OB LEVEL 2 FOLLOW UP EX. D/ (0952) CLINICAL INFORMATION: SIZE greater DATES Z33.1 See attached report. Report also available in PACS. [email or web address] Reported By: Rob Palma MD CC: Transcribed Date/Time: 09/21/2016 (1052) Manager Respiratory Care: OVIDIO Printed Date/Time: 04/06/2019 (0008) PAGE 1 Signed Report us Ludivina Callejas [employer] IMG US OB ORDERABLES Final Re sult documented in this encounter Visit Diagnoses Not on filedocumented in this encounter Care Teams Plush Finisher Relationship Specialty Start Date End Date Unknown, Provider, PCP - General 05/20/11 06/27/19 Juany Landon ARNP [address] [place] [address] PCP - General 06/28/19 documented as of this encounter
--- OUTSIDE RECORDS SUMMARY | 2024-10-25 22:04 | XMS_ITS | Encounter Summary ---
Author Organization [facility] Address [address] [place] [address] Care Team Providers Care Line Service Technician Name Role Phone Unknown, Provider Primary Care Provider Unava ilable Encounter Details Date Type Department Care Team (Latest Contact Info) Description 09/19/2016 6:17 EST - 09/19/2016 23:59 EST Hospital Encounter [facility] [address] [place] [address] Unknown, Provider, Discharge Disposition: Home or Self [...] Code Departure Means Destination Home or Self Fpc documented in this encounter Plan of Treatment Not on file documented as of this encounter Visit Diagnoses Not on filedocumented in this encounter Care Teams Line Service Technician Relationship Specialty Start Date End Date Unknown, Provider, PCP - General 05/20/11 06/27/19 documented as of this encounter
--- OUTSIDE RECORDS SUMMARY | 2024-10-25 22:04 | XMS_ITS | Clinical Summary ---
Author Organization [facility] [place] [address] Care Team Providers Care Market Specialist Name Role Phone Palmira Hartley APRN Primary Care Provider [phone] Allergies Active Allergy Reactions Criticality Noted Date Comments Sulfamethoxazole-Trimethoprim 2021 Sulfa (Sulfonamide Antibiotics) 0 03/2022 Medications Medication Sig Dispensed Refills Start Date End Date Status Vyvanse 40 mg Capsule Take 1 capsule by mouth daily. 10/05/2021 Active Wegovy 2.4 mg/0.75 mL Pen Injector 05/29/2023 Active dextroamphetamine-amph etamine (Adderall) 5 mg tablet 01/10/2023 Active oxyCODONE (Roxicodone) 5 mg/5 mL Solution Take 5 mLs by mouth every 4 hours as needed for Pain. 50 mL 07/19/2023 Active Active Problems Problem Noted Date Diagnosed Date Alopecia areata 11/13/2012 Social History Tobacco Use Types Packs/Day Years [...] on file Sexual Orientation Not on file Last Filed Vital Signs Vital Sign Reading Time Taken Comments Blood Pressure 128/87 07/14/2023 11:30 AM EDT Pulse 73 07/14/2023 11:30 AM EDT Temperature 36.5 ??C (97.7 ??F) 07/14/2023 11:00 AM E DT Respiratory Rate 18 07/14/2023 11:15 AM EDT Oxygen Saturation 95% 07/14/2023 11:30 AM EDT Inhaled Oxygen Concentration - - Weight 107 kg (236 lb) 08/07/2023 3:39 PM EDT Height 172.7 cm (5' 8) 08/07/2023 3:39 PM EDT Body Mass Index 35.88 08/07/2023 3:39 PM EDT Plan of Treatment Health Maintenance Due Date Last Done Comments HIV screen 01/23/2002 Hepatitis C Screening 01/23/2002 Lipid Screening 01/23/2002 Hepatitis B vaccine (0-59 yrs) (1) 01/23/2003 Tetanus/Diphtheria/Pertussis Vaccines (1 - Tdap) 01/23 HPV test 01/23/2014 PAP Smear 01/23/2014 Breast Cancer Share Decision Needed 2024 Breast Cancer screening 2024 Diabetes Screening (HgbA1C or Glucose) 2024 Covid-19 Vaccine ( season) 2024 Influenza (Flu) vaccine (1 o f 1 - Influenza standard series) 06/23/2024 Care Teams Market Specialist Relationship Specialty Start Date End Date Palmira Hartley APRN [address] [place] [address] PCP - General Family Medicine 02/25/22
--- OUTSIDE RECORDS SUMMARY | 2024-10-25 22:04 | XMS_ITS | Encounter Summary ---
Author Organization [facility] [place] [address] Care Team Providers Care Drawbench Operator Name Role Phone NaeemPalmira FLORENTINO Primary Care Provider [phone] Reason for Visit * Reason Onset Date Comments Medication Refill 07/17/2023 Encounter Details Date Type Department Care Team (Late st Contact Info) Description 07/17/2023 Refill [place] [address] Isabelle Salmon MD [facility] [place] [address] Social History Tobacco Use Types Packs/Day Years Used Date Smoking Tobacco: Former Cigarettes e-Cigarettes Smokeless Tobacco: Never Alcohol Use Standard Drinks/Week Comments Yes 2 (1 standard drink = 0.6 oz pur e alcohol) twisted tea x2/daily [facility] In[facility] Questions Answer Date Recorded Does [...] on filedocumented in this encounter Care Teams Drawbench Operator Relationship Specialty Start Date End Date Palmira Hartley APRN [address] [place] [address] PCP - General Family Medicine 02/25/22 documented as of this encounter
--- OUTSIDE RECORDS SUMMARY | 2024-10-25 22:04 | XMS_ITS | Encounter Summary ---
[place] [address] Care Team Providers Care Urologist Physician Name Role Phone Palmira Hartley APRN Primary Care Provider [phone] Encounter Details Date Type Department Care Team (Late st Contact Info) Description 06/28/2023 Telephone [place] [phone] Katia Odraz RN Social History Tobacco Use Types Packs/Day Years Used Date Smoking Tobacco: Former Cigarettes Smokeless Tobacco: Never Sex and Gender Information Value Date Recorded Sex Assigned at Not on file Gender Identity Not on file Sexual Orientation Not on file documented as of this encounter Miscellaneous Notes * Telephone Encounter - Katia Ordaz RN - 06/28/2023 9:24 AM EDTSummary: RN returned call to patient with question regarding medication use prior to surgery. RN returned call to patient with question regarding medication use prior to surgery. Patient takes Wegovy, and has learned this can cause vomiting under anesthesia. Her PCP is asking for recommendation as to hold time prior to surgery. RN informed patient to follow provider guidance, and plan to seek clarification from anesthesiology. documented in this encounter Plan of Treatment Not on file documented as of this encounter Visit Diagnoses Not on filedocumented in this encounter Care Teams Urologist Physician Relationship Specialty Start Date End Date Palmira Hartley APRN [address] [place] [address] PCP - General Family Medicine 02/25/22 documented as of this encounter
--- OUTSIDE RECORDS SUMMARY | 2024-10-25 22:04 | XMS_ITS | Encounter Summary ---
Author Organization [facility] Address [address] [place] [address] Care Team Providers Care Outside Laborer Name Role Phone DipeshJuany OLLIE Primary Care Provider Un available Encounter Details Date Type Department Care Team (Late st Contact Info) Description 03/02/2021 Lab Requisition [facility] Pathology & Laboratory Medicine - [address] [address] Outr Resulting Lab, Provider Social History Tobacco Use Types Packs/Day Years [...] Procedure Name Priority Date/Time Associated Diagnosis Comments ZZCOVID-19 TEST [facility] PCR Today 03/01/2021 10:05 EDT COVID-19 TESTING Routine 03/01/2021 10:0 5 EDT documented in this encounter Results * COVID-19 TEST [facility] PCR (03/01/2021 10:05 EDT) Swab ENTIRE NASOPHARYNX / Unknown 03/01/2021 10:05 EDT 03/02/2021 16:14 EDT us Provider Outr Resulting Lab MICROBIOLOGY - GENER AL ORDERABLES Final Result Performing Organization Address City/State/[facility] Co de Phone Number [facility] [address] [place] [address] * COVID-19 TESTING (03/01/2021 10:05 EDT) COVID-19 rt-PCR Result Negative Negative 03/03/2021 16:01 EDT [facility] Comment: This test has not been FDA cleared or approved. This test has been authorized by FDA under an EUA for use by authorized laboratories. This test has been authorized only for detection of nucleic acid from 2019-nCoV, not for any other viruses or pathogens. This test is only authorized for the duration of the declaration that circumstances exist justifying the authorization of emergency use of in vitro diagnostic tests for detection and/or diagnosis of 2019-nCoV under section 564(b)(1) of Act, 21 U.S.C ?? 360bbb-3(b) (1), unless the authorization is terminated or revoked sooner. Negative results do not preclude 2019-nCoV infection and should not be used as the sole basis for treatment or other patient management decisions. Negative results must be combined with clinical observations, patient history, and epidemiological information. This test was developed and its performance characteristics determined by [facility]. It has not been cleared or approved by the US Food and Drug Administration. FDA does not require this test to go through premarket FDA review. This test is used for clinical purposes. It should not be regarded as investigational or for research. This laboratory is certified under the Clinical Laboratory Improvement Amendments (CLIA) as qualified to perform high complexity clinical laboratory testing. This test is based on the [facility] COVID-19 Emergency Use Authorization (EUA) assay, with minor modification as defined by the FDA Performed on the Pixowl 7 Pro RT-PCR System. Performing Lab [facility] 03/03/2021 16:01 EDT [facility] Swab 03/01/2021 10:0 5 EDT 03/02/2021 16:14 EDT Provider Outr Resulting Lab MICROBIOLOGY - GENER AL ORDERABLES Final Result [facility] [address] [place] [address] documented in this encounter Visit Diagnoses Not on filedocumented in this encounter Care Teams Outside Laborer Relationship Specialty Start Date End Date Juany Landon ARNP [address] [address] PCP - General 06/28/19 documented as of this encounter
--- OUTSIDE RECORDS SUMMARY | 2024-10-25 22:04 | XMS_ITS | Encounter Summary ---
Author Organization [facility] Address [address] [place] [address] Care Team Providers Care Double Reamer Operator Name Role Phone Unknown, Provider Primary Care Provider Juany Reeves Primary Care Provider Un available Encounter Details Date Type Department Care Team (Late st Contact Info) Description 09/02/2016 Historical Results Only [facility] - Main [address] [id number] Ellyn Quarles MD [address] [place] [address], [address] [place] [address] Social History Tobacco Use Types [...] Procedure Name Priority Date/Time Associated Diagnosis Comments [facility] - CV Routine 09/02/2016 12 :44 EST HEMOGLOBIN - [facility] Routine 09/02/2016 12: 44 EST documented in this encounter Results * [facility] - CV (09/02/2016 12:44 EST) ONE H[facility] - CV 127 88 - 139 mg/dL 09/02/2016 13:57 EST [facility] Comment: ACOG RECOMMENDED GUIDELINES Greater than or equal to ??140 mg/dL suspect gestational diabetes. ?? Recommend confirmation with 3 hr GTT 09/02/2016 12:4 4 EST 09/02/2016 12:44 EST Narrative [facility] - 09/02/2016 13:57 EST Does PT Have a Latex Allergy? NO us Ellyn Quarles MD CHEMISTRY & BLOOD GAS ORDERABLE S Final Result [facility] * [facility] (09/02/2016 12:44 EST) [facility] 11.6 11.2 - 15.7 g/dl 09/02/2016 13:40 EST [facility] 09/02/2016 12:4 4 EST 09/02/2016 12:44 EST Narrative [facility] - 09/02/2016 13:40 EST Does PT Have a Latex Allergy? NO us Ellyn Quarles MD HEMATOLOGY & PF4 ORDERABLES Fin al Result [facility] documented in this encounter Visit Diagnoses Not on filedocumented in this encounter Care Teams Double Reamer Operator Relationship Specialty Start Date End Date Unknown, Provider, PCP - General 05/20/11 06/27/19 Juany Landon ARNP [address] [address] PCP - General 06/28/19 documented as of this encounter
--- OUTSIDE RECORDS SUMMARY | 2024-10-25 22:04 | XMS_ITS | Encounter Summary ---
Author Organization [facility] Address [address] [place] [address] Care Team Providers Care Tooth Cutter Name Role Phone Unknown, Provider Primary Care Provider Juany Reeves Primary Care Provider Un available Encounter Details Date Type Department Care Team (Late st Contact Info) Description 10/07/2016 Historical Results Only [facility] - Main [address] [id number] Barbra Regan MD [address] [facility] [address] [place] [address] Social History Tobacco Use Types Packs/Day Years [...] Procedure Name Priority Date/Time Associated Diagnosis Comments PROTEIN/CREATININE RATIO, URINE Routine 10/07/2016 11:50 EST COMPLETE BLOOD COUNT WITH DIFFERENTIAL (AUTO) Routine 10/07/2016 11:20 EST [facility] Routine 10/07/2016 11:20 EST COMPREHENSIVE METABOLIC PANEL (CMP) Routine 10/07/2016 11:20 EST documented in this encounter Results * PROTEIN/CREATININE RATIO, URINE (10/07/2016 11:50 EST) URINE PROTEIN: CREAT RATIO - [facility] 0.151 0 - 0.2 10/07/2016 12:26 EST [facility] 10/07/2016 11:5 0 EST 10/07/2016 12:00 EST Narrative [facility] - 10/07/2016 12:26 EST Does PT Have a Latex Allergy? NO Barbra Regan MD URINALYSIS ORDERABLES Final Re sult [facility] * [facility] (10/07/2016 11:20 EST) [facility]DH - [facility] 155 100 - 190 U/L 10/07/2016 11:50 [facility] 10/07/2016 11:2 0 EST 10/07/2016 11:27 EST Narrative [facility] - 10/07/2016 11:50 EST Does PT Have a Latex Allergy? NO Barbra Regan MD CHEMISTRY & BLOOD GAS ORDERABL ES Final Result Performing Organization Address City/[facility]/ZIP Co de Phone Number [facility] * (ABNORMAL) COMPREHENSIVE METABOLIC PANEL (CMP) (10/07/2016 11:20 EST) [facility] Albumin % 2.5(L) 3.4 - 5.0 g/dL 10/07/2016 11:50 [facility] ALKALINE PHOSPHATASE - [facility] 95 41 - 126 U/L 10/07/2016 11:50 [facility] BILIRUBIN TOTAL 0.1 0.0 - 1.0 mg/dL 10/07/2016 11:50 [facility] BUN - [facility] 7 7 - 18 mg/dL 10/07/2016 11:50 [facility] CALCIUM - [facility] 8.6 8.5 - 10.1 mg/dL 10/07/2016 11:50 [facility] Chloride 105 98 - 107 mEq/L 10/07/2016 11:50 [facility] CO2 Total 23 21 - 32 mEq/L 10/07/2016 11:50 [facility] CREATININE 0.46(L) 0.5 - 1.3 mg/dL 10/07/2016 11:50 [facility] eGFR >60 10/07/2016 11:50 [facility] Comment: Chronic renal impairment is defined as GFR <60 Multiply result by 1.210 for patients. eGFR calculated using the IDMS-traceable MDRD Study Equation. ??(effective 08/25/2014) Anion Gap 11 5 - 15 10/07/2016 11:50 [facility] GLUCOSE - [facility] 81 70 - 100 mg/dL 10/07/2016 11:50 [facility] Potassium 3.5 3.5 - 5.0 mEq/L 10/07/2016 11:50 [facility] Sodium 139 135 - 145 mEq/L 10/07/2016 11:50 [facility] TOTAL PROTEIN - [facility] 6.4 6.4 - 8.2 gm/dl 10/07/2016 11:50 [facility] SGOT/AST - [facility] 13 10 - 37 U/L 10/07/2016 11:50 [facility] SGPT/ALT - [facility] 15 12 - 78 U/L 10/07/2016 11:50 [facility] 10/07/2016 11:2 0 EST 10/07/2016 11:27 EST [facility] - 10/07/2016 11:50 EST Does PT Have a Latex Allergy? NO us Barbra Regan MD CHEMISTRY & BLOOD GAS ORDERABL ES Final Result [facility] * (ABNORMAL) COMPLETE BLOOD COUNT WITH DIFFERENTIAL (AUTO) (10/07/2016 11:20 EST) ABSOLUTE NEUTROPHIL COUN - [facility] 8.99(H) 1.7 - 7.0 10e3/ul 10/07/2016 11:31 [facility] BASO # - [facility] 0.02 0.0 - 0.3 10e3/uL 10/07/2016 11:31 [facility] BASO % - [facility] 0 0 - 2 % 10/07/2016 11:31 [facility] EOS # - [facility] 0.14 0.05 - 0.5 10e3/uL 10/07/2016 11:31 [facility] EOS % - [facility] 1 0 - 5 % 10/07/2016 11:31 [facility] GRAN % - [facility] 72 40 - 80 % 10/07/2016 11:31 [facility] HEMATOCRIT - [facility] 32.4(L) 34.0 - 47.0 % 10/07/2016 11:31 [facility] HEMOGLOBIN - [facility] 11.3 11.2 - 15.7 g/dl 10/07/2016 11:31 [facility] IG# - [facility] 0.12(H) 0 - 0.07 10e3/uL 10/07/2016 11:31 [facility] IG% - [facility] 1.0(H) 0 - 0.9 % 10/07/2016 11:31 [facility] LYMPH # - [facility] 2.34 0.9 - 2.9 10e3/uL 10/07/2016 11:31 [facility] LYMPH% - [facility] 19(L) 20 - 40 % 10/07/2016 11:31 [facility] MEAN CORPUSCULAR HGB - [facility] 30.0 26 - 34 pg 10/07/2016 11:31 [facility] MEAN CORPUSCULAR HGB CONC - [facility] 34.9 31 - 36 g/dL 10/07/2016 11:31 [facility] MEAN CELL VOLUME - [facility] 85.9 77 - 100 fl 10/07/2016 11:31 [facility] MONO # - [facility] 0.82 0.3 - 0.9 10e3/uL 10/07/2016 11:31 [facility] MONO% - [facility] 7 0 - 12 % 10/07/2016 11:31 [facility] PLATELET COUNT 308 150 - 400 10e3/ul 10/07/2016 11:31 [facility] RED BLOOD COUNT - [facility] 3.77(L) 3.8 - 5.2 10e6/ul 10/07/2016 11:31 EST [facility] RED CELL DISTRI WIDTH - [facility] 13.0 11.8 - 15.6 % 10/07/2016 11:31 EST [facility] WHITE BLOOD COUNT - [facility] 12.4(H) 3.5 - 10.5 10e3/ul 10/07/2016 11:31 EST [facility] 10/07/2016 11:2 0 EST 10/07/2016 11:28 EST Narrative [facility] - 10/07/2016 11:31 EST Does PT Have a Latex Allergy? NO us Barbra Regan MD HEMATOLOGY & PF4 ORDERABLES Fi nal Result [facility] documented in this encounter Visit Diagnoses Not on filedocumented in this encounter Care Teams Tooth Cutter Relationship Specialty Start Date End Date Unknown, Provider, PCP - General 05/20/11 06/27/19 Juany Landon ARNP [address] [address] PCP - General 06/28/19 documented as of this encounter
--- OUTSIDE RECORDS SUMMARY | 2024-10-25 22:05 | XMS_ITS | Encounter Summary ---
Author Organization [facility] [place] [address] Care Team Providers Care Diet Counselor Name Role Phone Palmira Hartley APRN Primary Care Provider [phone] Reason for Visit * Reason Comments Alopecia * Consultation (Routine) - Closed Specialty Diagnoses / Procedures Referred By Gregg barraza Referred To Contact Dermatology Diagnoses Nonscarring hair loss, unspecified Alopecia; Est. Patient-Notes Received Procedures Consult Palmira Hartley APRN [address] [place] [address] Po Dooley MD [address] [place] [address], [facility] [address] Referral ID Status Reason Start Date Expiration Date V isits Requested Visits Authorized [id number] Closed Consult, Test & Treat PCP Updated and/or Approved 12/28/2021 12/28/2022 12 12 Encounter Details Date Type Department Care Team (Late st Contact Info) Description 02/25/2022 1:45 PM EDT Office Visit Dermatology at [address] [address] Po Dooley MD [address] [place] [address], [facility] [address] Alopecia areata Social History Tobacco Use Types Packs/Day Years Used Date Smoking Tobacco: Former Cigarettes Smokeless Tobacco: Never Sex and Gender Information Value Date Recorded Sex Assigned at Not on file Gender Identity Not on file Sexual Orientation Not on file documented as of this encounter Progress Notes * Po Dooley MD - 02/25/2022 1:45 PM EDT Problem: 1. Follow up hair loss 2. History of alopecia areata 2012 Juany follows up and is now 37. She notes about in late November early December she developed a repeat check patch behind her right ear, on the right inferior postauricular scalp. 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 She has had no alopecia areata since I last saw her in 2012. Physical examination reveals a pleasant 37-year-old woman who has a 2.5 x 0.75 cm alopecic patch behind her right ear. There are some amin hairs that are growing out from it and extend several centimeters. Exclaimation point hairs are also present. Careful examination of the rest of her scalp shows no other areas of hairloss / alopecia areata. She has no eyebrow / eyelash or other involvement. She has a very thick head of hair on her scalp. Assessment plan: Alopecia areata localized to single alopecic patch right inferior postauricular scalp 1. Today site was injected with Kenalog 5 mg/mL 0.3 mils injected 2. Reassured patient that I expect complete resolution. 3. Discussed alopecia areata support groups online where she might obtain more information about this condition. 4. Return to clinic as needed. CC: Palmira Hartley APRN documented in this encounter Plan of Treatment Not on file documented as of this encounter Visit Diagnoses Diagnosis Alopecia areata documented in this encounter Care Teams Diet Counselor Relationship Specialty Start Date End Date Palmira Hartley APRN [address] [place] [address] PCP - General Family Medicine 02/25/22 documented as of this encounter
--- OUTSIDE RECORDS SUMMARY | 2024-10-25 22:05 | XMS_ITS | Encounter Summary ---
Author Organization [facility] [place] [address] Care Team Providers Care Wilderness Guide Name Role Phone Marcelo Sauer DO, David Primary Care Provider [phone] Reason for Visit * Reason Comments Alopecia Encounter Details Date Type Department Care Team (Late st Contact Info) Description 11/13/2012 2:00 PM EST Office Visit Dermatology [address] [facility] [address] [place], [place] [id number] Po Dooley MD [address] [place] [address] RD, [facility] [place] [address] Alopecia areata (Primary Dx) Social History Tobacco Use Types Packs/Day Years Used Date Smoking Tobacco: Never Sex and Gender Information Value Date Recorded Sex Assigned at Not on file Gender Identity Not on file Sexual Orientation Not on file documented as of this encounter Progress Notes * Po Dooley MD - 11/13/2012 2:36 PM EST Problem alopecia. Juany is a 27-year-old woman who is referred today by Tristan Robertson D.O., for evaluation and treatment as appropriate for her alopecia. She states that on two occasions now she has had punched out single localized areas of total hair loss that developed after times of stress. The first was on the left lateral parietal scalp; that was a year ago. It has totally grown back, although it first grew back with white hair, which then colored. The second and more recent site was on her right parietal scalp. Both she states were about an inch or so in diameter. The patient states that she never had any issues with her hair as a child. Her aunt apparently has a history of alopecia areata but currently is in remission. The patient states that she has thick head of hair but thinks that at the time of the alopecia areata her hair seemed to shed a lot. Physical examination reveals a pleasant 27-year-old who has thick brown hair covering her entire scalp. Today there are no areas of hair loss or hair thinning. A hair pull is negative. The scalp is free of dermatitis and scaling. She has no findings/hair loss of the eyebrows or eyelashes. She denies any loss of arm or leg or genital hair. She states that she wonders what can be done to prevent this. Assessment and Plan: Alopecia areata. a. Discussed diagnosis, pathogenesis, and etiology as we understand it. b. Given the patient's reassurance that she has actually a good prognosis, probably low chance for multiple recurrences, and explained that this will go into remission at time. For now, however, with significant stress she might experience recurrence. c. Given rapid and complete regrowth of hair following her two episodes, would not recommend today that I give her any corticosteroid cream or other topical for treatment. Explained that there really is nothing prophylactically that can be taken to prevent it. Reassured her that diet, her medical health, her shampoos all are not associated with this condition. Reassured her that she is likely to always have a mild case and doubt there will be progression towards any significant hair thinning/loss. Return to clinic p.r.n. for new lesions/concerns. Copy: Tristan oRbertson D.O. documented in this encounter Plan of Treatment Not on file documented as of this encounter Visit Diagnoses Diagnosis Alopecia areata- Primary documented in this encounter Care Teams Wilderness Guide Relationship Specialty Start Date End Date Tristan Robertson DO PCP - General 10/31/12 02/24/22 documented as of this encounter
--- OUTSIDE RECORDS SUMMARY | 2024-10-25 22:05 | XMS_ITS | Encounter Summary ---
Author Organization [facility] [place] [address] Care Team Providers Care Straddle Truck Operator Name Role Phone Palmira Hartley APRN Primary Care Provider [phone] Encounter Details Date Type Department Care Team (Latest Contact Info) Description 05/30/2023 Travel Social History Tobacco Use Types Packs/Day [...] on filedocumented in this encounter Care Teams Straddle Truck Operator Relationship Specialty Start Date End Date Palmira Hartley APRN [address] [place], [place] [address] PCP - General Family Medicine 02/25/22 documented as of this encounter
--- OUTSIDE RECORDS SUMMARY | 2024-10-25 22:05 | XMS_ITS | Encounter Summary ---
[place] [address] Care Team Providers Care Blockers Skiver Name Role Phone Palmira Hartley APRN Primary Care Provider [phone] Reason for Referral * Consultation (Routine) - Closed Specialty Diagnoses / Procedures Referred By Gregg barraza Referred To Contact Otolaryngology Diagnoses Tonsil asymmetry Palmira Hartley APRN [address] [place] [address] [facility] Otolaryngology [address] [place] [phone] Referral ID Status Reason Start Date Expiration Date V isits Requested Visits Authorized [id number] Closed Consult, Test & Treat PCP Updated and/or Approved 04/12/2023 04/12/2024 12 12 Encounter Details Date Type Department Care Team (Late st Contact Info) Description 04/19/2023 Transcribe Orders [facility]DH Incoming Referrals [phone] Palmira Hartley APRN [address] [place], [place] [id number] Tonsil asymmetry Social History Tobacco Use Types Packs/Day Years Used Date Smoking Tobacco: Former Cigarettes Smokeless Tobacco: Never Sex and Gender Information Value Date Recorded Sex Assigned at Not on file Gender Identity Not on file Sexual Orientation Not on file documented as of this encounter Plan of Treatment Scheduled Referrals Name Type Priority Associated Diagnoses Orde r Schedule Referral to ENT Outpatient Referral Routine Tonsil asymmetry Ordered: 04/19/2023 documented as of this encounter Visit Diagnoses Diagnosis 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
--- OUTSIDE RECORDS SUMMARY | 2024-10-25 22:05 | XMS_ITS | Encounter Summary ---
[place] [address] Care Team Providers Care Grocery Sacker Name Role Phone Palmira Hartley APRN Primary Care Provider [phone] Encounter Details Date Type Department Care Team (Late st Contact Info) Description 06/22/2023 Telephone [place] [id number] Maral Damico Social History Tobacco Use Types Packs/Day Years Used Date Smoking Tobacco: Former Cigarettes Smokeless Tobacco: Never Sex and Gender Information Value Date Recorded Sex Assigned at Not on file Gender Identity Not on file Sexual Orientation Not on file documented as of this encounter Miscellaneous Notes * Telephone Encounter - Maral Arevalo - 06/22/2023 9:19 AM EDT Aries, Patient is scheduled to have surgery on 07/14/2023. Follow up appointment is as follows: Not indicated in case Thank you!! documented in this encounter Plan of Treatment Not on file documented as of this encounter Visit Diagnoses Not on filedocumented in this encounter Care Teams Grocery Sacker Relationship Specialty Start Date End Date Palmira Hartley APRN [address] [place] [address] PCP - General Family Medicine 02/25/22 documented as of this encounter
--- OUTSIDE RECORDS SUMMARY | 2024-10-25 22:05 | XMS_ITS | Encounter Summary ---
Author Organization Formerly [facility] [place] [address] Care Team Providers Care Glass Grinder Name Role Phone Palmira Hartley APRN Primary Care Provider [phone] Reason for Visit * Reason Comments Other Had surgery schedule d in [place] for tonsillectomy. Has had ct scan and a layrngoscopy. Has taken 10 oral abx has done nothing for swelling of R tonsil. * Consultation (Routine) - Closed Specialty Diagnoses / Procedures Referred By Gregg barraza Referred To Contact Otolaryngology Diagnoses Tonsil asymmetry Palmira Hartley APRN [address] [place] [address] [facility] [address] [place] [phone] Referral ID Status Reason Start Date Expiration Date V isits Requested Visits Authorized [id number] Closed Consult, Test & Treat PCP Updated and/or Approved 04/12/2023 04/12/2024 12 12 Encounter Details Date Type Department Care Team (Late st Contact Info) Description 05/30/2023 10:20 AM EDT Office [place] [phone] Tito Lamb III, MD [facility] [place] [address] Tonsil asymmetry Social History Tobacco Use Types Packs/Day Years Used Date Smoking Tobacco: Former Cigarettes Smokeless Tobacco: Never Tobacco Cessation:Counseling Given: Not Answered Sex and Gender Information Value Date Recorded Sex Assigned at Not on file Gender Identity Not on file Sexual Orientation Not on file documented as of this encounter Last Filed Vital Signs Vital Sign Reading Time Taken Comments Blood Pressure - - Pulse - - Temperature - - Respiratory Rate - - Oxygen Saturation - - Inhaled Oxygen Concentration - - Weight 106.2 kg (234 lb 1.6 oz) 023 10:11 AM EDT Height 172.7 cm (5' 8) 05/30/2023 10:1 1 AM EDT Body Mass Index 35.59 05/30/2023 10:11 AM EDT documented in this encounter Progress Notes * Tito Lamb III, MD - 05/30/2023 10:20 AM EDT Images from the original note were not included. Otolaryngology Outpatient Consultation Note Date of Visit: 05/30/2023 Location of Visit: Otolaryngology Clinic, [facility] Patient: Juany Tristan ([id number]; 1985) Primary Care Provider: Palmira Hartley APRN Referring Provider: Palmira Hartley Reason for Visit: Juany is a 38 y.o. female seen at the request of Palmira Hartley in consultation forasymmetric tonsils. History of Present Illness: Juany reports a many month history of a feeling of a hair ball in the right side of her throat. She was found to have significantly asymmetric tonsils R>>L, and had been scheduled for a tonsillectomy elsewhere, which has not been accomplished. Past Medical History: No past medical history on file. Past Surgical History: No past surgical history on file. Medications: Current Outpatient Medications on File Prior to Visit Medication Sig Dispense Refill Wegovy 2.4 mg/0.75 mL Pen Injector dextroamphetamine-amphetamine (Adderall) 5 mg tablet Vyvanse 40 mg Capsule Take 1 capsule by mouth daily. [DISCONTINUED] Wegovy 0.25 mg/0.5 mL Pen Injector No current facility-administered medications on file prior to visit. Allergies: Bactrim [sulfamethoxazole-trimethoprim] and Sulfa (sulfonamide antibiotics) Social History: Lives in [place] [address], Tobacco:Vape Alcohol:Yes Other: Immunizations UTD. Family History: No family history on file. Review of Systems: Pertinent positive findings discussed above. No other findings on review of constitutional, visual, cardiovascular, respiratory, gastrointestinal, genitourinary, musculoskeletal, dermatologic, neurological, psychiatric, endocrine, hematologic or immunologic systems. Physical Examination: Vitals: Height 172.7 cm (5' 8), weight 106.2 kg (234 lb 1.6 oz). General: No acute distress. Face: Full and symmetric facial movement. No dysmorphic facial features. Eyes: Periocular structures and conjunctiva healthy without lesions. Pupils are equal, round, and reactive to light. Extraocular movement is full and intact. No dysconjugate gaze. No evidence of nystagmus. Ears: Auricles symmetric without lesions. External auditory canals clear. Right tympanic membrane normal, right middle ear normal. Left tympanic membrane normal, left middle ear notmal. Nose: Patent anteriorly with adequate airflow, healthy pink mucosa. Septum is midline without significant deviation. Inferior turbinates normal. Mouth: Lips and gingiva pink, moist, without lesions. Dentition healthy. Tongue and floor of mouth soft without lesions or masses. Hard palate without lesions. Pharynx: Soft palate without lesions. Uvula is intact. Oropharynx symmetric. Larynx: Vocal mobility and morphology normal. Neck: Soft, supple, without significant lymphadenopathy. Thyroid gland without masses or asymmetry.Trachea midline without deviation. Lymphatic: Negative for additional peripheral lymphadenopathy or lymphedema. Neurologic: Cranial nerves II-XII intact and symmetric. Procedure - Otologic Microscopic Examination: External auditory canal visualized utilizing a Stierlen microscope. Findings: unremrkable Procedure - Flexible Fiberoptic Laryngoscopy: Topical anesthetic applied to the nasal cavity. Patient tolerated the procedure well without complication. Findings: Nasal Cavity: normal Nasopharynx: Normal Oropharynx: Marked asymmetry of the tonsils with enlargement of the rightno Larynx: Normal vocal mobility and morphology Hypopharynx: Normal Imaging Studies CT Neck: (Personally reviewed by me) Impression: Marked tonsil asymmetry. Recommendations: I agree that tonsillectomy is indicated for this degree of asymmetry if only for pathologic evaluation. Tonsillectomy in this case is an elective procedure. The risks, benefits, and alternatives to tonsillectomy were discussed, including but not limited to, complications arising from general anesthesia, , bleeding, infection, dental and /or temporomandibular joint injury, voice change, velopharyngeal insufficiency, edema, airway obstruction, difficulty swallowing, and postoperative bleeding necessitating further surgery. The patient had ample opportunity to ask questions, appears to comprehend, will consider, and will call should they wish to proceed. She is aware another member of the department will be performing the procedure and is comfortable with meeting the day of the procedure. documented in this encounter Plan of Treatment Not on file documented as of this encounter Visit Diagnoses Diagnosis Tonsil asymmetry Other chronic disease of tonsils and adenoids documented in this encounter Care Teams Glass Grinder Relationship Specialty Start Date End Date Palmira Hartley APRN [address] [place] [address] PCP - General Family Medicine 02/25/22 documented as of this encounter
[2024-10-25 22:28] LABS: Iron 62 ug/dL (50-170); Total Iron Binding Capacity 327 ug/dL (250-450); Transferrin Sat 19 % (15-50)
[2024-10-25 22:34] LABS: ALT 26 U/L (14-59); AST 24 U/L (15-37); Albumin 3.9 g/dL (3.4-5.0); Alkaline Phosphatase 100 U/L (46-116); Anion Gap 10.6 mmol/L (3-11); BUN 5 mg/dL (7-18); Bilirubin, Total 0.28 mg/dL (0.2-1.0); CO2 27.4 mmol/L (21.0-32.0); CREATININE 0.8 mg/dL (0.55-1.02); Calcium 9.4 mg/dL (8.5-10.1); Chloride 103 mmol/L (98-107); Estimated GFR 95.46 (mL/min/1.73m2); Glucose 93 mg/dL (74-106); Sodium 141 mmol/L (136-145); Total Protein 7.6 g/dL (6.4-8.2)
[2024-10-26 04:49] LABS: Ferritin 118 ng/mL (8-252)
[2024-10-30 11:24] LABS: Testosterone, Total 19 ng/dL (8-60)
== END 2024-10-25 22:02 | disposition home or self-care (01) ==
LOC: NCHCN 22:01
PROVIDERS: PCP Nurse Practitioner Family; Visit Provider Nurse Practitioner Family
DX: L65.9 Nonscarring hair loss, unspecified (principal)
CPT/HCPCS: 80053; 84403; 85027; 82728; 83540; 83550; 84443

== ENCOUNTER 2024-11-05 16:34 | Outpatient (REF) | payer OTHER, SELFPAY ==
--- OUTSIDE RECORDS SUMMARY | 2024-11-05 16:35 | XMS_ITS | Encounter Summary ---
Author Organization [facility] Address [address] [place] [address] Care Team Providers Care Circular Sawyer Stone Name Role Phone Unknown, Provider Primary Care Provider Juany Reeves Primary Care Provider Un available Encounter Details Date Type Department Care Team (Late st Contact Info) Description 10/28/2016 Historical Results Only [facility] Lab - Main [address] [id number] Ellyn Quarles MD [address] [place] [address], [address] [place] [address] Social History Tobacco Use Types [...] (10/28/2016 8:40 EST) URINE PROTEIN RANDOM - [facility] 18.3(H) 0 - 11.9 mg/DL 10/28/2016 9:25 EST [facility] 10/28/2016 8:40 EST 10/28/2016 8:51 EST Narrative [facility] - 10/28/2016 10:58 EST Does PT Have a Latex Allergy? NO us Ellyn Quarles MD URINALYSIS ORDERABLES Final Res ult [facility] documented in this encounter Visit Diagnoses Not on filedocumented in this encounter Care Teams Circular Sawyer Stone Relationship Specialty Start Date End Date Unknown, Provider, PCP - General 05/20/11 06/27/19 Juany Landon ARNP [address] [address] PCP - General 06/28/19 documented as of this encounter
--- OUTSIDE RECORDS SUMMARY | 2024-11-05 16:35 | XMS_ITS | Encounter Summary ---
Author Organization [facility] Address [address] [place] [address] Care Team Providers Care Foreign Language Interpreter Name Role Phone Unknown, Provider Primary Care Provider Juany Reeves Primary Care Provider Un available Encounter Details Date Type Department Care Team (Late st Contact Info) Description 11/04/2016 Historical Results Only [facility] - [facility] Lab - Main [place] [address] [place] [address] Queta Tiwari MD [address] [place] [address]-, [address] [place] [address] Social History Tobacco Use Types [...] * URIC ACID (11/04/2016 8:54 EST) Pathologist [facility] URIC ACID - [facility] 3.2 2.6 - 7.2 mg/dl 11/04/2016 9:30 [facility] 11/04/2016 8:54 EST 11/04/2016 9:07 EST Narrative [facility] - 11/04/2016 9:30 EST Does PT Have a Latex Allergy? NO us Queta Tiwari MD CHEMISTRY & BLOOD GAS ORDERAB LES Final Result [facility] * (ABNORMAL) COMPREHENSIVE METABOLIC PANEL (CMP) (11/04/2016 8:54 EST) [facility] Albumin % 2.5(L) 3.4 - 5.0 g/dL 11/04/2016 9:30 [facility] ALKALINE PHOSPHATASE - [facility] 116 41 - 126 U/L 11/04/2016 9:30 [facility] BILIRUBIN TOTAL 0.2 0.0 - 1.0 mg/dL 11/04/2016 9:30 [facility] BUN - [facility] 5(L) 7 - 18 mg/dL 11/04/2016 9:30 [facility] CALCIUM - [facility] 8.8 8.5 - 10.1 mg/dL 11/04/2016 9:30 [...] 9:30 [facility] GLUCOSE - [facility] 98 70 - 100 mg/dL 11/04/2016 9:30 [facility] Potassium 3.7 3.5 - 5.0 mEq/L 11/04/2016 9:30 [facility] Sodium 138 135 - 145 mEq/L 11/04/2016 9:30 [facility] TOTAL PROTEIN - [facility] 6.0(L) 6.4 - 8.2 gm/dl 11/04/2016 9:30 [facility] SGOT/AST - [facility] 13 10 - 37 U/L 11/04/2016 9:30 [facility] SGPT/ALT - [facility] 13 12 - 78 U/L 11/04/2016 9:30 [facility] 11/04/2016 8:54 EST 11/04/2016 9:07 EST [facility] - 11/04/2016 9:30 EST Does PT Have a Latex Allergy? NO us Queta Tiwari MD CHEMISTRY & BLOOD GAS ORDERAB LES Final Result [facility] * (ABNORMAL) COMPLETE BLOOD [...] 9:15 [facility] HEMOGLOBIN - [facility] 12.1 11.2 - 15.7 g/dl 11/04/2016 9:15 [...] [facility] MEAN CORPUSCULAR HGB - [facility] 30.0 26 - 34 pg 11/04/2016 9:15 [facility] MEAN CORPUSCULAR HGB CONC - [facility] 35.0 31 - 36 g/dL 11/04/2016 9:15 [facility] MEAN CELL VOLUME - [facility] 85.6 77 - 100 fl 11/04/2016 9:15 [facility] MONO # - [facility] 1.03(H) 0.3 - 0.9 10e3/uL 11/04/2016 9:15 [facility] MONO% - [facility] 8 0 - 12 % 11/04/2016 9:15 [facility] PLATELET COUNT 311 150 - 400 10e3/ul 11/04/2016 9:15 [facility] RED BLOOD COUNT - [facility] 4.04 3.8 - 5.2 10e6/ul 11/04/2016 9:15 [facility] RED CELL DISTRI WIDTH - [facility] 13.3 11.8 - 15.6 % 11/04/2016 9:15 [facility] WHITE BLOOD COUNT - [facility] 13.6(H) 3.5 - 10.5 10e3/ul 11/04/2016 9:15 [facility] 11/04/2016 8:54 EST 11/04/2016 9:08 [facility] - 11/04/2016 9:15 EST Does PT Have a Latex Allergy? NO Queta Tiwari MD HEMATOLOGY & PF4 ORDERABLES F inal Result [facility] * PROTEIN/CREATININE RATIO, URINE (11/04/2016 8:45 EST) URINE PROTEIN: CREAT RATIO - [facility] 0.139 0 - 0.2 11/04/2016 10:41 EST [facility] 11/04/2016 8:45 EST 11/04/2016 9:12 EST Narrative [facility] - 11/04/2016 10:41 EST Does PT Have a Latex Allergy? NO Queta Tiwari MD URINALYSIS ORDERABLES Final R esult Performing Organization Address City/[facility]/ZIP Co de Phone Number [facility] documented in this encounter Visit Diagnoses Not on filedocumented in this encounter Care Teams Foreign Language Interpreter Relationship Specialty Start Date End Date Unknown, Provider, PCP - General 05/20/11 06/27/19 Juany Landon ARNP [address] [address] PCP - General 06/28/19 documented as of this encounter
--- OUTSIDE RECORDS SUMMARY | 2024-11-05 16:35 | XMS_ITS | Encounter Summary ---
Author Organization [facility] Address [address] [place] [address] Care Team Providers Care Staff Nurse Name Role Phone Unknown, Provider Primary Care Provider Juany Reeves Primary Care Provider Un available Encounter Details Date Type Department Care Team (Late st Contact Info) Description 11/04/2016 Historical Results Only [facility] Lab - Main [address] [address] Queta Tiwari MD [address] [place] [address], [address] [place] [address] Social History Tobacco Use Types [...] (11/04/2016 8:45 EST) [place]INE PROTEIN [place]ANDOM [place] [facility] 20.5(H) 0 - 11.9 mg/DL 11/04/2016 10:40 EST [facility] 11/04/2016 8:45 EST 11/04/2016 9:12 EST Narrative [facility] - 11/04/2016 10:41 EST Does PT Have a Latex Allergy? NO us Queta Tiwari MD URINALYSIS ORDERABLES Final R esult [facility] documented in this encounter Visit Diagnoses Not on filedocumented in this encounter Care Teams Staff Nurse Relationship Specialty Start Date End Date Unknown, Provider, PCP - General 05/20/11 06/27/19 Juany Landon ARNP [address] [address] PCP - General 06/28/19 documented as of this encounter
--- OUTSIDE RECORDS SUMMARY | 2024-11-05 16:35 | XMS_ITS | Referral Summary ---
Author Organization [facility] Address [address] [place] [address] Care Team Providers Care Occupational Health Coordinator Name Role Phone Juany Landon Primary [...] of Treatment Not on file Care Teams Occupational Health Coordinator Relationship Specialty Start Date End Date Juany Landon ARNP [address] [address] PCP - General 06/28/19
--- OUTSIDE RECORDS SUMMARY | 2024-11-05 16:35 | XMS_ITS | Encounter Summary ---
Author Organization [facility] Address [address] [place] [address] Care Team Providers Care Rn International Name Role Phone Unknown, Provider Primary Care Provider Juany Reeves Primary Care Provider Un available Encounter Details Date Type Department Care Team (Late st Contact Info) Description 11/11/2016 Historical Results Only [facility] Lab - Main [address] [address] Mitzi Wiley MD [address] [place] [address], [address] [place] [address] Social History Tobacco Use Types [...] * TYPE AND SCREEN (11/11/2016 0:05 EST) [facility] BLOOD TYPE [facility] A Positive [facility] Antibody Screen NEGATIVE [facility] Comment: PATIENT'S RESPONSES INDICATE A HISTORY OF SURGERY, TRANSFUSION OR WITHIN THE LAST 3 MONTHS. FOR BLOOD PRODUCTS, THIS SPECIMEN WILL OUTDATE 72 HOURS FROM THE TIME IT WAS COLLECTED. ??ANY BLOOD PRODUCTS ORDERED AFTER 72 HOURS MUST BE WORKED UP ON A NEW SPECIMEN. Specimen Expires: [id number] [facility] 11/11/2016 0:05 EST 11/11/2016 0:[address] [facility] - 11/10/2016 23:43 EST Does PT Have a Latex Allergy? NO IS THIS A PREOPERATIVE PATIENT? Y IF YES, DATE OF SURGERY: 11/10/16 Mitzi Wiley MD BLOOD BANK TESTS Final Result [facility] documented in this encounter Visit Diagnoses Not on filedocumented in this encounter Care Teams Rn International Relationship Specialty Start Date End Date Unknown, Provider, PCP - General 05/20/11 06/27/19 Juany Landon ARNP [address] [address] PCP - General 06/28/19 documented as of this encounter
--- OUTSIDE RECORDS SUMMARY | 2024-11-05 16:35 | XMS_ITS | Encounter Summary ---
Author Organization [facility] Address [address] [place] [address] Care Team Providers Care Casino Duty Manager Name Role Phone Juany Landon Primary Care Provider Un available Reason for Visit * Reason Onset Date Comments Other 09/02/2019 needs all vacina tions for her new job. Encounter Details Date Type Department Care Team (Late st Contact Info) Description 09/02/2019 Telephone [facility] - [facility] OBGYN [address] [place], [place] [id number] Queta Tiwari MD [address] [facility], [address] [place] [address] Other (needs all vacinations for [...] on filedocumented in this encounter Care Teams Casino Duty Manager Relationship Specialty Start Date End Date Juany Landon ARNP [address] [phone] PCP - General 06/28/19 documented as of this encounter
--- OUTSIDE RECORDS SUMMARY | 2024-11-05 16:35 | XMS_ITS | Encounter Summary ---
Author Organization [facility] Address [address] [place] [address] Care Team Providers Care Filter Tender Jelly Name Role Phone Unknown, Provider Primary Care Provider Juany Reeves Primary Care Provider Un available Encounter Details Date Type Department Care Team (Late st Contact Info) Description 10/28/2016 Historical Results Only [facility] [place] [address] [place] [id number] Ellyn Quarles MD [address] [place] [address], [address] [place] [address] Social History Tobacco Use Types [...] * URIC ACID (10/28/2016 9:16 EST) Pathologist [facility] URIC ACID - [facility] 3.0 2.6 - 7.2 mg/dl 10/28/2016 9:37 EST [facility] 10/28/2016 9:16 EST 10/28/2016 9:20 EST [facility] - 10/28/2016 10:59 EST Does PT Have a Latex Allergy? NO AOT: 10/28/16 1058: CREAT Ellyn Quarles MD CHEMISTRY & BLOOD GAS ORDERABLE S Final Result Performing Organization Address City/[facility]/ZIP Co de Phone Number [facility] * (ABNORMAL) ALT (10/28/2016 9:16 EST) Pathologist [facility] SGPT/ALT - [facility] 11(L) 12 - 78 U/L 10/28/2016 9:37 EST [facility] 10/28/2016 9:16 EST 10/28/2016 9:20 EST [facility] - 10/28/2016 10:59 EST Does PT Have a Latex Allergy? NO AOT: 10/28/16 1058: CREAT us Ellyn Quarles MD CHEMISTRY & BLOOD GAS ORDERABLE S Final Result [facility] * AST (10/28/2016 9:16 EST) Pathologist [facility] SGOT/AST - [facility] 11 10 - 37 U/L 10/28/2016 9:37 EST [facility] 10/28/2016 9:16 EST 10/28/2016 9:20 EST [facility] - 10/28/2016 10:59 EST Does PT Have a Latex Allergy? NO AOT: 10/28/16 1058: CREAT Ellyn Quarles MD CHEMISTRY & BLOOD GAS ORDERABLE S Final Result Performing Organization Address [facility]/ZIP Co de Phone Number [facility] * CREATININE (10/28/2016 9:16 EST) [facility] CREATININE 0.50 0.5 - 1.3 mg/dL 10/28/2016 10:59 EST [facility] eGFR >60 10/28/2016 10:59 EST [facility] Comment: Chronic renal impairment is defined as GFR <60 Multiply result by 1.210 for patients. eGFR calculated using the IDMS-traceable MDRD Study Equation. ??(effective 08/25/2014) 10/28/2016 9:16 EST 10/28/2016 9:20 EST [facility] - 10/28/2016 10:59 EST Does PT Have a Latex Allergy? NO AOT: 10/28/16 1058: CREAT Ellyn Quarles MD CHEMISTRY & BLOOD GAS ORDERABLE S Final Result Performing Organization Address [facility] de Phone Number [facility] * (ABNORMAL) BUN (10/28/2016 9:16 EST) [facility] BUN [facility] 6(L) 7 - 18 mg/dL 10/28/2016 9:37 EST [facility] 10/28/2016 9:16 EST 10/28/2016 9:20 EST Narrative [facility] - 10/28/2016 10:59 EST Does PT Have a Latex Allergy? NO AOT: 10/28/16 1058: CREAT Ellyn Quarles MD CHEMISTRY & BLOOD GAS ORDERABLE S Final Result Performing Organization Address [facility]/ZIP Co de Phone Number [facility] * (ABNORMAL) COMPLETE BLOOD COUNT WITH DIFFERENTIAL (AUTO) (10/28/2016 9:16 EST) ABSOLUTE NEUTROPHIL COUN - [facility] 8.35(H) 1.7 - 7.0 10e3/ul 10/28/2016 9:29 [facility] BASO # - [facility] 0.02 0.0 - 0.3 10e3/uL 10/28/2016 9:29 [facility] BASO % - [facility] 0 0 - 2 % 10/28/2016 9:29 [facility] EOS # - [facility] 0.16 0.05 - 0.5 10e3/uL 10/28/2016 9:29 [facility] EOS % - [facility] 1 0 - 5 % 10/28/2016 9:29 [facility] GRAN % - [facility] 72 40 - 80 % 10/28/2016 9:29 [facility] HEMATOCRIT - [facility] 35.2 34.0 - 47.0 % 10/28/2016 9:29 [facility] HEMOGLOBIN - [facility] 12.0 11.2 - 15.7 g/dl 10/28/2016 9:29 [facility] IG# - [facility] 0.10(H) 0 - 0.07 10e3/uL 10/28/2016 9:29 [facility] IG% - [facility] 0.9 0 - 0.9 % 10/28/2016 9:29 [facility] LYMPH # - [facility] 2.19 0.9 - 2.9 10e3/uL 10/28/2016 9:29 [facility] LYMPH% - [facility] 19(L) 20 - 40 % 10/28/2016 9:29 [facility] MEAN CORPUSCULAR HGB - [facility] 29.5 26 - 34 pg 10/28/2016 9:29 [facility] MEAN CORPUSCULAR HGB CONC - [facility] 34.1 31 - 36 g/dL 10/28/2016 9:29 [facility] MEAN CELL VOLUME - [facility] 86.5 77 - 100 fl 10/28/2016 9:29 [facility] MONO # - [facility] 0.76 0.3 - 0.9 10e3/uL 10/28/2016 9:29 [facility] MONO% - [facility] 7 0 - 12 % 10/28/2016 9:29 EST [facility] PLATELET COUNT 312 150 - 400 10e3/ul 10/28/2016 9:29 EST [facility] RED BLOOD COUNT - [facility] 4.07 3.8 - 5.2 10e6/ul 10/28/2016 9:29 [facility] RED CELL DISTRI WIDTH - [facility] 13.3 11.8 - 15.6 % 10/28/2016 9:29 [facility] WHITE BLOOD COUNT - [facility] 11.6(H) 3.5 - 10.5 10e3/ul 10/28/2016 9:29 [facility] 10/28/2016 9:16 EST 10/28/2016 9:20 EST Narrative [facility] - 10/28/2016 9:29 EST Does PT Have a Latex Allergy? NO us Ellyn Quarles MD HEMATOLOGY & PF4 ORDERABLES Fin al Result [facility] * PROTEIN/CREATININE RATIO, URINE (10/28/2016 8:40 EST) URINE PROTEIN: CREAT RATIO - [facility] 0.147 0 - 0.2 10/28/2016 9:25 EST [facility] 10/28/2016 8:40 EST 10/28/2016 8:51 EST Narrative [facility] - 10/28/2016 10:58 EST Does PT Have a Latex Allergy? NO us Ellyn Quarles MD URINALYSIS ORDERABLES Final Res ult [facility] documented in this encounter Visit Diagnoses Not on filedocumented in this encounter Care Teams Filter Tender Jelly Relationship Specialty Start Date End Date Unknown, Provider, PCP - General 05/20/11 06/27/19 Juany Landon ARNP [address] [address] PCP - General 06/28/19 documented as of this encounter
--- OUTSIDE RECORDS SUMMARY | 2024-11-05 16:35 | XMS_ITS | Encounter Summary ---
Author Organization [facility] Address [address] [place] [address] Care Team Providers Care Manager Shift Name Role Phone Unknown, Provider Primary Care Provider Juany Reeves Primary Care Provider Un available Encounter Details Date Type Department Care Team (Late st Contact Info) Description 10/25/2016 Historical Results Only [facility] - Main [place] [address] [place] [address] [phone] Mitzi Wiley MD [address] [place] [address]-, [address] [place] [address] Social History Tobacco Use Types [...] Not-Detect ed by PCR 10/26/2016 14:24 EST [facility] Group [facility] Strep PCR 10/26/2016 14:24 EST [facility] Strep PCR Not Done 10/26/2016 14:24 EST [facility] 10/25/2016 8:10 EST 10/25/2016 8:50 EST Narrative [facility] - 10/26/2016 14:24 EST Does PT Have a Latex Allergy? NO us Mitzi Wiley MD MICROBIOLOGY - GENERAL ORDERA BLES Final Result [facility] documented in this encounter Visit Diagnoses Not on filedocumented in this encounter Care Teams Manager Shift Relationship Specialty Start Date End Date Unknown, Provider, PCP - General 05/20/11 06/27/19 Juany Landon ARNP [address] [address] PCP - General 06/28/19 documented as of this encounter
--- OUTSIDE RECORDS SUMMARY | 2024-11-05 16:35 | XMS_ITS | Encounter Summary ---
Author Organization [facility] Address [address] [place] [address] Care Team Providers Care Dogman/Woman Name Role Phone Unknown, Provider Primary Care Provider Juany Reeves Primary Care Provider Un available Encounter Details Date Type Department Care Team (Late st Contact Info) Description 11/04/2016 Historical Results Only [facility] Lab - Main [address] [address] Queta Tiwari MD [address] [place] [address], [address] [place] [address] Social History [...] (11/04/2016 8:45 EST) URINE CREATININE RANDOM - [facility] 147.00(H) 30 - 125 mg/dL 11/04/2016 10:40 EST [facility] 11/04/2016 8:45 EST 11/04/2016 9:12 EST Narrative [facility] - 11/04/2016 10:41 EST Does PT Have a Latex Allergy? NO us Queta Tiwari MD URINALYSIS ORDERABLES Final R esult [facility] documented in this encounter Visit Diagnoses Not on filedocumented in this encounter Care Teams Dogman/Woman Relationship Specialty Start Date End Date Unknown, Provider, PCP - General 05/20/11 06/27/19 Juany Landon ARNP [address] [address] PCP - General 06/28/19 documented as of this encounter
--- OUTSIDE RECORDS SUMMARY | 2024-11-05 16:35 | XMS_ITS | Clinical Summary ---
Author Organization [facility] Address [address] [place] [address] Care Team Providers Care Damper Maker Name Role Phone Juany Landon Primary Care [...] COVID-19 Vaccine ( season) 2024 Care Teams Damper Maker Relationship Specialty Start Date End Date Juany Landon ARNP [address] [address] PCP - General 06/28/19
--- OUTSIDE RECORDS SUMMARY | 2024-11-05 16:35 | XMS_ITS | Encounter Summary ---
Author Organization [facility] Address [address] [place] [address] Care Team Providers Care Placement Specialist Name Role Phone DipeshJuany OLLIE Primary Care Provider Un available Encounter Details Date Type Department Care Team (Late st Contact Info) Description 03/02/2021 Lab Requisition [facility] Pathology & Laboratory Medicine - [address] [address] Outr Resulting Lab, Provider Social History Tobacco [...] AL ORDERABLES Final Result Performing Organization Address City/State/[facility] Co de Phone Number [facility] [address] [place] [address] * COVID-19 TESTING (03/01/2021 10:05 EDT) COVID-19 rt-PCR Result Negative Negative 03/03/2021 16:01 EDT [facility] Comment: This test has not [...] developed and its performance characteristics determined by [facility]. It has not been cleared or approved [...] testing. This test is based on the [facility] NAMED [facility] COVID-19 Emergency Use Authorization (EUA) assay, with minor modification as defined by the FDA Performed on the [employer] 7 Pro RT-PCR System. Performing Lab [facility] 03/03/2021 16:01 EDT [facility] Swab 03/01/2021 10:0 5 EDT 03/02/2021 16:14 EDT Provider Outr Resulting Lab MICROBIOLOGY - GENER AL ORDERABLES Final Result [facility] [address] [place] [address] documented in this encounter Visit Diagnoses Not on filedocumented in this encounter Care Teams Placement Specialist Relationship Specialty Start Date End Date Juany Landon ARNP [address] [address] PCP - General 06/28/19 documented as of this encounter
--- OUTSIDE RECORDS SUMMARY | 2024-11-05 16:35 | XMS_ITS | Encounter Summary ---
Author Organization [facility] Address [address] [place] [address] Care Team Providers Care Vp Customer Development Name Role Phone Unknown, Provider Primary Care Provider Adilene jacob Encounter Details Date Type Department Care Team ([facility] st Contact Info) Description 06/26/2019 Results Only [facility] [phone] Cheryl Still MD [address] [place] [phone] Social History Tobacco Use Types Packs/Day Years [...] ? SHAYNA GOODE ? Accession #: ? [id number] ? : ? 1985 (Age: 34) ??F ? Collect Date: ? 06/26/2019 ? Location: ? [facility] ? Receive Date: ? 06/26/2019 ? Provider: CHERYL STILL MD Copy to: SHAYNA RAFAEL DISPOSAL MAN ? Final Pathologic Diagnosis: A. FALLOPIAN TUBE, [...] dimension). Sectioning reveals a patent, unremarkable lumen. Therapeutic Support Staff sections, to include bisected fimbria, are submitted in A1-A2. B. ?Received in formalin labelled with proper patient identification (initials S, J) and L fallopian tube is a 5.5 cm in length x 0.5 cm in diameter fimbriated fallopian tube. The serosa is smooth and pink-redding. Sectioning reveals a patent, unremarkable lumen. Therapeutic Support Staff sections, to include bisected fimbria, are submitted in B1-B2. RENETTA Garcia (ASCP) 06/27/2019 8:24 AM End of Report [facility] 06/26/2019 16:5 9 EDT 06/26/2019 16:59 EDT us Cheryl Still MD PATHOLOGY ORDERABLES Final Resul t [facility] [address] [place] [address] documented in this encounter Visit Diagnoses Not on filedocumented in this encounter Care Teams Vp Customer Development Relationship Specialty Start Date End Date Unknown, Provider, PCP - General 05/20/11 06/27/19 documented as of this encounter
--- OUTSIDE RECORDS SUMMARY | 2024-11-05 16:35 | XMS_ITS | Encounter Summary ---
Author Organization [facility] Address [address] [place] [address] Care Team Providers Care Public Affairs Director Name Role Phone Unknown, Provider Primary Care Provider Juany Reeves Primary Care Provider Un available Encounter Details Date Type Department Care Team (Late st Contact Info) Description 10/28/2016 Historical Results Only [facility] Lab - Main [address] [phone] Ellyn Quarles MD [address] [place] [address], [address] [place] [address] Social History Tobacco Use Types [...] (10/28/2016 8:40 EST) URINE CREATININE RANDOM - [facility] 124.00 30 - 125 mg/dL 10/28/2016 9:24 EST [facility] 10/28/2016 8:40 EST 10/28/2016 8:51 EST Narrative [facility] - 10/28/2016 10:58 EST Does PT Have a Latex Allergy? NO us Ellyn Quarles MD URINALYSIS ORDERABLES Final Res ult [facility] documented in this encounter Visit Diagnoses Not on filedocumented in this encounter Care Teams Public Affairs Director Relationship Specialty Start Date End Date Unknown, Provider, PCP - General 05/20/11 06/27/19 Juany Landon ARNP [address] [address] PCP - General 06/28/19 documented as of this encounter
--- OUTSIDE RECORDS SUMMARY | 2024-11-05 16:35 | XMS_ITS | Encounter Summary ---
Author Organization [facility] Address [address] [place] [address] Care Team Providers Care Program Mgr Name Role Phone Unknown, Provider Primary Care Provider Juany Reeves Primary Care Provider Un available Encounter Details Date Type Department Care Team (Late st Contact Info) Description 12/29/2016 Historical Results Only [facility] Lab - Main [address] [phone] Mitzi Wiley MD [address] [place] [address], [address] [place] [address] Social History Tobacco Use Types [...] Result SEE COMMENTS () 12/30/2016 12:46 EST [facility] Comment: No Chlamydia trachomatis DNA detected by chronic manager mediated amplification. This test was developed and its performance characteristics determined by [facility]. It has not been cleared or [...] GC Result SEE COMMENTS () 12/30/2016 12:46 [facility] Comment: No Neisseria gonorrhoeae DNA detected by chronic manager mediated amplification. This test was developed and its performance characteristics determined by [facility]. It has not been cleared or [...] endocervical swab samples. Test Performed by: [place] [address] Hunting Guide: Skip Hernandez MD , Ph D SPECIMEN DESCRIP - [facility]INE () 12/30/2016 12:46 [facility] 12/29/2016 11:4 7 EST 12/29/2016 14:45 EST Mitzi Wiley MD MICROBIOLOGY - GENERAL DILLON RODRIGUEZ Final Result [facility] documented in this encounter Visit Diagnoses Not on filedocumented in this encounter Care Teams Program Mgr Relationship Specialty Start Date End Date Unknown, Provider, PCP - General 05/20/11 06/27/19 Juany Landon ARNP [address] [address] PCP - General 06/28/19 documented as of this encounter
--- OUTSIDE RECORDS SUMMARY | 2024-11-05 16:35 | XMS_ITS | Encounter Summary ---
Author Organization [facility] Address [address] [place] [address] Care Team Providers Care Bilingual Research Interviewer Name Role Phone Unknown, Provider Primary Care Provider Unava ilable Encounter Details Date Type Department Care Team (Latest Contact Info) Description 06/26/2019 15:52 EDT - 06/26/2019 23:59 EDT Hospital Encounter [address] [address] Unknown, Provider, Discharge Disposition: Home or Self [...] Code Departure Means Destination Home or Self Residential documented in this encounter Plan of Treatment Not on file documented as of this encounter Visit Diagnoses Not on filedocumented in this encounter Care Teams Bilingual Research Interviewer Relationship Specialty Start Date End Date Unknown, ProviderMD PCP - General 05/20/11 06/27/19 documented as of this encounter
--- OUTSIDE RECORDS SUMMARY | 2024-11-05 16:35 | XMS_ITS | Encounter Summary ---
Author Organization [facility] Address [address] [place] [address] Care Team Providers Care Coupon Manifest Clerk Name Role Phone Unknown, Provider Primary Care Provider Juany Reeves Primary Care Provider Un available Encounter Details Date Type Department Care Team (Late st Contact Info) Description 11/07/2016 Historical Results Only [facility] - [facility] Lab - Main [place] [address] [place] [phone] Mitzi Wiley MD [address] [place] [address], [address] [place] [address] Social History Tobacco Use Types [...] Hep B Surface Ag Negative 11/07/2016 20:06 [facility] Comment:Expected Values: Neg ative. 11/07/2016 18:2 1 EST 11/07/2016 19:27 EST us Mitzi Wiley MD CHEMISTRY & BLOOD GAS ORDERAB LES Final Result [facility] * (ABNORMAL) COMPLETE BLOOD COUNT WITH DIFFERENTIAL (AUTO) (11/07/2016 18:21 EST) ABSOLUTE NEUTROPHIL COUN - [facility] 8.28(H) 1.7 - 7.0 10e3/ul 11/07/2016 19:35 [facility] BASO # - [facility] 0.02 0.0 - 0.3 10e3/uL 11/07/2016 19:35 [facility] BASO % - [facility] 0 0 - 2 % 11/07/2016 19:35 [facility] EOS # - [facility] 0.13 0.05 - 0.5 10e3/uL 11/07/2016 19:35 [facility] EOS % - [facility] 1 0 - 5 % 11/07/2016 19:35 [facility] GRAN % - [facility] 68 40 - 80 % 11/07/2016 19:35 [facility] HEMATOCRIT - [facility] 32.9(L) 34.0 - 47.0 % 11/07/2016 19:35 [facility] HEMOGLOBIN - [facility] 11.2 11.2 - 15.7 g/dl 11/07/2016 19:35 [facility] IG# - [facility] 0.08(H) 0 - 0.07 10e3/uL 11/07/2016 19:35 [facility] IG% - [facility] 0.7 0 - 0.9 % 11/07/2016 19:35 [facility] LYMPH # - [facility] 3.03(H) 0.9 - 2.9 10e3/uL 11/07/2016 19:35 [facility] LYMPH% - [facility] 25 20 - 40 % 11/07/2016 19:35 [facility] MEAN CORPUSCULAR HGB - [facility] 29.3 26 - 34 pg 11/07/2016 19:35 [facility] MEAN CORPUSCULAR HGB CONC - [facility] 34.0 31 - 36 g/dL 11/07/2016 19:35 [facility] MEAN CELL VOLUME - [facility] 86.1 77 - 100 fl 11/07/2016 19:35 [facility] MONO # - [facility] 0.64 0.3 - 0.9 10e3/uL 11/07/2016 19:35 [facility] MONO% - [facility] 5 0 - 12 % 11/07/2016 19:35 [facility] PLATELET COUNT 296 150 - 400 10e3/ul 11/07/2016 19:35 [facility] RED BLOOD COUNT - [facility] 3.82 3.8 - 5.2 10e6/ul 11/07/2016 19:35 [facility] RED CELL DISTRI WIDTH - [facility] 13.4 11.8 - 15.6 % 11/07/2016 19:35 [facility] WHITE BLOOD COUNT - [facility] 12.2(H) 3.5 - 10.5 10e3/ul 11/07/2016 19:35 [facility] 11/07/2016 18:2 1 EST 11/07/2016 19:27 EST Mitzi Wiley MD HEMATOLOGY & PF4 ORDERABLES F inal Result [facility] * BLOOD BANK HOLD (CLOT) (11/07/2016 18:21 EST) CLOT TO HOLD - [facility] See Note [facility] Comment: CLOT TO HOLD WILL IN 48 HOURS FROM DATE ?AND TIME OF COLLECTION ?BLOOD BANK HISTORY HAS BEEN CHECKED 11/07/2016 18:2 1 EST 11/07/2016 19:27 EST Mitzi Wiley MD BLOOD BANK TESTS Final Result [facility] documented in this encounter Visit Diagnoses Not on filedocumented in this encounter Care Teams Coupon Manifest Clerk Relationship Specialty Start Date End Date Unknown, Provider, PCP - General 05/20/11 06/27/19 Juany Landon ARNP [address] [address] PCP - General 06/28/19 documented as of this encounter
--- OUTSIDE RECORDS SUMMARY | 2024-11-05 16:36 | XMS_ITS | Encounter Summary ---
Author Organization [facility] Address [address] [place] [address] Care Team Providers Care Nut Tightener Name Role Phone Unknown, Provider Primary Care Provider Juany Reeves Primary Care Provider Un available Encounter Details Date Type Department Care Team (Late st Contact Info) Description 10/07/2016 Historical Results Only [facility] Lab - Main [address] [phone] Barbra Regan MD [address] [facility] [address] [place] [address] Social History Tobacco Use Types Packs/Day Years [...] 11:50 EST) URINE PROTEIN: CREAT RATIO - [facility] 0.151 0 - 0.2 10/07/2016 12:26 EST [facility] 10/07/2016 11:5 0 EST 10/07/2016 12:00 EST Narrative [facility] - 10/07/2016 12:26 EST Does PT Have a Latex Allergy? NO Barbra Regan MD URINALYSIS ORDERABLES Final Re sult [facility] * LDH (10/07/2016 11:20 EST) [facility] LDH - [facility] 155 100 - 190 U/L 10/07/2016 11:50 [facility] 10/07/2016 11:2 0 EST 10/07/2016 11:27 EST Narrative [facility] - 10/07/2016 11:50 EST Does PT Have a Latex Allergy? NO Barbra Regan MD CHEMISTRY & BLOOD GAS ORDERABL ES Final Result Performing Organization Address City/[facility]/ZIP Co de Phone Number [facility] * (ABNORMAL) COMPREHENSIVE METABOLIC PANEL (CMP) (10/07/2016 11:20 EST) [facility] Albumin % 2.5(L) 3.4 - 5.0 g/dL 10/07/2016 11:50 [facility] ALKALINE PHOSPHATASE - [facility] 95 41 - 126 U/L 10/07/2016 11:50 [facility] BILIRUBIN TOTAL 0.1 0.0 - 1.0 mg/dL 10/07/2016 11:50 [facility] BUN - [facility] 7 7 - 18 mg/dL 10/07/2016 11:50 [facility] CALCIUM - [facility] 8.6 8.5 - 10.1 mg/dL 10/07/2016 11:50 [facility] Chloride 105 98 - 107 mEq/L 10/07/2016 11:50 [facility] CO2 Total 23 21 - 32 mEq/L 10/07/2016 11:50 [facility] CREATININE 0.46(L) 0.5 - 1.3 mg/dL 10/07/2016 11:50 [facility] eGFR >60 10/07/2016 11:50 [facility] Comment: Chronic renal impairment is defined as GFR <60 Multiply result by 1.210 for patients. eGFR calculated using the IDMS-traceable MDRD Study Equation. ??(effective 08/25/2014) Anion Gap 11 5 - 15 10/07/2016 11:50 [facility] GLUCOSE - [facility] 81 70 - 100 mg/dL 10/07/2016 11:50 [facility] Potassium 3.5 3.5 - 5.0 mEq/L 10/07/2016 11:50 [facility] Sodium 139 135 - 145 mEq/L 10/07/2016 11:50 [facility] TOTAL PROTEIN - [facility] 6.4 6.4 - 8.2 gm/dl 10/07/2016 11:50 [facility] SGOT/AST - [facility] 13 10 - 37 U/L 10/07/2016 11:50 [facility] SGPT/ALT - [facility] 15 12 - 78 U/L 10/07/2016 11:50 [facility] 10/07/2016 11:2 0 EST 10/07/2016 11:27 EST [facility] - 10/07/2016 11:50 EST Does PT Have a Latex Allergy? NO us Barbra Regan MD CHEMISTRY & BLOOD GAS ORDERABL ES Final Result [facility] * (ABNORMAL) COMPLETE BLOOD COUNT WITH DIFFERENTIAL (AUTO) (10/07/2016 11:20 EST) ABSOLUTE NEUTROPHIL COUN - [facility] 8.99(H) 1.7 - 7.0 10e3/ul 10/07/2016 11:31 [facility] BASO # - [facility] 0.02 0.0 - 0.3 10e3/uL 10/07/2016 11:31 [facility] BASO % - [facility] 0 0 - 2 % 10/07/2016 11:31 [facility] EOS # - [facility] 0.14 0.05 - 0.5 10e3/uL 10/07/2016 11:31 [facility] EOS % - [facility] 1 0 - 5 % 10/07/2016 11:31 [facility] GRAN % - [facility] 72 40 - 80 % 10/07/2016 11:31 [facility] HEMATOCRIT - [facility] 32.4(L) 34.0 - 47.0 % 10/07/2016 11:31 [facility] HEMOGLOBIN - [facility] 11.3 11.2 - 15.7 g/dl 10/07/2016 11:31 [facility] IG# - [facility] 0.12(H) 0 - 0.07 10e3/uL 10/07/2016 11:31 [facility] IG% - [facility] 1.0(H) 0 - 0.9 % 10/07/2016 11:31 [facility] LYMPH # - [facility] 2.34 0.9 - 2.9 10e3/uL 10/07/2016 11:31 [facility] LYMPH% - [facility] 19(L) 20 - 40 % 10/07/2016 11:31 [facility] MEAN CORPUSCULAR HGB - [facility] 30.0 26 - 34 pg 10/07/2016 11:31 [facility] MEAN CORPUSCULAR HGB CONC - [facility] 34.9 31 - 36 g/dL 10/07/2016 11:31 [facility] MEAN CELL VOLUME - [facility] 85.9 77 - 100 fl 10/07/2016 11:31 [facility] MONO # - [facility] 0.82 0.3 - 0.9 10e3/uL 10/07/2016 11:31 [facility] MONO% - [facility] 7 0 - 12 % 10/07/2016 11:31 [facility] PLATELET COUNT 308 150 - 400 10e3/ul 10/07/2016 11:31 [facility] RED BLOOD COUNT - [facility] 3.77(L) 3.8 - 5.2 10e6/ul 10/07/2016 11:31 EST [facility] RED CELL DISTRI WIDTH - [facility] 13.0 11.8 - 15.6 % 10/07/2016 11:31 EST [facility] WHITE BLOOD COUNT - [facility] 12.4(H) 3.5 - 10.5 10e3/ul 10/07/2016 11:31 EST [facility] 10/07/2016 11:2 0 EST 10/07/2016 11:28 EST Narrative [facility] - 10/07/2016 11:31 EST Does PT Have a Latex Allergy? NO us Barbra Regan MD HEMATOLOGY & PF4 ORDERABLES Fi nal Result [facility] documented in this encounter Visit Diagnoses Not on filedocumented in this encounter Care Teams Nut Tightener Relationship Specialty Start Date End Date Unknown, Provider, PCP - General 05/20/11 06/27/19 Juany Landon ARNP [address] [address] PCP - General 06/28/19 documented as of this encounter
--- OUTSIDE RECORDS SUMMARY | 2024-11-05 16:36 | XMS_ITS | Encounter Summary ---
Author Organization [facility] [place] [address] Care Team Providers Care Chief Station Engineer Name Role Phone NaeemPalmira FLORENTINO Primary Care Provider [phone] Reason for Visit * Reason Onset Date Comments Medication Refill 07/17/2023 Encounter Details Date Type Department Care Team (Late st Contact Info) Description 07/17/2023 Refill [place] [address] Isabelle Salmon MD [facility] [place] [address] Social History Tobacco Use Types Packs/Day Years Used Date Smoking Tobacco: Former Cigarettes e-Cigarettes Smokeless Tobacco: Never Alcohol Use Standard Drinks/Week Comments Yes 2 (1 standard drink = 0.6 oz pur e alcohol) twisted tea x2/daily [facility] Inpatient Questions Answer Date Recorded Does Anyone [...] on filedocumented in this encounter Care Teams Chief Station Engineer Relationship Specialty Start Date End Date Palmira Hartley APRN [address] [place] [address] PCP - General Family Medicine 02/25/22 documented as of this encounter
--- OUTSIDE RECORDS SUMMARY | 2024-11-05 16:36 | XMS_ITS | Encounter Summary ---
Author Organization [facility] Address [address] [place] [address] Care Team Providers Care Brainer Name Role Phone Unknown, Provider Primary Care Provider Juany Reeves Primary Care Provider Un available Encounter Details Date Type Department Care Team (Late st Contact Info) Description 10/14/2016 Historical Results Only [facility] Lab - Main [place] [address] [place] [phone] Mitzi Wiley MD [address] [place] [address], [address] [place] [address] Social History Tobacco Use Types [...] (10/14/2016 10:59 EST) URINE CREATININE RANDOM - [facility] 55.70 30 - 125 mg/dL 10/14/2016 14:55 EST [facility] 10/14/2016 10:5 9 EST 10/14/2016 14:11 EST us Mitzi Wiley MD URINALYSIS ORDERABLES Final R esult [facility] documented in this encounter Visit Diagnoses Not on filedocumented in this encounter Care Teams Brainer Relationship Specialty Start Date End Date Unknown, Provider, PCP - General 05/20/11 06/27/19 Juany Landon ARNP [address] [address] PCP - General 06/28/19 documented as of this encounter
--- OUTSIDE RECORDS SUMMARY | 2024-11-05 16:36 | XMS_ITS | Encounter Summary ---
[place] [address] Care Team Providers Care Landing Signal Officer Name Role Phone Palmira Hartley APRN Primary Care Provider [phone] Encounter Details Date Type Department Care Team (Late st Contact Info) Description 06/22/2023 Telephone [place] [id number] Maral Damico Social History Tobacco Use Types [...] on filedocumented in this encounter Care Teams Landing Signal Officer Relationship Specialty Start Date End Date Palmira Hartley APRN [address] [place] [address] PCP - General Family Medicine 02/25/22 documented as of this encounter
--- OUTSIDE RECORDS SUMMARY | 2024-11-05 16:36 | XMS_ITS | Encounter Summary ---
[place] [address] Care Team Providers Care Irrigation Pump Installer Name Role Phone Palmira Hartley APRN Primary Care Provider [phone] Reason for Visit * Auth/Cert (Routine) Specialty Diagnoses / Procedures Referred By Gregg barraza Referred To Contact Diagnoses Tonsil asymmetry tonsil asymmetry Procedures PRO REMOVAL OF TONSILS, 12+ Y/O TONSILLECTOMY AGE 12 AND OVER (WRVU 3.45) Isabelle Salmon MD [facility] [place] [address] [facility] Referral ID Status Reason Start Date Expiration Date Visits Re quested Visits Authorized [id number] 1 1 Encounter Details Date Type Department Care Team (Late st Contact Info) Description 07/14/2023 10:33 AM EDT - 07/14/2023 11:53 AM EDT Surgery [place] [address] Isabelle Salmon MD [facility] [place] [address] TONSILLECTOMY AGE 12 AND OVER (WRVU 3.45) [...] closest emergency room or call the hospital mirror finishing machine operator at [phone] and ask for physician monotype caster covering for your physician. Questions or problems after 5pm or on a weekend: Call the [facility] mirror finishing machine operator at and ask for the physician monotype caster covering for your doctor. At ~ 9:30 [...] lifting, straining, and bending for 2 weeks [place] streaks in your saliva is normal, but [...] Salmon MD - 07/14/2023 10:39 AM EDT [facility] Operative Note Patient Name: Juany Tristan : [id number] MR#: [id number] Case Date: 07/14/2023 Surgeon: Surgeon(s) and Role: [...] AM EDT Removal Of Tonsils, 12+ Y/O (06504) 07/14/2023 10:26 AM EDT Tonsil asymmetry TONSILLECTOMY OVER AGE 12 Routine 07/14/2023 9:18 AM EDT Tonsil asymmetry documented in this encounter Results * Specimen to Pathology (07/14/2023 10:45 AM EDT) AP Specimen 07/14/2023 10:4 5 AM EDT 07/14/2023 10:45 AM EDT Narrative [facility] - 07/14/2023 10:45 AM EDT Specimen requisition ordered. ??Separate Pathology report to follow Isabelle Salmon MD PATHOLOGY/CYTOLOGY O RDERABLES [facility] [place] [address] * Surgical Pathology Report (07/14/2023 10:44 AM EDT) Final Diagnosis [id number] ? Location: [facility] The signing pathologist has [...] Mccrary Verified: ??07/19/2023 10:27 ??Pathologist Performed at: ??-[facility] Dept. of Pathology, [place] [address] Manager Acute: Frandy Villanueva MD, FCAP, ??CLIA Certificate: [id number] SPECIMEN(S) SUBMITTED A - RIGHT TONSIL, other (1) B - LEFT TONSIL, other (1) CLINICAL INFORMATION Tonsil asymmetry SPECIMEN PROCESSING A - Labeled/Fixative: Right tonsil, fresh. Quantity/Size: Single, 3.5 x 1.8 x 1.8 cm. Tissue Description: Redding-pink, rubbery, focally hemorrhagic tonsil. Cut surfaces are congested, redding-pink with deep tonsillar crypts with fragmented grumous contents. Sections/Processi ng: Mechanical Equipment Test Engineer sections in 2 cassettes labeled A1-A2. B - Labeled/Fixative: Left tonsil, fresh. Quantity/Size: Single, 2.5 x 1.8 x 1.5 cm. Tissue Description: Redding-pink, rubbery, focally hemorrhagic tonsil. Cut surfaces are congested, redding-pink with deep tonsillar crypts with fragmented grumous contents. Sections/Processi ng: Mechanical Equipment Test Engineer sections in 2 cassettes labeled B1-B2. ??pps 07/19/2023 10:27 AM EDT [facility] BILATERAL PALATINE TONSILS / Unknown 07/14/2023 10:44 AM EDT 07/14/2023 10:44 AM EDT BILATERAL PALATINE TONSILS / Unknown 07/14/2023 10:44 AM EDT 07/14/2023 10:44 AM EDT Isabelle Salmon MD PATHOLOGY/[place] [address] [facility] [place] [place] [address] * Specimen to Pathology (07/14/2023 10:44 AM EDT) AP Specimen 07/14/2023 10:4 4 AM EDT 07/14/2023 10:44 AM EDT Narrative [facility] - 07/14/2023 10:44 AM EDT Specimen requisition ordered. ??Separate Pathology report to follow Isabelle Salmon MD PATHOLOGY/CYTOLOGY O MARTIN Performing Organization Address City/[facility]/ZIP Co de Phone Number [facility] [place] [address] documented in this encounter Visit Diagnoses Diagnosis [...] CRNA) documented in this encounter Care Teams Irrigation Pump Installer Relationship Specialty Start Date End Date Palmira Hartley APRN [address] [place] [address] PCP - General Family Medicine 02/25/22 documented as of this encounter
--- OUTSIDE RECORDS SUMMARY | 2024-11-05 16:36 | XMS_ITS | Encounter Summary ---
[place] [address] Care Team Providers Care Assessment Coordinator Name Role Phone Palmira Hartley APRN Primary Care Provider [phone] Reason for Visit * Auth/Cert (Routine) Specialty Diagnoses / Procedures Referred By Gregg barraza Referred To Contact Diagnoses Tonsil asymmetry tonsil asymmetry Procedures PRO REMOVAL OF TONSILS, 12+ Y/O TONSILLECTOMY AGE 12 AND OVER (WRVU 3.45) Isabelle Salmon MD [facility] [place] [address] [facility] Referral ID Status Reason Start Date Expiration Date Visits Re quested Visits Authorized [id number] 1 1 Encounter Details Date Type Department Care Team (Latest Contact Info) Description 07/14/2023 9:15 AM EDT - 07/14/2023 11:50 AM EDT Hospital Encounter [place] [address] Isabelle Salmon MD [facility] [place] [address] Tonsil asymmetry Discharge Disposition: Home Social History [...] closest emergency room or call the hospital high pressure boiler operator at [phone] and ask for physician injection molding engineer covering for your physician. Questions or problems after 5pm or on a weekend: Call the [facility] high pressure boiler operator at and ask for the physician injection molding engineer covering for your doctor. At ~ 9:30 [...] lifting, straining, and bending for 2 weeks [place] streaks in your saliva is normal, but [...] Salmon MD - 07/14/2023 10:39 AM EDT [facility] Operative Note Patient Name: Juany Tristan : [id number] MR#: [id number] Case Date: 07/14/2023 Surgeon: Surgeon(s) and Role: [...] AM EDT Removal Of Tonsils, 12+ Y/O (54261) 07/14/2023 10:26 AM EDT Tonsil asymmetry TONSILLECTOMY OVER AGE 12 Routine 07/14/2023 9:18 AM EDT Tonsil asymmetry documented in this encounter Results * Specimen to Pathology (07/14/2023 10:45 AM EDT) AP Specimen 07/14/2023 10:4 5 AM EDT 07/14/2023 10:45 AM EDT Narrative [facility] - 07/14/2023 10:45 AM EDT Specimen requisition ordered. ??Separate Pathology report to follow Isabelle Salmon MD PATHOLOGY/CYTOLOGY O RDERABLES [facility] [place] [address] * Surgical Pathology Report (07/14/2023 10:44 AM EDT) Final Diagnosis [id number] ? Location: [facility] The signing pathologist has [...] Mccrary Verified: ??07/19/2023 10:27 ??Pathologist Performed at: ??-[facility] Dept. of Pathology, [place] [address] Complaints Coordinator: Frandy Villanueva MD, FCAP, ??CLIA Certificate: [id number] SPECIMEN(S) SUBMITTED A - RIGHT TONSIL, other (1) B - LEFT TONSIL, other (1) CLINICAL INFORMATION Tonsil asymmetry SPECIMEN PROCESSING A - Labeled/Fixative: Right tonsil, fresh. Quantity/Size: Single, 3.5 x 1.8 x 1.8 cm. Tissue Description: Redding-pink, rubbery, focally hemorrhagic tonsil. Cut surfaces are congested, redding-pink with deep tonsillar crypts with fragmented grumous contents. Sections/Processi ng: Extruding Press Adjuster sections in 2 cassettes labeled A1-A2. B - Labeled/Fixative: Left tonsil, fresh. Quantity/Size: Single, 2.5 x 1.8 x 1.5 cm. Tissue Description: Redding-pink, rubbery, focally hemorrhagic tonsil. Cut surfaces are congested, redding-pink with deep tonsillar crypts with fragmented grumous contents. Sections/Processi ng: Extruding Press Adjuster sections in 2 cassettes labeled B1-B2. ??pps 07/19/2023 10:27 AM EDT [facility] BILATERAL PALATINE TONSILS / Unknown 07/14/2023 10:44 AM EDT 07/14/2023 10:44 AM EDT BILATERAL PALATINE TONSILS / Unknown 07/14/2023 10:44 AM EDT 07/14/2023 10:44 AM EDT Isabelle Salmon MD PATHOLOGY/CYTOLOGY O MARTIN [facility] [place] [address] [facility] [place] [address] * Specimen to Pathology (07/14/2023 10:44 AM EDT) AP Specimen 07/14/2023 10:4 4 AM EDT 07/14/2023 10:44 AM EDT Narrative [facility] - 07/14/2023 10:44 AM EDT Specimen requisition ordered. ??Separate Pathology report to follow Isabelle Salmon MD PATHOLOGY/CYTOLOGY O MARTIN Performing Organization Address City/[facility]/ZIP Co de Phone Number [facility] [place] [address] documented in this encounter Visit Diagnoses Diagnosis [...] CRNA) documented in this encounter Care Teams Assessment Coordinator Relationship Specialty Start Date End Date Palmira Hartley APRN [address] [place] [address] PCP - General Family Medicine 02/25/22 documented as of this encounter
--- OUTSIDE RECORDS SUMMARY | 2024-11-05 16:36 | XMS_ITS | Encounter Summary ---
Author Organization [facility] [place] [address] Care Team Providers Care Electrical Machinist Name Role Phone Marcelo Sauer DO, David Primary Care Provider [phone] Reason for Visit * Reason Comments Alopecia Encounter Details Date Type Department Care Team (Late st Contact Info) Description 11/13/2012 2:00 PM EST Office Visit Dermatology [address] [facility] [address] [place], [place] [id number] Po Dooley MD [address] [place] [address] RD, [place] [address] Alopecia areata (Primary Dx) Social History Tobacco [...] clinic p.r.n. for new lesions/concerns. Copy: Tristan Robertson D.O. documented in this encounter Plan of Treatment Not on file documented as of this encounter Visit Diagnoses Diagnosis Alopecia areata- Primary documented in this encounter Care Teams Electrical Machinist Relationship Specialty Start Date End Date Tristan Robertson DO PCP - General 10/31/12 02/24/22 documented as of this encounter
--- OUTSIDE RECORDS SUMMARY | 2024-11-05 16:36 | XMS_ITS | Encounter Summary ---
Author Organization [facility] Address [address] [place] [address] Care Team Providers Care Furniture Mover Driver Name Role Phone Unknown, Provider Primary Care Provider Juany Reeves Primary Care Provider Un available Encounter Details Date Type Department Care Team (Late st Contact Info) Description 10/14/2016 Historical Results Only [facility] - Main [address] [address] Mitzi Wiley MD [address] [place] [address], [address] [place] [address] Social History Tobacco Use Types [...] (10/14/2016 10:59 EST) URINE PROTEIN RANDOM - [facility] 10.0 0 - 11.9 mg/DL 10/14/2016 14:55 EST [facility] 10/14/2016 10:5 9 EST 10/14/2016 14:11 EST us Mitzi Wiley MD URINALYSIS ORDERABLES Final R esult [facility] documented in this encounter Visit Diagnoses Not on filedocumented in this encounter Care Teams Furniture Mover Driver Relationship Specialty Start Date End Date Unknown, Provider, PCP - General 05/20/11 06/27/19 Juany Landon ARNP [address] [address] PCP - General 06/28/19 documented as of this encounter
--- OUTSIDE RECORDS SUMMARY | 2024-11-05 16:36 | XMS_ITS | Encounter Summary ---
Author Organization [facility] Address [address] [place] [address] Care Team Providers Care Client Care Consultant Name Role Phone Unknown, Provider Primary Care Provider Juany Reeves Primary Care Provider Un available Encounter Details Date Type Department Care Team (Late st Contact Info) Description 09/19/2016 Historical Results Only [facility] Results [address] [place], [place] [id number] Ludivina Callejas, AIRBORNE SENSOR SPECIALIST [address] [facility], [address] [place] [address] Social History Tobacco Use Types [...] CC: ? Transcribed Date/Time: 09/21/2016 (1052) ? Dry Cell Assembly Supervisor: OVIDIO ? Printed Date/Time: 04/06/2019 (0008) ? PAGE 1 ? Signed Report ? Procedure Note Rob Palma E - 08/28/2019 EXAM: ULTRASOUND/OB LEVEL 2 FOLLOW UP EX. D/ (0952) CLINICAL INFORMATION: SIZE greater DATES Z33.1 See attached report. Report also available in PACS. REM:jing Reported By: Rob Palma MD CC: Transcribed Date/Time: 09/21/2016 (1052) Dry Cell Assembly Supervisor: OVIDIO Printed Date/Time: 04/06/2019 (0008) PAGE 1 Signed Report us Ludivina Callejas AIRBORNE SENSOR SPECIALIST IMG US OB ORDERABLES Final Re sult documented in this encounter Visit Diagnoses Not on filedocumented in this encounter Care Teams Client Care Consultant Relationship Specialty Start Date End Date Unknown, Provider, PCP - General 05/20/11 06/27/19 Juany Landon ARNP [address] [place] [address] PCP - General 06/28/19 documented as of this encounter
--- OUTSIDE RECORDS SUMMARY | 2024-11-05 16:36 | XMS_ITS | Encounter Summary ---
Author Organization [facility] [place] [address] Care Team Providers Care Marketing And Development Coordinator Name Role Phone Palmira Hartley APRN Primary Care Provider [phone] Reason for Visit * Reason Comments Other Had surgery schedule d in [place] for tonsillectomy. Has had ct scan and a layrngoscopy. Has taken 10 oral abx has done nothing for swelling of R tonsil. * Consultation (Routine) - Closed Specialty Diagnoses / Procedures Referred By Gregg barraza Referred To Contact Otolaryngology Diagnoses Tonsil asymmetry Palmira Hartley APRN [address] [place] [address] [facility] [address] [place] [phone] Referral ID Status Reason Start Date Expiration Date V isits Requested Visits Authorized [id number] Closed Consult, Test & Treat PCP Updated and/or Approved 04/12/2023 04/12/2024 12 12 Encounter Details Date Type Department Care Team (Late st Contact Info) Description 05/30/2023 10:20 AM EDT Office [place] [address] Tito Lamb III, MD [facility] [place] [address] Tonsil asymmetry Social History Tobacco Use Types [...] Visit: 05/30/2023 Location of Visit: Otolaryngology Clinic, [facility] Patient: Juany Tristan ([id number]; 1985) Primary Care Provider: Palmira Hartley APRN [...] Sulfa (sulfonamide antibiotics) Social History: [place] in [place] [address], Tobacco:Vape Alcohol:Yes Other: Immunizations UTD. Family History: [...] adenoids documented in this encounter Care Teams Marketing And Development Coordinator Relationship Specialty Start Date End Date Palmira Hartley APRN [address] [place] [address] PCP - General Family Medicine 02/25/22 documented as of this encounter
--- OUTSIDE RECORDS SUMMARY | 2024-11-05 16:36 | XMS_ITS | Encounter Summary ---
[place] [address] Care Team Providers Care Procurement Forester Name Role Phone Palmira Hartley APRN Primary Care Provider [phone] Encounter Details Date Type Department Care Team (Late st Contact Info) Description 07/14/2023 Telephone [place] [phone] Katia Ordaz RN Social History Tobacco Use Types Packs/Day Years Used Date Smoking Tobacco: Former Cigarettes e-Cigarettes Smokeless Tobacco: Never Alcohol Use Standard Drinks/Week Comments Yes 2 (1 standard drink = 0.6 oz pur e alcohol) twisted tea x2/daily [facility] Inpatient Questions Answer Date Recorded Does Anyone [...] on filedocumented in this encounter Care Teams Procurement Forester Relationship Specialty Start Date End Date Palmira Hartley APRN [address] [place] [address] PCP - General Family Medicine 02/25/22 documented as of this encounter
--- OUTSIDE RECORDS SUMMARY | 2024-11-05 16:36 | XMS_ITS | Encounter Summary ---
[place] [address] Care Team Providers Care Gas Regulator Repairer Name Role Phone Palmira Hartley APRN Primary Care Provider [phone] Encounter Details Date Type Department Care Team (Late st Contact Info) Description 07/19/2023 [place]phone [place] [phone] Katia Ordaz RN Social History Tobacco Use Types Packs/Day Years Used Date Smoking Tobacco: Former Cigarettes e-Cigarettes Smokeless Tobacco: Never Alcohol Use Standard Drinks/Week Comments Yes 2 (1 standard drink = 0.6 oz pur e alcohol) twisted tea x2/daily [facility] Inpatient Questions Answer Date Recorded Does [...] on filedocumented in this encounter Care Teams Gas Regulator Repairer Relationship Specialty Start Date End Date Palmira Hartley APRN [address] [place] [address] PCP - General Family Medicine 02/25/22 documented as of this encounter
--- OUTSIDE RECORDS SUMMARY | 2024-11-05 16:36 | XMS_ITS | Encounter Summary ---
Author Organization [facility] Address [address] [place] [address] Care Team Providers Care Slash Trimmer Name Role Phone Unknown, Provider Primary Care Provider Unasugar ilable Encounter Details Date Type Department Care Team (Late st Contact Info) Description 06/07/2012 Results Only [facility] - [facility] [address] [place], [place] [address] Erik Billings, [facility] [address] [place] [phone] Social History Tobacco Use Types Packs/Day Years [...] ? SHAYNA GOODE ? Accession #: ? [id number] : ? 1985 (Age: 27) ??F ?Collect Date: ? 06/07/2012 Location: ? [facility] ? Receive Date: ? 06/08/2012 Provider: ?ERIK BILLINGS SKIVER COUNTER Copy to: ? Specimen/Source: ?Pap Test, Cervix/Endocervix, [...] Report [facility] 06/07/2012 06/08/2012 Erik Billings SKIVER COUNTER PATHOLOGY ORDERABLES Final R esult [facility] [address] [place] [address] documented in this encounter Visit Diagnoses Not on filedocumented in this encounter Care Teams Slash Trimmer Relationship Specialty Start Date End Date Unknown, Provider, PCP - General 05/20/11 06/27/19 documented as of this encounter
--- OUTSIDE RECORDS SUMMARY | 2024-11-05 16:36 | XMS_ITS | Encounter Summary ---
[place] [address] Care Team Providers Care Freight Unloader Name Role Phone Palmira Hartley APRN Primary Care Provider [phone] Reason for Referral * Consultation (Routine) - Closed Specialty Diagnoses / Procedures Referred By Gregg barraza Referred To Contact Otolaryngology Diagnoses Tonsil asymmetry Palmira Hartley APRN [address] [place] [address] [facility] Otol[facility]ology [address] [place] [phone] Referral ID Status Reason Start Date Expiration Date V isits Requested Visits Authorized [id number] Closed Consult, Test & Treat PCP Updated and/or Approved 04/12/2023 04/12/2024 12 12 Encounter Details Date Type Department Care Team (Late st Contact Info) Description 04/19/2023 Transcribe Orders eDH Incoming Referrals [phone] Palmira Hartley APRN [address] [place], [place] [id number] Tonsil asymmetry Social History Tobacco Use Types [...] adenoids documented in this encounter Care Teams Freight Unloader Relationship Specialty Start Date End Date Palmira Hartley APRN [address] [place] [address] PCP - General Family Medicine 02/25/22 documented as of this encounter
--- OUTSIDE RECORDS SUMMARY | 2024-11-05 16:36 | XMS_ITS | Encounter Summary ---
Author Organization [facility] Address [address] [place] [address] Care Team Providers Care Snuff Drier Name Role Phone Unknown, Provider Primary Care Provider Unava ilable Encounter Details Date Type Department Care Team (Late st Contact Info) Description 11/12/2013 Results Only [facility] Laboratory Services - [facility] ([facility]) [address] [place], [place] [address] Ita Billings, [facility] [address] [place] [phone] Social History Tobacco Use Types Packs/Day Years [...] ? SHAYNA GOODE ? Accession #: ? [id number] : ? 1985 (Age: 28) ??F ?Collect Date: ? 11/12/2013 Location: ? [facility] ? Receive Date: ? 11/13/2013 Provider: ?ITA BILLINGS AUTO TUNE UP MECHANIC Copy to: ?NATALIA LARA DO ? Specimen/Source: [...] Report [facility] 11/12/2013 11/13/2013 Ita Billings AUTO TUNE UP MECHANIC PATHOLOGY ORDERABLES Final R esult [facility] [address] [place] [address] documented in this encounter Visit Diagnoses Not on filedocumented in this encounter Care Teams Snuff Drier Relationship Specialty Start Date End Date Unknown, Provider, PCP - General 05/20/11 06/27/19 documented as of this encounter
--- OUTSIDE RECORDS SUMMARY | 2024-11-05 16:36 | XMS_ITS | Encounter Summary ---
Author Organization [facility] [place] [address] Care Team Providers Care Palaeontologist Name Role Phone Naeem Palmira GOOD Primary Care Provider [phone] Encounter Details Date Type Department Care Team (Late st Contact Info) Description 07/14/2023 Orders [place] [address] Isabelle Salmon MD [facility] [place] [address] Social History Tobacco Use Types Packs/Day Years [...] on filedocumented in this encounter Care Teams Palaeontologist Relationship Specialty Start Date End Date Palmira Hartley APRN [address] [place] [address] PCP - General Family Medicine 02/25/22 documented as of this encounter
--- OUTSIDE RECORDS SUMMARY | 2024-11-05 16:36 | XMS_ITS | Encounter Summary ---
Author Organization [facility] Address [address] [place] [address] Care Team Providers Care Gas Analyst Name Role Phone Unknown, Provider Primary Care Provider Juany Reeves Primary Care Provider Un available Encounter Details Date Type Department Care Team (Late st Contact Info) Description 09/02/2016 Historical Results Only [facility] - Main [address] [id number] Ellyn Quarles MD [address] [place] [address], [address] [place] [address] Social History Tobacco Use Types [...] 88 - 139 mg/dL 09/02/2016 13:57 EST [facility] Comment: ACOG RECOMMENDED GUIDELINES Greater than or equal to ??140 mg/dL suspect gestational diabetes. ?? Recommend confirmation with 3 hr GTT 09/02/2016 12:4 4 EST 09/02/2016 12:44 EST Narrative [facility] - 09/02/2016 13:57 EST Does PT Have a Latex Allergy? NO us Ellyn Quarles MD CHEMISTRY & BLOOD GAS ORDERABLE S Final Result [facility] * [facility] (09/02/2016 12:44 EST) [facility] 11.6 11.2 - 15.7 g/dl 09/02/2016 13:40 EST [facility] 09/02/2016 12:4 4 EST 09/02/2016 12:44 EST Narrative [facility] - 09/02/2016 13:40 EST Does PT Have a Latex Allergy? NO us Ellyn Quarles MD HEMATOLOGY & PF4 ORDERABLES Fin al Result [facility] documented in this encounter Visit Diagnoses Not on filedocumented in this encounter Care Teams Gas Analyst Relationship Specialty Start Date End Date Unknown, Provider, PCP - General 05/20/11 06/27/19 Juany Landon ARNP [address] [address] PCP - General 06/28/19 documented as of this encounter
--- OUTSIDE RECORDS SUMMARY | 2024-11-05 16:36 | XMS_ITS | Encounter Summary ---
[place] [address] Care Team Providers Care Stone Repairer Name Role Phone Palmira Hartley APRN Primary Care Provider [phone] Encounter Details Date Type Department Care Team (Late st Contact Info) Description 06/27/2023 Telephone [place] [id number] Maral Damico Social History Tobacco Use Types [...] on filedocumented in this encounter Care Teams Stone Repairer Relationship Specialty Start Date End Date Palmira Hartley APRN [address] [place] [address] PCP - General Family Medicine 02/25/22 documented as of this encounter
--- OUTSIDE RECORDS SUMMARY | 2024-11-05 16:36 | XMS_ITS | Encounter Summary ---
Author Organization [facility] Address [address] [place] [address] Care Team Providers Care Senior Process Engineer Name Role Phone Unknown, Provider Primary Care Provider Juany Reeves Primary Care Provider Un available Encounter Details Date Type Department Care Team (Late st Contact Info) Description 10/18/2016 Historical Results Only [facility] Radiology Results [address] [place] [id number] Queta Tiwari MD [address] [place] [address], [address] [place] [address] Social History Tobacco Use Types [...] report. ??Report also available in PACS. ? LASER ENGINEER:kad ?Reported By: Po Forrest MD ? CC: ? Transcribed Date/Time: 10/19/2016 (1150) ? Waterproofer Helper: OVIDIO ? Printed Date/Time: 04/06/2019 (0008) ? PAGE 1 ? Signed Report ? Procedure Note Po Forrest MD - 08/28/2019 EXAM: ULTRASOUND/OB LEVEL 2 FOLLOW UP EX. D/ (1339) CLINICAL INFORMATION: 013.3 ELEVATED BLOOD PRESSURE AFFECTING IN THIRD TRIMESTER, ANTEPARTUM CHECK GROWTH AND DEVELOPMENT See attached report. Report also available in PACS. LASER ENGINEER:[email or web address] Reported By: Po Forrest MD CC: Transcribed Date/Time: 10/19/2016 (2378) Waterproofer Helper: OVIDIO Printed Date/Time: 04/06/2019 (2420) PAGE 1 Signed Report us Queta Tiw[facility] MD [facility] OB ORDERABLES Final Re sult * URIC ACID (10/18/2016 9:00 EST) [facility] URIC ACID - [facility] 3.0 2.6 - 7.2 mg/dl 10/18/2016 9:33 EST [facility] 10/18/2016 9:00 EST 10/18/2016 9:09 EST Narrative [facility] - 10/18/2016 9:33 EST Does PT Have a Latex Allergy? NO Barbra Regan MD CHEMISTRY & BLOOD GAS ORDERABL ES Final Result Performing Organization Address City/[facility]/ZIP Co de Phone Number [facility] * LDH (10/18/2016 9:00 EST) [facility] LDH - [facility] 150 100 - 190 U/L 10/18/2016 9:33 EST [facility] 10/18/2016 9:00 EST 10/18/2016 9:09 EST [facility] - 10/18/2016 9:33 EST Does PT Have a Latex Allergy? NO Barbra Regan MD CHEMISTRY & BLOOD GAS ORDERABL ES Final Result [facility] * (ABNORMAL) COMPREHENSIVE METABOLIC PANEL (CMP) (10/18/2016 9:00 EST) [facility] Albumin % 2.6(L) 3.4 - 5.0 g/dL 10/18/2016 9:33 [facility] ALKALINE PHOSPHATASE - [facility] 110 41 - 126 U/L 10/18/2016 9:33 [facility] BILIRUBIN TOTAL 0.2 0.0 - 1.0 mg/dL 10/18/2016 9:33 [facility] BUN - [facility] 5(L) 7 - 18 mg/dL 10/18/2016 9:33 [facility] CALCIUM - [facility] 8.6 8.5 - 10.1 mg/dL 10/18/2016 9:33 [facility] Chloride 108(H) 98 - 107 mEq/L 10/18/2016 9:33 [facility] CO2 Total 22 21 - 32 mEq/L 10/18/2016 9:33 [facility] CREATININE 0.49(L) 0.5 - 1.3 mg/dL 10/18/2016 9:33 [facility] eGFR >60 10/18/2016 9:33 [facility] Comment: Chronic renal impairment is defined as GFR <60 Multiply result by 1.210 for patients. eGFR calculated using the IDMS-traceable MDRD Study Equation. ??(effective 08/25/2014) Anion Gap 9 5 - 15 10/18/2016 9:33 [facility] GLUCOSE - [facility] 93 70 - 100 mg/dL 10/18/2016 9:33 [facility] Potassium 3.7 3.5 - 5.0 mEq/L 10/18/2016 9:33 [facility] Sodium 139 135 - 145 mEq/L 10/18/2016 9:33 [facility] TOTAL PROTEIN - [facility] 6.8 6.4 - 8.2 gm/dl 10/18/2016 9:33 [facility] SGOT/AST - [facility] 9(L) 10 - 37 U/L 10/18/2016 9:33 [facility] SGPT/ALT - [facility] 13 12 - 78 U/L 10/18/2016 9:33 [facility] 10/18/2016 9:00 EST 10/18/2016 9:09 EST [facility] - 10/18/2016 9:33 EST Does PT Have a Latex Allergy? NO us Barbra Regan MD CHEMISTRY & BLOOD GAS ORDERABL ES Final Result [facility] * (ABNORMAL) COMPLETE BLOOD COUNT WITH DIFFERENTIAL (AUTO) (10/18/2016 9:00 EST) ABSOLUTE NEUTROPHIL COUN - [facility] 10.42(H) 1.7 - 7.0 10e3/ul 10/18/2016 9:16 [facility] BASO # - [facility] 0.03 0.0 - 0.3 10e3/uL 10/18/2016 9:16 [facility] BASO % - [facility] 0 0 - 2 % 10/18/2016 9:16 [facility] EOS # - [facility] 0.17 0.05 - 0.5 10e3/uL 10/18/2016 9:16 [facility] EOS % - [facility] 1 0 - 5 % 10/18/2016 9:16 [facility] GRAN % - [facility] 73 40 - 80 % 10/18/2016 9:16 [facility] HEMATOCRIT - [facility] 35.0 34.0 - 47.0 % 10/18/2016 9:16 [facility] HEMOGLOBIN - [facility] 12.2 11.2 - 15.7 g/dl 10/18/2016 9:16 [facility] IG# - [facility] 0.14(H) 0 - 0.07 10e3/uL 10/18/2016 9:16 [facility] IG% - [facility] 1.0(H) 0 - 0.9 % 10/18/2016 9:16 [facility] LYMPH # - [facility] 2.67 0.9 - 2.9 10e3/uL 10/18/2016 9:16 [facility] LYMPH% - [facility] 19(L) 20 - 40 % 10/18/2016 9:16 [facility] MEAN CORPUSCULAR HGB - [facility] 30.0 26 - 34 pg 10/18/2016 9:16 [facility] MEAN CORPUSCULAR HGB CONC - [facility] 34.9 31 - 36 g/dL 10/18/2016 9:16 [facility] MEAN CELL VOLUME - [facility] 86.2 77 - 100 fl 10/18/2016 9:16 [facility] MONO # - [facility] 0.92(H) 0.3 - 0.9 10e3/uL 10/18/2016 9:16 [facility] MONO% - [facility] 6 0 - 12 % 10/18/2016 9:16 [facility] PLATELET COUNT 316 150 - 400 10e3/ul 10/18/2016 9:16 [facility] RED BLOOD COUNT - [facility] 4.06 3.8 - 5.2 10e6/ul 10/18/2016 9:16 [facility] RED CELL DISTRI WIDTH - [facility] 13.1 11.8 - 15.6 % 10/18/2016 9:16 [facility] WHITE BLOOD COUNT - [facility] 14.4(H) 3.5 - 10.5 10e3/ul 10/18/2016 9:16 [facility] 10/18/2016 9:00 EST 10/18/2016 9:10 EST [facility] - 10/18/2016 9:16 EST Does PT Have a Latex Allergy? NO Barbra Regan MD HEMATOLOGY & PF4 ORDERABLES Fi nal Result [facility] * PROTEIN/CREATININE RATIO, URINE (10/18/2016 8:44 EST) URINE PROTEIN: CREAT RATIO - [facility] 0.175 0 - 0.2 10/18/2016 9:41 [facility] 10/18/2016 8:44 EST 10/18/2016 9:19 EST Narrative [facility] - 10/18/2016 9:41 EST Does PT Have a Latex Allergy? NO us Barbra Regan MD URINALYSIS ORDERABLES Final Re sult [facility] * (ABNORMAL) PROTEIN, TOTAL, RANDOM, URINE (10/18/2016 8:44 EST) URINE PROTEIN RANDOM - [facility] 27.8(H) 0 - 11.9 mg/DL 10/18/2016 9:41 EST [facility] 10/18/2016 8:44 EST 10/18/2016 9:19 EST Narrative [facility] - 10/18/2016 9:41 EST Does PT Have a Latex Allergy? NO us Barbra Regan MD URINALYSIS ORDERABLES Final Re sult Performing Organization Address [facility]/ZIP Co de Phone Number [facility] * (ABNORMAL) CREATININE, URINE RANDOM (10/18/2016 8:44 EST) URINE CREATININE RANDOM - [facility] 158.00(H) 30 - 125 mg/dL 10/18/2016 9:41 EST [facility] 10/18/2016 8:44 EST 10/18/2016 9:19 EST Narrative [facility] - 10/18/2016 9:41 EST Does PT Have a Latex Allergy? NO us Barbra Regan MD URINALYSIS ORDERABLES Final Re sult Performing Organization Address City/[facility]/ZIP Co de Phone Number [facility] documented in this encounter Visit Diagnoses Not on filedocumented in this encounter Care Teams Senior Process Engineer Relationship Specialty Start Date End Date Unknown, Provider, PCP - General 05/20/11 06/27/19 Juany Landon ARNP [address] [address] PCP - General 06/28/19 documented as of this encounter
--- OUTSIDE RECORDS SUMMARY | 2024-11-05 16:36 | XMS_ITS | Encounter Summary ---
Author Organization [facility] [place] [address] Care Team Providers Care Smoking Pipe Coater Name Role Phone Naeem Palmira GOOD Primary Care Provider [phone] Encounter Details Date Type Department Care Team (Late st Contact Info) Description 07/19/2023 Orders [place] [address] Isabelle Salmon MD [facility] [place] [address] Social History Tobacco Use Types Packs/Day Years Used Date Smoking Tobacco: Former Cigarettes e-Cigarettes Smokeless Tobacco: Never Alcohol Use Standard Drinks/Week Comments Yes 2 (1 standard drink = 0.6 oz pur e alcohol) twisted tea x2/daily [facility] Inpatient Questions Answer Date Recorded Does Anyone [...] on filedocumented in this encounter Care Teams Smoking Pipe Coater Relationship Specialty Start Date End Date Palmira Hartley APRN [address] [place] [address] PCP - General Family Medicine 02/25/22 documented as of this encounter
--- OUTSIDE RECORDS SUMMARY | 2024-11-05 16:36 | XMS_ITS | Encounter Summary ---
Author Organization [facility] [place] [address] [place] [address] Care Team Providers Care Community Service Officer Coordinator Name Role Phone Palmira Hartley APRN Primary Care Provider [phone] Encounter Details Date Type Department Care Team [...] on filedocumented in this encounter Care Teams Community Service Officer Coordinator Relationship Specialty Start Date End Date Palmira Hartley APRN [address] [place] [address] PCP - General Family Medicine 02/25/22 documented as of this encounter
--- OUTSIDE RECORDS SUMMARY | 2024-11-05 16:36 | XMS_ITS | Encounter Summary ---
Author Organization [facility] Address [address] [place] [address] Care Team Providers Care Drama Therapist Name Role Phone Unknown, Provider Primary Care Provider Juany Reeves Primary Care Provider Un available Encounter Details Date Type Department Care Team (Late st Contact Info) Description 10/14/2016 Historical Results Only [facility] - [facility] Lab - Main [place] [address] [place] [address] Mitzi Wiley MD [address] [place] [address]-, [address] [place] [address] Social History Tobacco Use Types [...] (ABNORMAL) URIC ACID (10/14/2016 12:45 EST) Pathologist [facility] URIC ACID - [facility] 2.4(L) 2.6 - 7.2 mg/dl 10/14/2016 13:10 [facility] 10/14/2016 12:4 5 EST 10/14/2016 12:45 EST Narrative [facility] - 10/14/2016 13:10 EST ORDERED ROUT, NURSE WANTED STAT AFTER PATIENT DRAWN. COMMENTS: Preg 33.6 with elevated BP Does PT Have a Latex Allergy? NO us Mitzi Wiley MD CHEMISTRY & BLOOD GAS ORDERAB LES Final Result [facility] * (ABNORMAL) COMPREHENSIVE METABOLIC PANEL (CMP) (10/14/2016 12:45 EST) [facility] Albumin % 2.5(L) 3.4 - 5.0 g/dL 10/14/2016 13:10 [facility] ALKALINE PHOSPHATASE - [facility] 101 41 - 126 U/L 10/14/2016 13:10 [facility] BILIRUBIN TOTAL 0.2 0.0 - 1.0 mg/dL 10/14/2016 13:10 [facility] BUN - [facility] 6(L) 7 - 18 mg/dL 10/14/2016 13:10 [facility] CALCIUM - [facility] 8.8 8.5 - 10.1 mg/dL 10/14/2016 13:10 [facility] Chloride 105 98 - 107 mEq/L 10/14/2016 13:10 [facility] CO2 Total 22 21 - 32 mEq/L 10/14/2016 13:10 [facility] CREATININE 0.45(L) 0.5 - 1.3 mg/dL 10/14/2016 13:10 [facility] eGFR >60 10/14/2016 13:10 [facility] Comment: Chronic renal impairment is defined as GFR <60 Multiply result by 1.210 for patients. eGFR calculated using the IDMS-traceable MDRD Study Equation. ??(effective 08/25/2014) Anion Gap 11 5 - 15 10/14/2016 13:10 [facility] GLUCOSE - [facility] 79 70 - 100 mg/dL 10/14/2016 13:10 [facility] Potassium 3.9 3.5 - 5.0 mEq/L 10/14/2016 13:10 [facility] Sodium 138 135 - 145 mEq/L 10/14/2016 13:10 [facility] TOTAL PROTEIN - [facility] 5.9(L) 6.4 - 8.2 gm/dl 10/14/2016 13:10 [facility] SGOT/AST - [facility] 14 10 - 37 U/L 10/14/2016 13:10 [facility] SGPT/ALT - [facility] 15 12 - 78 U/L 10/14/2016 13:10 [facility] 10/14/2016 12:4 5 EST 10/14/2016 12:45 EST [facility] - 10/14/2016 13:10 EST ORDERED ROUT, NURSE WANTED STAT AFTER PATIENT DRAWN. COMMENTS: Preg 33.6 with elevated BP Does PT Have a Latex Allergy? NO us Mitzi Wiley MD CHEMISTRY & BLOOD GAS ORDERAB LES Final Result [facility] * (ABNORMAL) COMPLETE BLOOD COUNT WITH DIFFERENTIAL (AUTO) (10/14/2016 12:45 EST) ABSOLUTE NEUTROPHIL COUN - [facility] 9.29(H) 1.7 - 7.0 10e3/ul 10/14/2016 12:51 [facility] BASO # - [facility] 0.02 0.0 - 0.3 10e3/uL 10/14/2016 12:51 [facility] BASO % - [facility] 0 0 - 2 % 10/14/2016 12:51 [facility] EOS # - [facility] 0.16 0.05 - 0.5 10e3/uL 10/14/2016 12:51 [facility] EOS % - [facility] 1 0 - 5 % 10/14/2016 12:51 [facility] GRAN % - [facility] 70 40 - 80 % 10/14/2016 12:51 [facility] HEMATOCRIT - [facility] 33.9(L) 34.0 - 47.0 % 10/14/2016 12:51 [facility] HEMOGLOBIN - [facility] 11.6 11.2 - 15.7 g/dl 10/14/2016 12:51 [facility] IG# - [facility] 0.13(H) 0 - 0.07 10e3/uL 10/14/2016 12:51 [facility] IG% - [facility] 1.0(H) 0 - 0.9 % 10/14/2016 12:51 [facility] LYMPH # - [facility] 2.84 0.9 - 2.9 10e3/uL 10/14/2016 12:51 [facility] LYMPH% - [facility] 21 20 - 40 % 10/14/2016 12:51 [facility] MEAN CORPUSCULAR HGB - [facility] 29.6 26 - 34 pg 10/14/2016 12:51 [facility] MEAN CORPUSCULAR HGB CONC - [facility] 34.2 31 - 36 g/dL 10/14/2016 12:51 [facility] MEAN CELL VOLUME - [facility] 86.5 77 - 100 fl 10/14/2016 12:51 [facility] MONO # - [facility] 0.87 0.3 - 0.9 10e3/uL 10/14/2016 12:51 [facility] MONO% - [facility] 7 0 - 12 % 10/14/2016 12:51 [facility] PLATELET COUNT 318 150 - 400 10e3/ul 10/14/2016 12:51 [facility] RED BLOOD COUNT - [facility] 3.92 3.8 - 5.2 10e6/ul 10/14/2016 12:51 [facility] RED CELL DISTRI WIDTH - [facility] 13.1 11.8 - 15.6 % 10/14/2016 12:51 [facility] WHITE BLOOD COUNT - [facility] 13.3(H) 3.5 - 10.5 10e3/ul 10/14/2016 12:51 EST [facility] 10/14/2016 12:4 5 EST 10/14/2016 12:46 EST Narrative [facility] - 10/14/2016 12:51 EST COMMENTS: Preg 33.6 with elevated BP Does PT Have a Latex Allergy? NO Mitzi Wiley MD HEMATOLOGY & PF4 ORDERABLES F inal Result Performing Organization Address City/[facility]/ZIP Co de Phone Number [facility] * PROTEIN/CREATININE RATIO, URINE (10/14/2016 10:59 EST) URINE PROTEIN: CREAT RATIO - [facility] 0.179 0 - 0.2 10/14/2016 14:56 EST [facility] 10/14/2016 10:5 9 EST 10/14/2016 14:11 EST Mitzi Wiley MD URINALYSIS ORDERABLES Final R esult [facility] documented in this encounter Visit Diagnoses Not on filedocumented in this encounter Care Teams Drama Therapist Relationship Specialty Start Date End Date Unknown, Provider, PCP - General 05/20/11 06/27/19 Juany Landon ARNP [address] [address] PCP - General 06/28/19 documented as of this encounter
--- OUTSIDE RECORDS SUMMARY | 2024-11-05 16:36 | XMS_ITS | Encounter Summary ---
Author Organization [facility] Address [address] [place] [address] Care Team Providers Care Tc Operator Name Role Phone Unknown, Provider Primary Care Provider Shayna Reeves Primary Care Provider Un available Encounter Details Date Type Department Care Team (Late st Contact Info) Description 04/29/[address] [facility] Radiology Results [address] [place], [place] [id number] Ludivina Callejas, DENTAL INTERN [address] [facility] [place], [address] [place] [address] Social History Tobacco Use Types [...] report. ??Report also available in PACS. ? DENTAL OFFICER:dnl ?Reported By: Po Forrest MD ? CC: ? Transcribed Date/Time: 05/02/2016 (950) ? Refrigeration Lead: BETTYE ? Printed Date/Time: 04/05/2019 (0107) ? PAGE 1 ? Signed Report ? Procedure Note Po Forrest MD - 08/28/2019 EXAM: ULTRASOUND/TRANSVAGINAL - OB (LEVEL EX. D/ (1513) CLINICAL INFORMATION: DATING AND VIABILITY Z34.90 See attached report. Report also available in PACS. DENTAL OFFICER:dnl Reported By: Po Forrest MD CC: Transcribed Date/Time: 05/02/2016 (950) Refrigeration Lead: BETTYE Printed Date/Time: 04/05/2019 (0102) PAGE 1 Signed Report us Ludivina Callejas DENTAL INTERN IMG US OB ORDERABLES Final Re sult * PAP TEST (04/29/2016) 04/29/2016 05/02/2016 10: [address] [facility] - 05/06/2016 16:31 EDT ----- ------- Name: RUPASHAYNA ?: [birth year] ?Age/Sex: 34/F ?Unit#: [id number] ? Loc: AGO ? Status: REG POV ?? Reg Date: 04/29/16 ? Pt.Phone Number: ? ----- ------- This is an Amended or Addendum report. Any previous versions are stored internally and are available if necessary by calling the [facility] Pathology Dept at [phone] Specimen: [id number] ?STATUS: SOUT ?Spec Date:04/29/16 ? Physician Copies: ?Ludivina Callejas ? Tissues: ? Cervical/Endo Pap ?SHAYNA HALL CPT: 82896 ?? Units: ??1 ----- ------- ? CYTOLOGY [...] diagnostics findings. ----- ------- Patient: SHAYNA GOODE ?#[id number] ? (Continued) ----- ------- Specimen: [id number] ?Received: 05/02/16-1023 ?(Continued) ? HPV 16 ?? [...] confirmed the above diagnosis. Test Performed by [facility], [address] [place] [address] Export Freight Clerk: Alysha Kline MD PHD ----- ------- us Ludivina Callejas DENTAL INTERN PATHOLOGY ORDERABLES Final Re sult [facility] documented in this encounter Visit Diagnoses Not on filedocumented in this encounter Care Teams Tc Operator Relationship Specialty Start Date End Date Unknown, Provider, PCP - General 05/20/11 06/27/19 Shayna Hall ARNP [address] [address] PCP - General 06/28/19 documented as of this encounter
--- OUTSIDE RECORDS SUMMARY | 2024-11-05 16:36 | XMS_ITS | Encounter Summary ---
Author Organization [facility] Address [address] [place] [address] Care Team Providers Care Electric Motor Winders Assembler Name Role Phone Unknown, Provider Primary Care Provider Juany Reeves Primary Care Provider Un available Encounter Details Date Type Department Care Team (Late st Contact Info) Description 07/05/2016 Historical Results Only [facility] Radiology Results [address] [place] [id number] Mitzi Wiley MD [address] [facility], [address] [place] [address] Social History Tobacco Use Types [...] CC: ? Transcribed Date/Time: 07/06/2016 (1132) ? Mild Disabilities Teacher: OVIDIO ? Printed Date/Time: 04/05/2019 (1787) ? PAGE 1 ? Signed Report ? Procedure Note Reji Townsend MD - 08/28/2019 EXAM: ULTRASOUND/OB LEVEL 2 WITH TRANSVAG EX. D/ (1556) CLINICAL INFORMATION: Z33.1 GROWTH AND DEV, DIONY 11/27/16 BY LMP 02/21/16 See attached report. Report also available in PACS. BBL:jing Reported By: Reji Townsend MD CC: Transcribed Date/Time: 07/06/2016 (1132) Mild Disabilities Teacher: OVIDIO Printed Date/Time: 04/05/2019 (8085) PAGE 1 Signed Report us Mitzi Wiley MD IMG OB ORDERABLES Final Re sult documented in this encounter Visit Diagnoses Not on filedocumented in this encounter Care Teams Electric Motor Winders Assembler Relationship Specialty Start Date End Date Unknown, Provider, PCP - General 05/20/11 06/27/19 Juany Landon ARNP [address] [address] PCP - General 06/28/19 documented as of this encounter
--- OUTSIDE RECORDS SUMMARY | 2024-11-05 16:36 | XMS_ITS | Encounter Summary ---
Author Organization [facility] Address [address] [place] [address] Care Team Providers Care Urogynaecologist Name Role Phone Unknown, Provider Primary Care Provider Unava ilable Encounter Details Date Type Department Care Team (Latest Contact Info) Description 09/19/2016 6:17 EST - 09/19/2016 23:59 EST Hospital Encounter [facility] [address] [place] [address] Unknown, Provider, Discharge Disposition: Home or Self [...] Code Departure Means Destination Home or Self Retirement documented in this encounter Plan of Treatment Not on file documented as of this encounter Visit Diagnoses Not on filedocumented in this encounter Care Teams Urogynaecologist Relationship Specialty Start Date End Date Unknown, Provider, PCP - General 05/20/11 06/27/19 documented as of this encounter
--- OUTSIDE RECORDS SUMMARY | 2024-11-05 16:36 | XMS_ITS | Encounter Summary ---
Author Organization [facility] [place] [address] Care Team Providers Care Network Field Engineer Name Role Phone Palmira Hartley APRN Primary Care Provider [phone] Encounter Details Date Type Department Care Team [...] on filedocumented in this encounter Care Teams Network Field Engineer Relationship Specialty Start Date End Date Palmira Hartley APRN [address] [place], [place] [address] PCP - General Family Medicine 02/25/22 documented as of this encounter
--- OUTSIDE RECORDS SUMMARY | 2024-11-05 16:36 | XMS_ITS | Encounter Summary ---
Author Organization [facility] Address [address] [place] [address] Care Team Providers Care Law Librarian Name Role Phone Unknown, Provider Primary Care Provider Juany Reeves Primary Care Provider Un available Encounter Details Date Type Department Care Team (Late st Contact Info) Description 10/07/2016 Historical Results Only [facility] Lab - Main [address] [address] Barbra Regan MD [address] [facility] [address] [place] [address] Social History Tobacco Use Types Packs/Day Years [...] (10/07/2016 11:50 EST) URINE PROTEIN RANDOM - [facility] 11.9 0 - 11.9 mg/DL 10/07/2016 12:26 EST [facility] 10/07/2016 11:5 0 EST 10/07/2016 12:00 EST Narrative [facility] - 10/07/2016 12:26 EST Does PT Have a Latex Allergy? NO us Barbra Regan MD URINALYSIS ORDERABLES Final Re sult [facility] documented in this encounter Visit Diagnoses Not on filedocumented in this encounter Care Teams Law Librarian Relationship Specialty Start Date End Date Unknown, Provider, PCP - General 05/20/11 06/27/19 Juany Landon ARNP [address] [address] PCP - General 06/28/19 documented as of this encounter
--- OUTSIDE RECORDS SUMMARY | 2024-11-05 16:36 | XMS_ITS | Encounter Summary ---
Author Organization [facility] [place] [address] [place] [address] Care Team Providers Care Rail Director Name Role Phone Palmira Hartley APRN Primary Care Provider [phone] Reason for Visit * Reason Comments Alopecia * Consultation (Routine) - Closed Specialty Diagnoses / Procedures Referred By Gregg barraza Referred To Contact Dermatology Diagnoses Nonscarring hair loss, unspecified Alopecia; Est. Patient-Notes Received Procedures Consult Palmira Hartley APRN [address] [place] [address] Po Dooley MD [address] [place] [address], [facility] [address] Referral ID Status Reason Start Date Expiration Date V isits Requested Visits Authorized [id number] Closed Consult, Test & Treat PCP Updated and/or Approved 12/28/2021 12/28/2022 12 12 Encounter Details Date Type Department Care Team (Late st Contact Info) Description 02/25/2022 1:45 PM EDT Office Visit Dermatology at [address] [phone] Po Dooley MD [address] [place] [address], [facility] [address] Alopecia areata Social History Tobacco [...] 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 She has had [...] areata documented in this encounter Care Teams Rail Director Relationship Specialty Start Date End Date Palmira Hartley APRN [address] [place] [address] PCP - General Family Medicine 02/25/22 documented as of this encounter
--- OUTSIDE RECORDS SUMMARY | 2024-11-05 16:36 | XMS_ITS | Encounter Summary ---
[place] [address] Care Team Providers Care Substation Technician Name Role Phone Palmira Hartley APRN Primary Care Provider [phone] Encounter Details Date Type Department Care Team (Late st Contact Info) Description 07/19/2023 Telephone [place] [phone] Katia Ordaz RN Social History Tobacco Use Types Packs/Day Years Used Date Smoking Tobacco: Former Cigarettes e-Cigarettes Smokeless Tobacco: Never Alcohol Use Standard Drinks/Week Comments Yes 2 (1 standard drink = 0.6 oz pur e alcohol) twisted tea x2/daily [facility] Inpatient Questions Answer Date Recorded [...] on filedocumented in this encounter Care Teams Substation Technician Relationship Specialty Start Date End Date Palmira Hartley APRN [address] [place] [address] PCP - General Family Medicine 02/25/22 documented as of this encounter
--- OUTSIDE RECORDS SUMMARY | 2024-11-05 16:36 | XMS_ITS | Encounter Summary ---
Author Organization [facility] Address [address] [place] [address] Care Team Providers Care Embryology Professor Name Role Phone Unknown, Provider Primary Care Provider Juany Reeves Primary Care Provider Un available Encounter Details Date Type Department Care Team (Late st Contact Info) Description 10/07/2016 Historical Results Only [facility] Lab - Main [address] [id number] Barbra Regan MD [address] [facility] [address] [place] [address] Social History Tobacco Use Types Packs/Day Years [...] (10/07/2016 11:50 EST) URINE CREATININE RANDOM - [facility] [place] 78.60 30 - 125 mg/dL 10/07/2016 12:26 EST [facility] 10/07/2016 11:5 0 EST 10/07/2016 12:00 EST Narrative [facility] - 10/07/2016 12:26 EST Does PT Have a Latex Allergy? NO us Barbra Regan MD URINALYSIS ORDERABLES Final Re sult [facility] documented in this encounter Visit Diagnoses Not on filedocumented in this encounter Care Teams Embryology Professor Relationship Specialty Start Date End Date Unknown, Provider, PCP - General 05/20/11 06/27/19 Juany Landon ARNP [address] [address] PCP - General 06/28/19 documented as of this encounter
--- OUTSIDE RECORDS SUMMARY | 2024-11-05 16:36 | XMS_ITS | Encounter Summary ---
[place] [address] Care Team Providers Care Valet Name Role Phone Palmira Hartley APRN Primary Care Provider Encounter Details Date Type Department Care Team (Late st Contact Info) Description 06/28/2023 Telephone [place] [phone] Katia Ordaz RN Social History Tobacco Use [...] on filedocumented in this encounter Care Teams Valet Relationship Specialty Start Date End Date Palmira Hartley APRN [address] [place] [address] PCP - General Family Medicine 02/25/22 documented as of this encounter
--- OUTSIDE RECORDS SUMMARY | 2024-11-05 16:36 | XMS_ITS | Encounter Summary ---
Author Organization [facility] Address [address] [place] [address] Care Team Providers Care Navigation Officer Name Role Phone Unknown, Provider Primary Care Provider Adilene ajcob Encounter Details Date Type Department Care Team (Late st Contact Info) Description 05/19/2011 Results Only [facility] Services - [facility] ([facility]) [address], [place] [address] Erik Billings, [facility] [address] [place] [phone] Social History Tobacco Use Types Packs/Day Years [...] ? SHAYNA GOODE ? Accession #: ? [id number] ? : ? 1985 (Age: 26) ??F ?Collect Date: ? 05/19/2011 ? Location: ? [facility] ? Receive Date: ? 05/20/2011 ? Provider: ?ERIK DEVON DIRECTOR PAYMENT ? Copy to: ?JUAN GREENFIELD BROOM BUILDER ? Specimen/Source: ?Pap Test, Cervix/Endocervix, ThinPrep Imaging [...] ALOK PEÑALOZA 05/19/2011 05/20/2011 us Erik Billings DIRECTOR PAYMENT PATHOLOGY ORDERABLES Final R esult ALOK PEÑALOZA [address] [place] [address] documented in this encounter Visit Diagnoses Not on filedocumented in this encounter Care Teams Navigation Officer Relationship Specialty Start Date End Date Unknown, Provider, PCP - General 05/20/11 06/27/19 documented as of this encounter
--- OUTSIDE RECORDS SUMMARY | 2024-11-05 16:36 | XMS_ITS | Encounter Summary ---
[place] [address] Care Team Providers Care Nurses' Association Counselor Name Role Phone Palmira Hartley APRN Primary Care Provider [phone] Encounter Details Date Type Department Care Team (Late st Contact Info) Description 07/14/2023 Telephone [place] [phone] Katia Ordaz RN Social History Tobacco Use Types Packs/Day Years Used Date Smoking Tobacco: Former Cigarettes e-Cigarettes Smokeless Tobacco: Never Alcohol Use Standard Drinks/Week Comments Yes 2 (1 standard drink = 0.6 oz pur e alcohol) twisted tea x2/daily [facility] Inpatient Questions Answer Date Recorded Does [...] to alert to prescription ordered. 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 documented in this encounter Plan of Treatment Not on file documented as of this encounter Visit Diagnoses Not on filedocumented in this encounter Care Teams Nurses' Association Counselor Relationship Specialty Start Date End Date Palmira Hartley APRN [address] [place] [address] PCP - General Family Medicine 02/25/22 documented as of this encounter
--- OUTSIDE RECORDS SUMMARY | 2024-11-05 16:36 | XMS_ITS | Encounter Summary ---
Author Organization [facility] Address [address] [place] [address] Care Team Providers Care Repeat Chief Name Role Phone Unknown, Provider Primary Care Provider Unava ilable Encounter Details Date Type Department Care Team (Latest Contact Info) Description 04/29/2016 7:48 EDT - 04/29/2016 23:59 EDT Hospital Encounter [facility] [address] [place] [address] Unknown, Provider, Discharge Disposition: Home or Self [...] on filedocumented in this encounter Care Teams Repeat Chief Relationship Specialty Start Date End Date Unknown, Provider, PCP - General 05/20/11 06/27/19 documented as of this encounter
--- OUTSIDE RECORDS SUMMARY | 2024-11-05 16:36 | XMS_ITS | Encounter Summary ---
[place] [address] Care Team Providers Care Director Digital Name Role Phone Palmira Hartley APRN Primary Care Provider [phone] Encounter Details Date Type Department Care Team (Late st Contact Info) Description 07/17/2023 Telephone [place] [phone] Farzaneh Palomino RN Social History Tobacco Use [...] on filedocumented in this encounter Care Teams Director Digital Relationship Specialty Start Date End Date Palmira Hartley APRN [address] [place] [address] PCP - General Family Medicine 02/25/22 documented as of this encounter
--- OUTSIDE RECORDS SUMMARY | 2024-11-05 16:36 | XMS_ITS | Encounter Summary ---
Author Organization [facility] Address [facility] [place] [address] Care Team Providers Care Range Technician Name Role Phone Palmira Hartley APRN Primary Care Provider [phone] Reason for Visit * Consultation (Routine) - Closed Specialty Diagnoses / Procedures Referred By Gregg barraza Referred To Contact Otolaryngology Diagnoses Tonsil asymmetry Palmira Hartley APRN [address] [place] [address] [facility] [address] [place] [phone] Referral ID Status Reason Start Date Expiration Date V isits Requested Visits Authorized [id number] Closed Consult, Test & Treat PCP Updated and/or Approved 04/12/2023 04/12/2024 12 12 Encounter Details Date Type Department Care Team (Late st Contact Info) Description 08/07/2023 3:40 PM EDT Office [place] [address] Isabelle Salmon MD [facility] [place] [address] Tonsil asymmetry Social History Tobacco [...] Salmon MD - 08/07/2023 3:40 PM EDT [facility] Otolaryngology - Head and Neck Surgery Isabelle Salmon MD 08/07/23 3:[address] [address] Office Patient Name: Juany Tristan Date of : 1985 PCP: Palimra Hartley APRN Chief Complaint/History of Present Illness: [...] 3.45) performed by Isabelle Salmon MD at [facility] Family and Social History Family History: No family history on file. Social History: Lives in [facility] [address] Social History Socioeconomic History Marital status: Spouse [...] Mccrary Verified: 07/19/2023 10:27 Pathologist Performed at: -[facility] Dept. of Pathology, [place] [address] Carpet Measurer: Frandy Villanueva MD, FCAP, [place] Certificate: [id number] SPECIMEN(S) SUBMITTED A - RIGHT TONSIL, other [...] adenoids documented in this encounter Care Teams Range Technician Relationship Specialty Start Date End Date Palmira Hartley APRN [address] [place] [address] PCP - General Family Medicine 02/25/22 documented as of this encounter
--- OUTSIDE RECORDS SUMMARY | 2024-11-05 16:36 | XMS_ITS | Clinical Summary ---
Author Organization [facility] [place] [address] Care Team Providers Care Steel Checker Name Role Phone Palmira Hartley APRN Primary Care Provider [phone] Allergies Active Allergy Reactions Criticality Noted Date [...] - Influenza standard series) 06/23/2024 Care Teams Steel Checker Relationship Specialty Start Date End Date Palmira Hartley APRN [address] [place] [address] PCP - General Family Medicine 02/25/22
--- OUTSIDE RECORDS SUMMARY | 2024-11-05 16:36 | XMS_ITS | Encounter Summary ---
[place] [address] Care Team Providers Care Bioinformatics Developer Name Role Phone Palmira Hartley APRN Primary Care Provider [phone] Reason for Visit * Auth/Cert (Routine) Specialty Diagnoses / Procedures Referred By Gregg barraza Referred To Contact Diagnoses Tonsil asymmetry tonsil asymmetry Procedures PRO REMOVAL OF TONSILS, 12+ Y/O TONSILLECTOMY AGE 12 AND OVER (WRVU 3.45) Isabelle Salmon MD [facility] [place] [address] [facility] Referral ID Status Reason Start Date Expiration Date Visits Re quested Visits Authorized [id number] 1 1 Encounter Details Date Type Department Care Team (Late st Contact Info) Description 07/14/2023 10:25 AM EDT Anesthesia Event Outpatient [place] [phone] Elle Garcia MD [facility] [place] [address] Anesthesia Record Procedure Summary Procedure Name Responsible [...] 0951; metacarpal vein (top of hand), right; [id number] catheter system; Anatomical Landmarks, Transillumination; 22 gauge, [...] Procedure Summary Date: 07/14/23 Room / Location: [address] [facility] Anesthesia Start: 1025 Anesthesia Stop: 1104 Procedure: TONSILLECTOMY AGE 12 AND OVER (WRVU 3.45) (Mouth) Diagnosis: Tonsil asymmetry (tonsil asymmetry) Surgeons: Isabelle Salmon MD Responsible Provider: Elle Garcia MD Anesthesia Type: general ASA Status: 2 All Anesthesia Providers: Anesthesiologist: Elle Garcia MD CDL DEDICATED TRUCK DRIVER: Lela Ivey CRNA Vitals Value Taken Time BP 128/87 07/14/23 1130 Temp Pulse 73 07/14/23 1139 Resp 18 07/14/23 1115 SpO2 95 % 07/14/23 1139 Pain Level Vitals shown include unvalidated device data. Patient Location: PACU/[facility] Level of Consciousness: Awake and Alert [...] discussed with patient who. Plan discussed with CDL DEDICATED TRUCK DRIVER. Anesthesia Screening documented in this encounter Plan [...] mg documented in this encounter Care Teams Bioinformatics Developer Relationship Specialty Start Date End Date Palmira Hartley APRN [address] [place] [address] PCP - General Family Medicine 02/25/22 documented as of this encounter
== END 2024-11-05 16:35 | disposition home or self-care (01) ==
LOC: NCHCN 16:34
PROVIDERS: PCP Nurse Practitioner Family; Visit Provider Nurse Practitioner Family
DX: R30.0 Dysuria (principal)
CPT/HCPCS: 81513; 87481; 87491; 87591; 87661; 87480; 87510; 87660

== ENCOUNTER 2025-09-24 15:48 | Outpatient (REF) | payer OTHER, SELFPAY ==
[2025-09-24 20:44] LABS: HCT 46.5 % (36.0-46.0); HGB 15.6 g/dL (11.2-15.7); MCH 29.7 pg (27.0-33.0); MCHC 33.5 % (32.0-36.0); MCV 88 fL (80-95); MPV 9.9 fL (8.0-11.0); Platelet Count 381 10^3/uL (130-400); RBC 5.26 10^6/uL (3.93-5.22); RDW 12.3 % (11.7-14.6); RDW-SD 40.2 fL; WBC 9.41 10^3/uL (4.4-10.8)
[2025-09-24 21:00] LABS: ALT 41 U/L (10-49); AST 35 U/L (<34); Albumin 4.6 g/dL (3.2-5.0); Alkaline Phosphatase 102 U/L (46-116); Anion Gap 8 mmol/L (3-11); BUN 8 mg/dL (9-23); Bilirubin, Total 0.40 mg/dL (0.2-1.2); CO2 27.0 mmol/L (20.0-31.0); Calcium 9.9 mg/dL (8.3-10.6); Chloride 102 mmol/L (98-107); Glucose 80 mg/dL (74-106); Potassium 4.2 mmol/L (3.5-5.1); Sodium 137 mmol/L (136-145); Total Protein 7.6 g/dL (5.7-8.2)
[2025-09-24 21:03] LABS: TSH (W/Ref FT4) 1.67 uIU/mL (0.55-4.78)
[2025-09-24 21:05] LABS: Iron 52 ug/dL (50-170); Total Iron Binding Capacity 341 ug/dL (250-425); Transferrin Sat 15 % (15-50)
[2025-09-25 18:23] LABS: FSH 4.7 mIU/mL (See Note)
== END 2025-09-24 15:49 | disposition home or self-care (01) ==
LOC: NCHCN 15:48
PROVIDERS: PCP Nurse Practitioner Family; Visit Provider Nurse Practitioner Family
DX: R45.86 Emotional lability (principal)
CPT/HCPCS: 80053; 84403; 85027; 83001; 83540; 83550; 84443